=== PATIENT | female | born 1995 | race Caucasian/White ===

== ENCOUNTER 2019-11-22 09:25 | Emergency (ER) | payer MEDICAID, SELFPAY ==
[2019-11-22 09:26] VITALS: BP 135/80; PULSE 83; RESP 16; TEMP 36.8; O2SAT 98; BMI 43.9
[2019-11-22 09:55] LABS: Color, Urine Yellow (Yellow); Glucose, Dipstick Normal (Normal); Ketone-Dipstick Negative (Negative); Leukocyte Esterase-Dipstick 25 /ul (Negative); Nitrite-Dipstick Negative (Negative); Occult Blood-Urine 250 /ul (Negative); Protein-Dipstick Negative (Negative); Urine Bilirubin Dipstick Negative (Negative); Urine Clarity Clear (Clear); Urine Urobilinogen Normal (Normal)
--- NOTE | 2019-11-22 09:55 | ED.VIS.GEN ---
History of Present Illness Onset: Yesterday Context: Gradual Onset Timing: Intermittent Quality: cramping Location: pelvis Current Severity: Mild Maximum Severity: Mild Worsened by: nothing Relieved by: nothing Associated Symptoms: Vaginal bleeding, pelvic cramping Narrative: 24-year-old female G2, P1 estimated to be 5 weeks gestation based on her last menstrual period presents to the emergency department with vaginal bleeding. It started yesterday. Is gotten progressively more heavy. It is still less than her 1 of her menstrual periods, and she has not had clots or tissue. She is having mild bilateral lower pelvic cramping that she rates at a 3 out of 10. No nausea or vomiting. No diarrhea melena or hematochezia. No urinary symptoms. She has not yet had an STATUARY PAINTER visit. She is not on blood thinners. Prior similar symptoms: No Recent Illness/Hospitalization: No <Lj Romero - Last Filed: 11/22/19 10:42> <Annette Fernández - Last Filed: 11/22/19 11:20> Chief Complaint: Vag Bld, Preg Past Medical History Prior records reviewed: Yes Past Medical History: None Surgical History: no surgical history Lives: With Family Smoking Status: Never smoker <Lj Romero - Last Filed: 11/22/19 10:42> <Annette Fernández - Last Filed: 11/22/19 11:20> - Allergies and Home Meds Allergies/Adverse Reactions: Allergies Juwan flouride Adverse Reaction (Intermediate, Uncoded 11/22/19 09:26) Hives Primary Care Physician: Estrella Hannon MD [STAFF PHYSICIAN] - 2 Days Review of Systems All systems negative except as indicated General: Denies: Chills, Fever Eyes: Denies: Visual changes - bilaterally, Blurred Vision - bilaterally, Diplopia ENT: Denies: Rhinorrhea, Sore throat Cardiovascular: Denies: Chest pain, Palpitations, Heart racing Respiratory: Denies: Dyspnea, Cough, Sputum, Dyspnea on exertion Gastrointestinal: Denies: Abdominal pain, Nausea, Vomiting, Diarrhea, Constipation, Melena, Hematochezia Genitourinary: Denies: Dysuria, Hematuria, Frequency Musculoskeletal: Denies: Neck pain, Back pain, Swelling, Extremity Pain Skin: Denies: Rash, Abscess, Abrasions, Wounds Neurological: Denies: Headache, Weakness, Parasthesia, Numbness Endocrine: Denies: Polyuria, Polydipsia Hematologic: Denies: Easy bruising, Easy bleeding <Lj Romero - Last Filed: 11/22/19 10:42> Physical Exam Vital Signs/Narrative: Vital Signs Temp Pulse Resp BP Pulse Ox 11/22/19 09:26 98.3 F 83 16 135/80 H 98 Inital Vital Signs reviewed: Yes General: Well nourished, Well developed, Obese, No Acute Distress Head: Normocephalic, Atraumatic Eyes: Perrl, EOMI ENT: Moist mucous membranes Neck: Supple, Nontender, No lymphadenopathy, No JVD Cardiovascular: Regular rate, Regular rhythm, No murmurs Respiratory: No distress, CTA bilaterally, Chest nontender Abdomen: Soft, Nontender, Nondistended, Normal bowel sounds, No masses Back: Nontender, Normal Inspection Extremities: Nontender, No edema Skin: Normal color, No rash, No Trauma Neurological: Alert, Oriented x3 Psychological: Normal affect, Normal Mood <Lj Romero - Last Filed: 11/22/19 10:42> Vital Signs/Narrative: Vital Signs Temp Pulse Resp BP Pulse Ox 11/22/19 11:00 79 15 128/75 H 11/22/19 09:26 98.3 F 83 16 135/80 H 98 <Annette Fernández - Last Filed: 11/22/19 11:20> Diagnostic/Tx/Re-eval - Medical Decision Making Patient without active bleeding on arrival. Patient's laboratory work-up unremarkable her quantitative hCG is just over 200. Repeat evaluation patient is not having abdominal pain or bleeding. I spoke with her STATUARY PAINTER Dr. Hannon, recommended that the patient follow-up with her in 48 hours for repeat quantitative hCG. Discussed with patient at this time due to her low quantitative hCG level, resolution of her bleeding and the fact that she is not having pain we do not need to do a emergent ultrasound and she is agreeable with this plan. She was given return precautions. She was discharged home and will follow-up as directed <Lj Romero - Last Filed: 11/22/19 10:42> - Medical Decision Making Patient was seen with Lj agree with history physical as above her abdomen soft nontender bleeding has been spotting by her history she has no strip ectopic this is her second , at this time ED evaluation will consist of labs she has nontender abdomen bleeding is very minor we will determine advisability of ultrasound today is that technology is not readily available today and discuss management with her STATUARY PAINTER team <Annette Fernández - Last Filed: 11/22/19 11:20> ED Disposition <Lj Romero - Last Filed: 11/22/19 10:42> <Annette Fernández - Last Filed: 11/22/19 11:20> - Plan for ED Patient: Disposition: Home or Assisted Living Diagnosis: Vaginal bleeding during Instructions: POSSIBLE MISCARRIAGE (Threatened ) Referrals: Estrella Hannon MD [STAFF PHYSICIAN] - 2 Days
[2019-11-22 10:14] LABS: Absolute Lymphocyte Count 1.51 X10^3/uL (0.83-4.51); Absolute Neutrophil Count 6.2 X10^3/uL (2.0-7.7); Basophil# 0.04 X10^3/uL; Basophil% 0.5 % (0-1); Eosinophil# 0.13 X10^3/uL; Eosinophils% 1.5 % (0-5); Hematocrit 40.1 % (37-47); Lymphocyte # 1.51 X10^3/ul (4.0); Mean Corp Hgb Conc 32.4 g/dL (32-36); Mean Corpuscular Hgb 26.7 pg (27.0-32.0); Mean Corpuscular Volume 82.5 fL (81-99); Monocyte# 0.44 X10^3/uL; Monocyte% 5.2 % (0-10); NRBC Flagged by Analyzer 0 % (0-5); Neutrophil # 6.23 X10^3/uL (2.7-7.7); Neutrophil % 74.2 % (47-70); POSITIVE COUNT YES; Platelet Count 54 K/mm3 (150-450); RBC Distribution Width CV 14.2 % (11.6-14.6); RBC Distribution Width SD 42.1 fl (35.1-43.9); Red Blood Count 4.86 M/mm3 (4.2-5.4); White Blood Count 8.4 K/mm3 (4.4-11.0)
[2019-11-22 10:20] LABS: Differential Indicated SCAN CRITERIA MET
[2019-11-22 10:32] LABS: hCG Titer Quant., Serum 233 mIU/mL (1-3)
[2019-11-22 10:48] LABS: Platelet Estimate MOD DEC (ADEQ); Platelet Morphology LARGE; Red Cell Morphology NORM C+C NORMAL (NORM C&C)
[2019-11-22 11:00] VITALS: BP 128/75; PULSE 79; RESP 15
== END 2019-11-22 11:01 | disposition home or self-care (01) ==
PROVIDERS: Emergency Provider Physician Assistant Medical
DX: O20.9 Hemorrhage in early pregnancy, unspecified (principal); O99.211 Obesity complicating pregnancy, first trimester; Z3A.01 Less than 8 weeks gestation of pregnancy
CPT/HCPCS: 81002; 84702; 85025; 86900; 86901; 99284

== ENCOUNTER → 2019-11-24 | Outpatient (CLI) | payer MEDICAID, SELFPAY ==
[2019-11-22 09:26] VITALS: BMI 43.9
[2019-11-24 11:36] LABS: hCG Titer Quant., Serum 77 mIU/mL (1-3)
== END | disposition home or self-care (01) ==
LOC: LAB 10:29
PROVIDERS: Referring Provider Obstetrics & Gynecology; Visit Provider Obstetrics & Gynecology
DX: N92.6 Irregular menstruation, unspecified (principal)
CPT/HCPCS: 36415; 84702

== ENCOUNTER → 2019-12-02 | Outpatient (CLI) | payer MEDICAID, SELFPAY ==
[2019-11-22 09:26] VITALS: BMI 43.9
[2019-12-02 15:03] LABS: hCG Titer Quant., Serum 38 mIU/mL (1-3)
[2019-12-02 18:21] LABS: Chlamydia Trachomatis by PCR Negative (Negative); Neisserai gonorrhoeae by PCR Negative (Negative); Probe Check PASS; Sample Adequacy Control PASS; Specimen Processing Control PASS
[2019-12-04 14:47] LABS: HPV Reflexed? NOT INDICATED
== END | disposition home or self-care (01) ==
LOC: LAB 13:27 → LABSPEC 16:22
PROVIDERS: Referring Provider Nurse Practitioner Women's Health; Visit Provider Nurse Practitioner Women's Health
DX: O03.9 Complete or unspecified spontaneous abortion without complication (principal); Z12.4 Encounter for screening for malignant neoplasm of cervix
CPT/HCPCS: 36415; 84702; 87491; 87591; 88175; G0145

== ENCOUNTER → 2019-12-09 11:39 | Outpatient (CLI) | payer MEDICAID, SELFPAY ==
[2019-12-02 14:57] VITALS: BMI 43.9
[2019-12-09 13:17] LABS: hCG Titer Quant., Serum 34 mIU/mL (1-3)
== END ==
PROVIDERS: Referring Provider Nurse Practitioner Women's Health; Visit Provider Nurse Practitioner Women's Health
DX: O03.9 Complete or unspecified spontaneous abortion without complication (principal)
CPT/HCPCS: 36415; 84702

== ENCOUNTER → 2019-12-11 | Outpatient (CLI) | payer MEDICAID, SELFPAY ==
[2019-12-02 14:57] VITALS: BMI 43.9
[2019-12-11 12:06] LABS: hCG Titer Quant., Serum 26 mIU/mL (1-3)
== END | disposition home or self-care (01) ==
LOC: LAB 11:15
PROVIDERS: Referring Provider Obstetrics & Gynecology; Visit Provider Obstetrics & Gynecology
DX: O03.9 Complete or unspecified spontaneous abortion without complication (principal)
CPT/HCPCS: 36415; 84702

== ENCOUNTER → 2019-12-18 | Outpatient (CLI) | payer MEDICAID, SELFPAY ==
[2019-12-02 14:57] VITALS: BMI 43.9
[2019-12-18 11:35] LABS: hCG Titer Quant., Serum 29 mIU/mL (1-3)
== END | disposition home or self-care (01) ==
LOC: LAB 10:34
PROVIDERS: Referring Provider Obstetrics & Gynecology; Visit Provider Obstetrics & Gynecology
DX: O03.9 Complete or unspecified spontaneous abortion without complication (principal)
CPT/HCPCS: 36415; 84702

== ENCOUNTER → 2019-12-21 | Outpatient (CLI) | payer MEDICAID, SELFPAY ==
[2019-12-02 14:57] VITALS: BMI 43.9
[2019-12-21 13:32] LABS: hCG Titer Quant., Serum 20 mIU/mL (1-3)
== END | disposition home or self-care (01) ==
LOC: LAB 12:23
PROVIDERS: Referring Provider Obstetrics & Gynecology; Visit Provider Obstetrics & Gynecology
DX: O03.9 Complete or unspecified spontaneous abortion without complication (principal)
CPT/HCPCS: 36415; 84702

== ENCOUNTER → 2019-12-28 | Outpatient (CLI) | payer MEDICAID, SELFPAY ==
[2019-12-02 14:57] VITALS: BMI 43.9
[2019-12-28 17:03] LABS: hCG Titer Quant., Serum 17 mIU/mL (1-3)
== END | disposition home or self-care (01) ==
LOC: LAB 16:20
PROVIDERS: Referring Provider Obstetrics & Gynecology; Visit Provider Obstetrics & Gynecology
DX: O03.9 Complete or unspecified spontaneous abortion without complication (principal)
CPT/HCPCS: 36415; 84702

== ENCOUNTER → 2020-01-04 | Outpatient (CLI) | payer MEDICAID, SELFPAY ==
[2019-12-02 14:57] VITALS: BMI 43.9
[2020-01-04 16:42] LABS: hCG Titer Quant., Serum 9 mIU/mL (1-3)
== END | disposition home or self-care (01) ==
LOC: LAB 15:29
PROVIDERS: Referring Provider Nurse Practitioner Women's Health; Visit Provider Nurse Practitioner Women's Health
DX: N91.2 Amenorrhea, unspecified (principal)
CPT/HCPCS: 36415; 84702

== ENCOUNTER 2021-10-26 10:09 | Day surgery (SDC) | payer MEDICAID, SELFPAY ==
[2021-10-25 11:33] LABS: Hematocrit 35.7 % (37-47); Hemoglobin 10.6 g/dL (12.0-15.0); Mean Corp Hgb Conc 29.7 g/dL (32-36); Mean Corpuscular Hgb 20.9 pg (27.0-32.0); Mean Corpuscular Volume 70.6 fL (81-99); Platelet Count 113 K/mm3 (150-450); RBC Distribution Width CV 16.8 % (11.6-14.6); RBC Distribution Width SD 41.8 fl (35.1-43.9); Red Blood Count 5.06 M/mm3 (4.2-5.4)
[2021-10-25 12:01] LABS: AST(SGOT) 8 U/L (15-37); Alanine Aminotransfer ALT/SGPT 23 U/L (13-56); Albumin, Serum 3.5 g/dL (3.2-5.0); Alkaline Phosphatase 79 U/L (45-117); Bilirubin, Direct 0.08 mg/dL (0.00-0.30); Globulin 3.8 g/dL (2.2-4.2); International Normalized Ratio 1.2; Partial Thromboplast Time 27.3 Seconds (24.1-36.2); Protein, Total 7.3 g/dL (6.4-8.2); Prothrombin Time (Protime)PT. 14.1 SECONDS (11.7-14.9)
[2021-10-26 10:49] VITALS: BP 122/78; PULSE 104; RESP 18; TEMP 36.6; O2SAT 99; BMI 47.5
[2021-10-26 10:53] LABS: Internal QC Validated? YES +Cl - CLEAR BKGD; Pregnancy, Urine Negative Negative
[2021-10-26] MEDS: Lactated Ringers 1,000 ML 15 ML IV (11:02)
[2021-10-26] MEDS: Celecoxib 200 MG Capsule PO (11:06)
[2021-10-26] MEDS: Acetaminophen 500 MG Tablet 1000 MG PO (11:06)
[2021-10-26] MEDS: Bupivacaine Mpf 0.5% 30 ML VIAL (12:39)
[2021-10-26] MEDS: Levonorgestrel IUD (Liletta) 1 EACH INTRA-UTER (13:03)
--- NOTE | 2021-10-26 13:14 | OP.PCM_ITS ---
Problems Associated Problem List Diagnoses (1) Request for sterilization: (2) Encounter for IUD insertion: Report of Operation Date of Procedure: 10/26/21 Pre-Operative Diagnosis: IUD insertion, Sterilization request Post-Operative Diagnosis: same Surgery/Procedure Performed:: Laparoscopic bilateral salpingectomy and Liletta IUD insertion Description of Surgical Findings:: normal vagina and cervix, normal uterus, tubes and ovaries Surgeon: Romina Park well logging mud analysis captain: None Type of Anesthesia: General Anesthesiologist: Rex Holliday Special Medications: none Specimen's removed: bilateral fallopian tubes Drains: none Estimated Blood Loss (mL): 10 Fluids Replaced: 600 Description of Procedure: The patient was taken to the operating room where she was prepped and draped in the dorsolithotomy position. A weighted speculum was placed in the vagina and the anterior lip of the cervix was grasped with a tenaculum. The Elvira uterine manipulator was placed and the remainder of the instruments were removed from the vagina. Attention was turned to the abdomen. All port sites were infiltrated with 0.5% Marcaine before skin incisions were made. A 5 mm intraumbilical incision was made. The anterior abdominal wall was tented up with 2 towel clamps while a 5 mm blade less trocar and sleeve were directly inserted. Intraperitoneal placement was confirmed with the laparoscope. The pneumoperitoneum was created and the underlying abdominal contents were intact. The patient was placed in Trendelenburg. Right and left lower quadrant ports were placed under direct visualization lateral to the inferior epigastric vessels. The bowel was swept away and the above findings were noted. The Enseal device was used to clamp seal and transect the antimesenteric portions of the right tube to the cornual insertion of the uterus. The tube was amputated from the uterus and the pedicles were all confirmed to be hemostatic. The same procedure was performed on the contralateral side. The specimens were brought out through a 5 mm port. The pedicles were again examined and found to be hemostatic. The lateral ports were removed under direct visualization and no active bleeding was noted. The pneumoperitoneum was released. The skin incisions were closed with Monocryl suture in a subcuticular fashion and skin glue. The Liletta IUD was then inserted in the usual sterile fashion. The strings were trimmed to 2 cm. The vaginal instruments were removed and the vaginal sweep was completed by me. I performed the entire procedure. All sponge and needle counts were correct and the patient was taken to the recovery room in stable condition. Grafts/Implants Used: Liletta IUD Procedure Start Time: 12:40 Procedure Stop Time: 13:07 Complications none Admit VTE Documentation VTE Present on Admission: No VTE Mechan Device Prophylaxis: SCD's VTE Pharm Prophylaxis ordered?: No Reason prophylaxis not ordered:: Procedure Not Indicated
[2021-10-26 13:16] VITALS: BP 119/70; BP 122/78; PULSE 70; RESP 16; TEMP 36.7; O2SAT 97
--- NOTE | 2021-10-26 13:20 | FALS_PTH ---
PATIENT: CHERYL MCKEE LOC: [facility] – [place] U#:[id number] AGE/SX: 26/F ROOM: RE10/26/[address]: Dr. Romina Park MD : 1995 BED: DIS: 10/26/2021 SPEC #: [id number] RECD: 10/26/21 14:46 STATUS: VIC [place] #: [id number] SANTIAGO: 10/26/21 13:[address]: Romina Park DEPT: SURGICAL PATHOLOGY RECD BY: Loreta Hahn ENTERED: 10/27/21 09:41 SP TYPE: FALL TUBES OTHR DR: Dr. Stef Farrell MD No Primary Care Phys Tissues: Fallopian tube Procedures: Surgery Specimen Level II HEADER OPERATION: Laparoscopic salpingectomy, bilateral, IUD insertion PRE-OP DIAGNOSIS: Anemia, blood dyscrasia, sterilization TISSUE SUBMITTED: Bilateral fallopian tubes MICROSCOPIC DIAGNOSIS Bilateral fallopian tubes, salpingectomy: Bilateral fallopian tubes, no pathologic diagnosis. MARGUERITE:aminah 10/30/2021 MICROSCOPIC DESCRIPTION Slides are reviewed. GROSS DESCRIPTION Received in fixative is one container labeled with the patient's name and designated bilateral fallopian tubes. The specimen consists of bilateral fallopian tubes including fimbrial ends measuring 5 cm in length and 0.5 cm in diameter and 6 cm in length and 0.5 cm in diameter. The fallopian tubes are not identified as right or left. Sections reveal unremarkable cut surfaces. [employer] Consultant sections are submitted in two cassettes with each cassette containing one fallopian tube. / Justin 10/27/2021 TC:4 CPT: 25129 x2
--- NOTE | 2021-10-26 13:22 | PCM.DC ---
Discharge Instructions Diet Discharge Diet: No restrictions Activity May resume sexual activity in: 1 week Dressing / Incision Call your doctor if your incision/area has: Sudden Increased Bleeding and Foul Smelling Discharge Call your doctor if you observe: Fever of 101 or Higher Cleanse incision/area with: Soap & Water (Your incisions have skin glue and it can get wet. Leave on until it falls off) Follow Up Care Please Follow Up With: Romina Park MD When: In my office or virtual visit in 1-2 weeks or as needed Test Results: Test results from this visit will be discussed in further detail at your follow-up appointment, if applicable. Discharge Plan Admission Primary Reason for Your Visit: tubal removal Attending Provider: Romina Park Primary Care Provider: Care Physician,No Primary Consulting Providers: Stef Farrell Discharge Orders/Prescriptions Prescriptions: New ibuprofen [ibuprofen] 600 MG tablet 600 mg PO Q6H PRN (Reason: Pain) 20 Days Qty: 30 RF: 1 oxycodone 5 MG tablet 2.5 - 5 mg PO Q6H PRN PRN (Reason: severe pain) 3 Days Qty: 8 RF: 0 Referrals / Follow Up: Care Physician,No Primary [Primary Care Provider] - Disposition Disposition (needs filled in before D/C Order can be placed): Home, Self Care
[2021-10-26 13:30] VITALS: BP 122/78; BP 124/72; PULSE 67; RESP 16
[2021-10-26 13:45] VITALS: BP 103/89; BP 122/78; PULSE 60; RESP 16; O2SAT 99
[2021-10-26 14:00] VITALS: BP 100/72; BP 122/78; PULSE 78; RESP 16; TEMP 36.7; O2SAT 99
[2021-10-26] MEDS: oxyCODONE 5 MG Tablet PO (14:23)
[2021-10-26 15:08] VITALS: BP 119/67; BP 122/78; PULSE 77; RESP 18; TEMP 36.5; O2SAT 100
== END 2021-10-26 23:59 | disposition home or self-care (01) ==
LOC: SDC 10:10 → AC 10:10
PROVIDERS: Anesthesiology; Referring Provider Obstetrics & Gynecology; Visit Provider Obstetrics & Gynecology
PROC: (CPT 58661; principal; 2021-10-26 13:05)
DX: Z30.2 Encounter for sterilization (principal); Z30.430 Encounter for insertion of intrauterine contraceptive device; D64.9 Anemia, unspecified; Z79.899 Other long term (current) drug therapy
CPT/HCPCS: 58300; 58661; 00840; 36415; 80076; 81025; 85027; 85610; 85730; 87426; 88302; C9803; J7120; C1760; J2405

== ENCOUNTER → 2023-07-29 | Outpatient (CLI) | payer MEDICAID, SELFPAY ==
[2023-07-29 12:39] LABS: Hematocrit 41.1 % (37-47); Hemoglobin 13.1 g/dL (12.0-15.0); Mean Corp Hgb Conc 31.9 g/dL (32-36); Mean Corpuscular Hgb 26.6 pg (27.0-32.0); Mean Corpuscular Volume 83.4 fL (81-99); POSITIVE COUNT YES; Platelet Count 83 K/mm3 (150-450); RBC Distribution Width CV 13.7 % (11.6-14.6); RBC Distribution Width SD 41.9 fl (35.1-43.9); Red Blood Count 4.93 M/mm3 (4.2-5.4); White Blood Count 8.3 K/mm3 (4.4-11.0)
[2023-07-29 13:03] LABS: Vitamin D,25 Hydroxy 26.2 ng/mL
[2023-07-29 13:20] LABS: Hemoglobin A1c 4.9 % (3.8-5.6)
[2023-07-29 13:22] LABS: ALB/GLOB Ratio 1.1 RATIO (0.9-2.4); AST(SGOT) 27 U/L (15-37); Alanine Aminotransfer ALT/SGPT 19 U/L (13-56); Albumin, Serum 3.6 g/dL (3.2-5.0); Alkaline Phosphatase 61 U/L (45-117); Anion Gap 5 (5-15); BUN 10 mg/dL (7-18); BUN/Creat Ratio 15.3 RATIO (10-20); Calcium,Total 8.4 mg/dL (8.5-10.1); Chloride 110 mmol/L (98-107); Creatinine, Serum 0.66 mg/dL (0.55-1.02); EST Glomerular Filtration Rate 115 mL/min (>60); Est Glom Filt Rate - Afr Amer 139 mL/min (>60); Globulin 3.3 g/dL (2.2-4.2); Glucose 93 mg/dL (74-106); Iron 85 ug/dL (50-170); Iron Binding Capacity,Total 374 ug/dL (250-450); Potassium 4.9 mmol/L (3.5-5.1); Protein, Total 6.9 g/dL (6.4-8.2); Sodium Level 136 mmol/L (136-145); Thyroid Stim Hormone (TSH) 1.28 uIU/mL (0.358-3.74)
== END | disposition home or self-care (01) ==
LOC: LAB 11:15
DX: E55.9 Vitamin D deficiency, unspecified (principal); E61.1 Iron deficiency
CPT/HCPCS: 36415; 80053; 82306; 83036; 83540; 83550; 84443; 85027

== ENCOUNTER 2023-11-06 11:30 | Outpatient (RCR) | payer MEDICAID, SELFPAY | END 2023-11-14 23:59 | LOC: NS 11:30 | PROVIDERS: PCP Internal Medicine; Referring Provider Internal Medicine; Visit Provider Internal Medicine | DX: Z71.3 Dietary counseling and surveillance (principal); E66.01 Morbid (severe) obesity due to excess calories; Z68.43 Body mass index [BMI] 50.0-59.9, adult | CPT/HCPCS: 97802; 97803 ==

== ENCOUNTER 2023-11-19 11:45 | Outpatient (RCR) | payer MEDICAID, SELFPAY | END 2023-12-15 23:59 | LOC: NS 11:45 | PROVIDERS: PCP Internal Medicine; Referring Provider Internal Medicine; Visit Provider Internal Medicine | DX: Z71.3 Dietary counseling and surveillance (principal); E66.01 Morbid (severe) obesity due to excess calories; Z68.43 Body mass index [BMI] 50.0-59.9, adult | CPT/HCPCS: 97803 ==

== ENCOUNTER 2023-12-18 10:52 | Outpatient (RCR) | payer MEDICAID, SELFPAY | END 2024-01-14 23:59 | LOC: NS 10:52 | PROVIDERS: PCP Internal Medicine; Referring Provider Internal Medicine; Visit Provider Internal Medicine | DX: Z71.3 Dietary counseling and surveillance (principal); E66.01 Morbid (severe) obesity due to excess calories; Z68.43 Body mass index [BMI] 50.0-59.9, adult | CPT/HCPCS: 97803 ==

== ENCOUNTER 2024-01-22 10:56 | Outpatient (RCR) | payer MEDICAID, SELFPAY | END 2024-02-14 23:59 | LOC: NS 10:56 | PROVIDERS: PCP Internal Medicine; Referring Provider Internal Medicine; Visit Provider Internal Medicine | DX: Z71.3 Dietary counseling and surveillance (principal); E66.01 Morbid (severe) obesity due to excess calories; Z68.43 Body mass index [BMI] 50.0-59.9, adult | CPT/HCPCS: 97803 ==

== ENCOUNTER 2024-02-26 10:48 | Outpatient (RCR) | payer MEDICAID, SELFPAY | END 2024-03-15 23:59 | LOC: NS 10:48 | PROVIDERS: PCP Internal Medicine; Referring Provider Internal Medicine; Visit Provider Internal Medicine | DX: Z71.3 Dietary counseling and surveillance (principal); E66.01 Morbid (severe) obesity due to excess calories; Z68.43 Body mass index [BMI] 50.0-59.9, adult | CPT/HCPCS: 97803 ==

== ENCOUNTER 2024-03-31 11:01 | Outpatient (RCR) | payer MEDICAID, SELFPAY | END 2024-04-15 23:59 | LOC: NS 11:01 | PROVIDERS: PCP Internal Medicine; Referring Provider Internal Medicine; Visit Provider Internal Medicine | DX: Z71.3 Dietary counseling and surveillance (principal); E66.01 Morbid (severe) obesity due to excess calories; Z68.43 Body mass index [BMI] 50.0-59.9, adult | CPT/HCPCS: 97803 ==

== ENCOUNTER 2024-04-30 10:47 | Outpatient (RCR) | payer MEDICAID, SELFPAY | END 2024-05-16 23:59 | LOC: NS 10:47 | PROVIDERS: PCP Internal Medicine; Referring Provider Internal Medicine; Visit Provider Internal Medicine | DX: Z71.3 Dietary counseling and surveillance (principal) ==

== ENCOUNTER 2024-04-30 15:30 | Outpatient (RCR) | payer MEDICAID, SELFPAY | END 2024-05-16 23:59 | LOC: NS 15:30 | PROVIDERS: PCP Internal Medicine; Referring Provider Internal Medicine; Visit Provider Internal Medicine | DX: Z71.3 Dietary counseling and surveillance (principal); E66.01 Morbid (severe) obesity due to excess calories; Z68.43 Body mass index [BMI] 50.0-59.9, adult | CPT/HCPCS: 97803 ==

== ENCOUNTER → 2024-05-09 | Outpatient (CLI) | payer MEDICAID, SELFPAY ==
[2024-05-09 09:10] LABS: Hematocrit 40.8 % (37-47); Hemoglobin 13.6 g/dL (12.0-15.0); Mean Corp Hgb Conc 33.3 g/dL (32-36); Mean Corpuscular Hgb 28.2 pg (27.0-32.0); Mean Corpuscular Volume 84.6 fL (81-99); Platelet Count 117 K/mm3 (150-450); RBC Distribution Width CV 13.7 % (11.6-14.6); RBC Distribution Width SD 42.3 fl (35.1-43.9); Red Blood Count 4.82 M/mm3 (4.2-5.4); White Blood Count 8.9 K/mm3 (4.4-11.0)
[2024-05-09 10:07] LABS: Hemoglobin A1c 4.7 % (3.8-5.6)
[2024-05-09 10:13] LABS: ALB/GLOB Ratio 1.1 RATIO (0.9-2.4); AST(SGOT) 8 U/L (15-37); Alanine Aminotransfer ALT/SGPT 14 U/L (13-56); Albumin, Serum 3.5 g/dL (3.2-5.0); Alkaline Phosphatase 64 U/L (45-117); Anion Gap 7 (5-15); BUN 12 mg/dL (7-18); BUN/Creat Ratio 14.1 RATIO (10-20); Calcium,Total 8.5 mg/dL (8.5-10.1); Chloride 114 mmol/L (98-107); Creatinine, Serum 0.85 mg/dL (0.55-1.02); EST Glomerular Filtration Rate 85 mL/min (>60); Est Glom Filt Rate - Afr Amer 102 mL/min (>60); Globulin 3.1 g/dL (2.2-4.2); Glucose 103 mg/dL (74-106); Iron 39 ug/dL (50-170); Iron Binding Capacity,Total 282 ug/dL (250-450); PERCENT IRON SATURATION 13.8 % (15.0-55.0); Potassium 3.7 mmol/L (3.5-5.1); Protein, Total 6.6 g/dL (6.4-8.2); Sodium Level 141 mmol/L (136-145)
[2024-05-11 10:10] LABS: Vitamin D,25 Hydroxy 34.2 ng/mL
== END | disposition home or self-care (01) ==
LOC: LAB 08:08
PROVIDERS: PCP Internal Medicine; Referring Provider Counselor Mental Health; Visit Provider Counselor Mental Health
DX: E55.9 Vitamin D deficiency, unspecified (principal); E61.1 Iron deficiency
CPT/HCPCS: 36415; 80053; 82306; 83036; 83540; 83550; 84443; 85027

== ENCOUNTER 2024-05-28 09:00 | Outpatient (RCR) | payer MEDICAID, SELFPAY | END 2024-06-15 23:59 | LOC: NS 09:00 | PROVIDERS: PCP Internal Medicine; Referring Provider Internal Medicine; Visit Provider Internal Medicine | DX: Z71.3 Dietary counseling and surveillance (principal); E66.01 Morbid (severe) obesity due to excess calories; Z68.43 Body mass index [BMI] 50.0-59.9, adult | CPT/HCPCS: 97803 ==

== ENCOUNTER 2024-05-28 09:50 | Outpatient (RCR) | payer MEDICAID, SELFPAY | END 2024-06-15 23:59 | LOC: NS 09:50 | PROVIDERS: PCP Internal Medicine; Referring Provider Internal Medicine; Visit Provider Internal Medicine | DX: Z71.3 Dietary counseling and surveillance (principal) ==

== ENCOUNTER 2024-07-02 10:11 | Outpatient (RCR) | payer MEDICAID, SELFPAY | END 2024-07-16 23:59 | LOC: NS 10:11 | PROVIDERS: PCP Internal Medicine; Referring Provider Internal Medicine; Visit Provider Internal Medicine | DX: Z71.3 Dietary counseling and surveillance (principal); E66.01 Morbid (severe) obesity due to excess calories; Z68.43 Body mass index [BMI] 50.0-59.9, adult | CPT/HCPCS: 97803 ==

== ENCOUNTER 2024-08-04 10:14 | Outpatient (RCR) | payer MEDICAID, SELFPAY | END 2024-08-15 23:59 | LOC: NS 10:14 | PROVIDERS: PCP Internal Medicine; Referring Provider Internal Medicine; Visit Provider Internal Medicine | DX: Z71.3 Dietary counseling and surveillance (principal); E66.01 Morbid (severe) obesity due to excess calories; Z68.43 Body mass index [BMI] 50.0-59.9, adult | CPT/HCPCS: 97803 ==

== ENCOUNTER 2024-09-03 09:49 | Outpatient (RCR) | payer MEDICAID, SELFPAY | END 2024-09-15 23:59 | LOC: NS 09:49 | PROVIDERS: PCP Internal Medicine; Referring Provider Internal Medicine; Visit Provider Internal Medicine | DX: Z71.3 Dietary counseling and surveillance (principal); E66.01 Morbid (severe) obesity due to excess calories; Z68.43 Body mass index [BMI] 50.0-59.9, adult | CPT/HCPCS: 97803 ==

== ENCOUNTER 2024-10-08 09:46 | Outpatient (RCR) | payer MEDICAID, SELFPAY | END 2024-10-16 23:59 | LOC: NS 09:46 | PROVIDERS: PCP Internal Medicine; Referring Provider Internal Medicine; Visit Provider Internal Medicine | DX: Z71.3 Dietary counseling and surveillance (principal); E66.01 Morbid (severe) obesity due to excess calories; Z68.42 Body mass index [BMI] 45.0-49.9, adult | CPT/HCPCS: 97803 ==

== ENCOUNTER 2024-11-12 09:57 | Outpatient (RCR) | payer MEDICAID, SELFPAY | END 2024-11-13 23:59 | LOC: NS 09:57 | PROVIDERS: PCP Internal Medicine; Referring Provider Internal Medicine; Visit Provider Internal Medicine | DX: Z71.3 Dietary counseling and surveillance (principal); E66.01 Morbid (severe) obesity due to excess calories; Z68.43 Body mass index [BMI] 50.0-59.9, adult | CPT/HCPCS: 97803 ==

== ENCOUNTER 2024-12-10 11:33 | Outpatient (RCR) | payer MEDICAID, SELFPAY | END 2024-12-14 23:59 | LOC: NS 11:33 | PROVIDERS: PCP Internal Medicine; Referring Provider Internal Medicine; Visit Provider Internal Medicine | DX: Z71.3 Dietary counseling and surveillance (principal); E66.01 Morbid (severe) obesity due to excess calories; Z68.42 Body mass index [BMI] 45.0-49.9, adult | CPT/HCPCS: 97803 ==

== ENCOUNTER → 2025-05-08 | Outpatient (CLI) | payer MEDICAID, SELFPAY ==
--- OUTSIDE RECORDS SUMMARY | 2025-05-08 08:14 | XMS RPT_ITS | CCD ---
Author Organization [facility] Care Team Providers Care Leaf Tinner Name Role Phone Care Physician, No Primary Primary Care Provider Unavailable Care Physician, No Primary Referring Provider Un available Dr. Yaquelin Stephens Attending Provider Angelo WHITT, Dr. Jamison Primary Care Provider [phone] Angelo WHITT, Dr. Jamison Attending Provider Angelo WHITT, Dr. Jamison Referring Provider Andrez Valenzuela Attending Provider [place], Yaquelin Primary Care Unavailable [place], Yaquelin Attending Unavailable Angelo, Yaquelin Referring Unavailable Angelo, Yaquelin Attending Unavailable [place], Yaquelin Referring Unavailable Angelo, Yaquelin Primary Care Unavailable [place], Yaquelin Primary Care Unavailable Care Physician, No Primary Referring Unava ilable Angelo, Yaquelin Attending Unavailable [place], Yaquelin Attending Unavailable Angelo, Yaquelin Referring Unavailable [place], Yaquelin Primary Care Unavailable [place], Yaquelin Attending Unavailable [place], Yaquelin Referring Unavailable [place], Yaquelin Primary Care Unavailable Angelo, Yaquelin Primary Care Unavailable JIHAN PRA, SCAR Attending Unavailable JIHAN PRA, SCAR Referring Unavailable Angelo, Yaquelin Primary Care Unavailable [place], Yaquelin Attending Unavailable [place], Yaquelin Referring Unavailable [place], Yaquelin Attending Unavailable Angelo, Yaquelin Referring Unavailable [place], Yaquelin Primary Care Unavailable Angelo, Yaquelin Primary Care Unavailable Andrez Valenzuela Attending Unavailable Angelo, Yaquelin Primary Care Unavailable [place], Yaquelin Attending Unavailable Angelo, Yaquelin Referring Unavailable Angelo, Yaquelin Primary Care Unavailable [place], Yaquelin Attending Unavailable Angelo, Yaquelin Referring Unavailable Angelo, Yaquelin Primary Care Unavailable Angelo, Yaquelin Primary Care Unavailable Angelo, Yaquelin Attending Unavailable [place], Yaquelin Referring Unavailable [place], Yaquelin Primary Care Unavailable [place], Yaquelin Attending Unavailable Angelo, Yaquelin Referring Unavailable [place], Yaquelin Primary Care Unavailable [place], Yaquelin Primary Care Unavailable [place], Yaquelin Attending Unavailable Angelo, Yaquelin Referring Unavailable [place], Yaquelin Primary Care Unavailable [place], Yaquelin Attending Unavailable [place], Yaquelin Referring Unavailable [place], Yaquelin Primary Care Unavailable [place], Yaquelin Referring Unavailable Angelo, Yaquelin Attending Unavailable [place], Yaquelin Primary Care Unavailable [place], Yaquelin Referring Unavailable Angelo, Yaquelin Attending Unavailable [place], Yaquelin Attending Unavailable Angelo, Yaquelin Referring Unavailable Agnelo, Yaquelin Primary Care Unavailable Angelo, Yaquelin Attending Unavailable Angelo, Yaquelin Referring Unavailable [place], Yaquelin Primary Care Unavailable Angelo, Yaquelin Primary Care Unavailable Angelo, Yaquelin Attending Unavailable [place], Yaquelin Referring Unavailable Allergies Allergy Classification Reported Allergen(s) Allergy Type Date of Onset Reaction(s) Facility (6 sources) Environmental Allergies: Uncoded; Translations: [Environmental Allergies: Uncoded] Propensity to adverse reactions 3 [facility] Comment on above: poly flourides Medications Current Medications Medication Drug Class(es) Dates Sig (Normalized) Sig (Original) cholecalciferol 0.025 mg oral capsule (4 sources) Vitamin D Start: 10-01-2023 take 1 capsule by mouth once daily Cholecalciferol (Vitamin D3) 25 mcg (1,000 unit) capsule Active 25 ug PO DAILY October 01, 2023 1:00am hydrOXYzine pamoate 25 mg oral capsule (4 sources) Antihistamine Start: 10-01-2023 take 1 capsule by mouth at bedtime Hydroxyzine Pamoate (Vistaril) 25 mg capsule Active 25 mg PO AT BEDTIME October 01, 2023 1:00am IUD (4 sources) Start: 10-01-2023 IUD Active VAGINAL October 01, 2023 1:00am Start: 10-01-2023 IUD Active VAG INAL October 01, 2023 12:00am lamoTRIgine 25 mg oral tablet (4 sources) Mood Stabilizer, Anti-epileptic Agent Start: 10-01-2023 Lamotrigine 25 mg tablet Active mg PO October 01, 2023 1:00am Start: 10-01-2023 Lamotrigine Ac tive MG PO October 01, 2023 1:00am ondansetron 4 mg oral tablet (1 source) Serotonin-3 Receptor Antagonist Start: 09-30-2024 take 1 tablet by mouth every six hours as needed for nausea and vomiting Ondansetron Hcl 4 mg tablet Active 4 mg PO EVERY 6 HOURS as needed for nausea and vomiting September 30, 2024 1:00am topiramate 50 mg oral tablet (5 sources) Start: 03-17-2024 Topiramate 50 mg tablet Active 100 mg PO March 17, 2024 1:27pm Start: 10-01-2023 End: 03-17-2024 Topiramate 50 mg tablet Disc ontinued mg PO October 01, 2023 1:00am March 17, 2024 1:27pm Start: 10-01-2023 Topiramate Act abigail MG PO October 01, 2023 1:00am traZODone hydrochloride 50 mg oral tablet (4 sources) Serotonin Reuptake Inhibitor Start: 10-01-2023 Trazodone 50 mg tablet Active mg PO October 01, 2023 1:00am Start: 10-01-2023 Trazodone Acti ve MG PO October 01, 2023 1:00am Completed/Discontinued Medications Medication Drug Class(es) Dates Sig (Normalized) Sig (Original) ibuprofen 600 mg oral tablet (5 sources) Nonsteroidal Anti-inflammatory Drug Start: 10-26-2021 End: 10-01-2023 take 1 tablet by mouth every six hours as needed for pain Ibuprofen 600 MG tablet Discontinued 600 mg PO EVERY 6 HOURS as needed for Pain 30 October 26, 2021 1:00am October 01, 2023 2:44pm oxyCODONE hydrochloride 5 mg oral tablet (5 sources) Opioid Agonist Start: 10-26-2021 End: 10-01-2023 take 2.5-5 mg by mouth every six hours as needed for pain Oxycodone 5 MG tablet Discontinued 2.5 - 5 mg PO EVERY 6 HOURS NEEDED as needed for severe pain 8 3 October 26, 2021 October 01, 2023 2:44pm Vit,Beki39-Qywy-Urfy c (4 sources) Start: 11-22-2019 End: 12-02-2019 take 1 tablet by mouth once daily Vit,Atwd22-Onwb-Oe lic Discontinued 1 TABLET PO DAILY November 22, 2019 1:00am December 02, 2019 2:55pm Start: 11-22-2019 End: 12-02-2019 take 1 tablet by mouth once daily Vit,Bsyt65-Lbzk-Vosib Discontinued 1 TABLET PO DAILY November 22, 2019 12:00am December 02, 2019 1:55pm Vit,Looz82-Ssid-Csfqb 1 TABLET tablet (1 source) Start: 11-22-2019 End: 12-02-2019 take 1 tablet by mouth once daily Vit,Wymv36-Vmod-Vsjvh 1 TABLET tablet Discontinued 1 {tbl} PO DAILY November 22, 2019 1:00am December 02, 2019 2:55pm Problems Problem Classification Problem Date Documented Date Episodic/Chronic Administrative/socia l admission (3 sources) Persons encountering health services in other specified circumstances; Translations: [Other reasons for seeking consultation] 10-01-2023 Episodic Anxiety disorders (8 sources) Post-traumatic stress disorder, unspecified; Translations: [Posttraumatic stress disorder] 10-01-2023 Chronic Coagulation and hemorrhagic disorders (4 sources) Immune thrombocytopenic purpura; Translations: [Immune thrombocytopenic purpura] 10-01-2023 Chronic Contraceptive and procreative management (10 sources) Sterilization requested; Translations: [Encounter for sterilization] 11-03-2021 Episodic Hemorrhage during ; abruptio placenta; placenta previa (5 sources) Bleeding from female genital tract during ; Translations: [Antepartum hemorrhage, unspecified, unspecified trimester] 11-23-2019 Episodic Intestinal infection (3 sources) Viral gastroenteritis; Translations: [Viral intestinal infection, unspecified] Onset: 09-30-2024 09-30-2024 Episodic Nausea and vomiting (2 sources) Nausea and vomiting; Translations: [Nausea with vomiting, unspecified] Onset: 09-30-2024 09-30-2024 Episodic Nutritional deficiencies (5 sources) Vitamin D deficiency, unspecified; Translations: [Unspecified vitamin D deficiency] Onset: 05-19-2024 10-01-2023 Chronic Other nervous system disorders (5 sources) Postoperative pain ; Translations: [Other acute postprocedural pain] 10-26-2021 Episodic Other nutritional; endocrine; and metabolic disorders (5 sources) Morbid (severe) obesity due to excess calories; Translations: [Morbid obesity] Onset: 12-15-2024 10-01-2023 Chronic Other nutritional; endocrine; and metabolic disorders (1 source) Body mass index 40+ - severely obese; Translations: [Morbid (severe) obesity due to excess calories] 10-08-2024 Chronic Residual codes; unclassified (3 sources) Immunization not carried out because of patient refusal; Translations: [Vaccination not carried out because of patient refusal] 10-01-2023 Episodic Residual codes; unclassified (1 source) Influenza vaccination declined; Translations: [Immunization not carried out because of patient refusal] 10-08-2024 Episodic Residual codes; unclassified (1 source) Memory impairment; Translations: [Other amnesia] 10-08-2024 Episodic Results Test Name Value Interpretation Reference Range Facility Internal Medicine Office Vis iton 10-07-2024 Internal Medicine Office Visit [facility] [address] [place] [address] OFFICE VISIT Date of Service: 10/08/24 MR#: [id number] Acct: [id number] Name: CHERYL SQIURES Rep #: [id number] : 1995 Provider: Dr. Yaquelin rosa MD Age/Sex: 29/F [place] [facility] Status: Signed Intake Vital Signs 09/03/24 10:00 10/08/24 10:01 10/08/24 11:25 Height 5 ft 2 in 5 ft 2 in 5 ft 2 in Weight: 257 lb BMI 47.0 BP 118/78 Blood Pressure Location Lt brachial Position Sitting Respiration 16 Pulse 106 H Pulse Source Monitor Temp 97.6 F L Temp Source Temporal Pulse Oximetry (%) 99 Oxygen Delivery Method room air Intake Visit Reasons: 6 M FU Chief Complaint: 6M FU Investment Specialist Required: No Accompanied by: Self Is patient in pain?: No Allergies Environmental Allergies: Uncoded Adverse Reaction (Intermediate, Verified 10/08/24 11:23) Hives Medications ???Medication ???Instructions ???Recorded ???Confirmed ???Type IUD vaginal 10/01/23 10/08/24 History cholecalciferol (vitamin D3) 25 25 mcg PO DAILY 10/01/23 10/08/24 History mcg (1,000 unit) capsule hydroxyzine pamoate 25 mg capsule 25 mg PO QHS 10/01/23 10/08/24 History (Vistaril) lamotrigine 25 mg tablet mg PO 10/01/23 10/08/24 History trazodone 50 mg tablet mg PO 10/01/23 10/08/24 History topiramate 50 mg tablet 100 mg PO 03/17/24 10/08/24 History ondansetron HCl 4 mg tablet 4 mg PO Q6H PRN nausea and 09/30/24 10/08/24 Rx vomiting #20 tabs PFSH Medical History (Updated 10/08/24 @ 11:[address] Yaquelin Stephens MD) Chronic post-traumatic stress disorder (PTSD) Cyclothymia Eczema Emotional problems Anemia Allergies Wears glasses Depression Anxiety Rapid heart beat Post-néstor depression Chronic ITP (idiopathic thrombocytopenic purpura) Surgical History History of salpingectomy Family History (Updated 10/08/24 @ 11:[address] Yaquelin Stephens MD) Father Diabetes Hypertension High cholesterol Mother Anxiety Acute depression Hypertension High cholesterol Mental disorder bi polar Depressed Grandfather Cancer bladder. Social History (Updated 10/08/24 @ 11:[address] 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 She is not due for any routine blood work. She is up to date on her pap smear. She doesn't want a flu shot. She doesn't smoke and doesn't need any refills. She reports she is trying to eat healthy and staying active. The patient continues to follow with the counseling center and sees both a psychiatrist and counselor. She sees her psychiatrist every 1-3 months and her counselor is twice monthly. She reports she has been having some memory changes, in particular, recalling words/her medications, etc. She states it has been going on for around a month and a half. Her psychiatrist thinks it may be related to her medications and will be adjusting them at her next office visit. She denies any thoughts of suicide. She has a good support system at home. At her last office visit, she had concerns about her weight. She reports she has lost another 9 pounds since she was last seen and has been able to maintain it. She continues to follow with the [facility] and finds that beneficial. She reports she hasn't been going to the gym as often as she used to. She has a history of ITP. She was seeing a manager style in [place] during her , but hasn't seen them recently. She has never needed any type of medication treatment. She reports occasional bruising, but otherwise denies any problems. The patient was seen at the urgent care last week for nausea and vomiting. She reports those symptoms have since resolved. She has no questions or concerns today. ROS Const Constitutional: Positive for weight change; No body ache, chills, excessive sweating, fatigue, fever(s), frequent falls, headache(s), snoring, weakness or change in appetite Eyes Eyes: No blurry vision, change in vision, eye pain or Light sensitivity ENT ENT: No abnormal hearing, ear or mastoid pain, tinnitus, nasal congestion, headache(s), neck pain or sore throat Resp Respiratory: No cough, shortness of breath, sn (more content not included)... Normal [facility] Office Visit Reporton 2024 Office Visit Report [facility] [address] [place] [address] OFFICE VISIT Date of Service: 09/30/24 MR#: [id number] Acct: [id number] Patient: CHERYL SQUIRES Rep #: [id number] : 1995 Provider: FRANKIE Forte Age/Sex: 29/F Location[place] [facility] Status: Signed Intake Vital Signs 09/03/24 10:00 Height 1.57 m Weight: 116.21 kg Intake Visit Reasons: Nausea/vomiting Chief Complaint: est care Allergies Environmental Allergies: Uncoded Adverse Reaction (Intermediate, Verified 03/17/24 13:24) Hives [facility] Medical History (Updated 09/30/24 @ 12:55 by FRANKIE Liu) Chronic post-traumatic stress disorder (PTSD) Cyclothymia Eczema Emotional problems Anemia Allergies Wears glasses Depression Anxiety Rapid heart beat Post-néstor depression Chronic ITP (idiopathic thrombocytopenic purpura) Surgical History History of salpingectomy Family History Father Diabetes Hypertension High cholesterol Mother Anxiety Acute depression Hypertension High cholesterol Mental disorder bi polar Grandfather Cancer bladder. 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 This began this AM at around 0400. She woke up with nausea and threw up. She has continued to periodically have nausea and vomiting. She has also had some diarrhea. She is able to keep down some water if she sips it slowly. She notes she has been around people who have the stomach bug that is going around and worked with people who have had it as well. She has mild abd pain before vomiting, otherwise no abd pain. No blood in vomit or stool. No fever or chills. Pt would like something for nausea. ROS Const Constitutional: No chills, fatigue or fever(s) Gastro GI: Positive for diarrhea, nausea/dyspepsia and vomiting; No Vomiting blood/hematemesis or Blood in stool Endo Endocrine: No fatigue Exam Const General: cooperative, healthy appearing, comfortable, no acute distress, well developed and well groomed Nutritional Appearance: average body habitus and well nourished Orientation: alert, awake and oriented x3 HENMT Head: normocephalic and atraumatic Resp Effort Inspection: normal respiratory effort, able to speak in complete sentences, symmetric chest movement and no cough GI Palpation: nontender Coding Level of Care Code Off vis,new,level 3 Diagnoses Nausea and vomiting R11.2 Viral gastroenteritis A08.4 Assessment and Plan Assessment and Plan (1) Nausea and vomiting: (2) Viral gastroenteritis: Status: Acute Plan: N/V/D onset this AM. Able to keep down small amounts of liquids at this time. Start zofran prn nausea. Recommended hydrate cautiously as much as possible, BRAT diet. If worsening go to the ER Disclaimer: This visit was performed virtually via live audio and video at the request of the patient. As such the physical exam and testing is limited by what is able to be seen through the patient's camera and lighting which may vary in quality, and limited by what the patient is able to perform via clinician instruction. If there is no significant improvement or new complications, the patient should follow up [id number] with a clinician of the appropriate level of care. Medications: New ondansetron HCl 4 mg PO Q6H PRN 20 tabs 0RF nausea and vomiting 09/30/24 1256 Date Andrez Mayerignramón Signature: Date (if applicable) CC: Normal [facility] Vitamin D,25 Hydroxyon 08-26 -2024 Vitamin D 25-OH 34.2 ng/mL Normal [facility] Comment on above: Result Comment: Ana min D 25(OH) Status Range Deficiency <20 ng/mL (50nmol/L) Insufficiency 20 - 30 ng/mL (50 - 75 nmol/L) Sufficiency 30 - 100 ng/mL (75 - 250 nmol/L) Toxicity >100 ng/mL (>250 nmol/L) Performed By: #### L 500.4050, L100.0500, L501.9520, L503.6030, L506.1000, L501.9985 #### [facility] [address] [place], [address] CBC-Complete Blood Cnt No ffon 05-09-2024 Erythrocyte distribution width (RBC) [Ratio] 13.7 % Normal 11.6-14.6 [facility] Comment on above: Performed By: #### L 500.4050, L100.0500, L501.9520, L503.6030, L506.1000, L501.9985 #### [facility] [address] [place], [address] Hematocrit (Bld) [Volume fraction] 40.8 % Normal 37-47 [facility] Comment on above: Performed By: #### L 500.4050, L100.0500, L501.9520, L503.6030, L506.1000, L501.9985 #### [facility] [address] [place], [address] Hemoglobin (Bld) [Mass/Vol] 13.6 g/dL Normal 12.0-15.0 [facility] Comment on above: Performed By: #### L 500.4050, L100.0500, L501.9520, L503.6030, L506.1000, L501.9985 #### [facility] [address] [place], [address] MCH (RBC) [Entitic mass] 28.2 pg Normal 27.0-32.0 [facility] Comment on above: Performed By: #### L 500.4050, L100.0500, L501.9520, L503.6030, L506.1000, L501.9985 #### [facility] [address] [place], [address] MCHC (RBC) [Mass/Vol] 33.3 g/dL Normal 32-36 [facility] Comment on above: Performed By: #### L 500.4050, L100.0500, L501.9520, L503.6030, L506.1000, L501.9985 #### [facility] [address] [place], [address] MCV (RBC) [Entitic vol] 84.6 fL Normal 81-99 [facility] Comment on above: Performed By: #### L 500.4050, L100.0500, L501.9520, L503.6030, L506.1000, L501.9985 #### [facility] [address] [place], [address] Platelets (Bld) [#/Vol] 117 10*3/uL Low 150-450 [facility] Comment on above: Performed By: #### L 500.4050, L100.0500, L501.9520, L503.6030, L506.1000, L501.9985 #### [facility] [address] [place], [address] RBC (Bld) [#/Vol] 4.82 10*6/uL Normal 4.2-5.4 [facility] Comment on above: Performed By: #### L 500.4050, L100.0500, L501.9520, L503.6030, L506.1000, L501.9985 #### [facility] [address] [place], [address] RDW SD 42.3 fl Normal 35.1-43.9 [facility] Comment on above: Performed By: #### L 500.4050, L100.0500, L501.9520, L503.6030, L506.1000, L501.9985 #### [facility] [address] [place], [address] WBC (Bld) [#/Vol] 8.9 10*3/uL Normal 4.4-11.0 [facility] Comment on above: Performed By: #### L 500.4050, L100.0500, L501.9520, L503.6030, L506.1000, L501.9985 #### [facility] [address] [place], [address] Comprehensive Metabolic Prof [facility] 05-09-2024 Albumin [Mass/Vol] 3.5 g/dL Normal 3.2-5.0 [facility] Comment on above: Performed By: #### L 500.4050, L100.0500, L501.9520, L503.6030, L506.1000, L501.9985 #### [facility] [address] [place], [address] Albumin/Globulin [Mass ratio] 1.1 {ratio} Normal 0.9-2.4 [facility] Comment on above: Performed By: #### L 500.4050, L100.0500, L501.9520, L503.6030, L506.1000, L501.9985 #### [facility] [address] [place], [address] ALK P 64 U/L Normal 45-117 [facility] Comment on above: Performed By: #### L 500.4050, L100.0500, L501.9520, L503.6030, L506.1000, L501.9985 #### [facility] [address] [place], [address] ALT [Catalytic activity/Vol] 14 U/L Normal 13-56 [facility] Comment on above: Performed By: #### L 500.4050, L100.0500, L501.9520, L503.6030, L506.1000, L501.9985 #### [facility] [address] [place], [address] AST [Catalytic activity/Vol] 8 U/L Low 15-37 [facility] Comment on above: Performed By: #### L 500.4050, L100.0500, L501.9520, L503.6030, L506.1000, L501.9985 #### [facility] [address] [place], [address] Bilirubin [Mass/Vol] 0.30 mg/dL Normal 0.20-1.00 [facility] Comment on above: Result Comment: For patients on eltrombopag therapy, use of Dimension Kiron TBIL is not recommended. Performed By: #### L 500.4050, L100.0500, L501.9520, L503.6030, L506.1000, L501.9985 #### [facility] [address] [place], [address] BUN/CRE 14.1 RATIO Normal 10-20 [facility] Comment on above: Performed By: #### L 500.4050, L100.0500, L501.9520, L503.6030, L506.1000, L501.9985 #### [facility] [address] [place], [address] CA,Total 8.5 mg/dL Normal 8.5-10.1 [facility] Comment on above: Performed By: #### L 500.4050, L100.0500, L501.9520, L503.6030, L506.1000, L501.9985 #### [facility] [address] [place], [address] Chloride [Moles/Vol] 114 mmol/L High 98-107 [facility] Comment on above: Performed By: #### L 500.4050, L100.0500, L501.9520, L503.6030, L506.1000, L501.9985 #### [facility] [address] [place], [address] CO2 [Moles/Vol] 20.0 mmol/L Low 21.0-32.0 [facility] Comment on above: Performed By: #### L 500.4050, L100.0500, L501.9520, L503.6030, L506.1000, L501.9985 #### [facility] [address] [place], [address] Creatinine [Mass/Vol] 0.85 mg/dL Normal 0.55-1.02 [facility] Comment on above: Result Comment: The validity of the calculated GFR GFRAA in patients over 70 years has not been determined. Clinical correlation is essential. Performed By: #### L 500.4050, L100.0500, L501.9520, L503.6030, L506.1000, L501.9985 #### [facility] [address] [place], [address] EST GFR - AA 102 mL/min Normal >60 [facility] Comment on above: Result Comment: Afri can Bah[place]ian GFR Calc Performed By: #### L 500.4050, L100.0500, L501.9520, L503.6030, L506.1000, L501.9985 #### [facility] [address] [place], [address] GAP 7 Normal 5-15 [facility] Comment on above: Performed By: #### L 500.4050, L100.0500, L501.9520, L503.6030, L506.1000, L501.9985 #### [facility] [address] [place], [address] GFR/1.73 sq M.predicted among non-blacks MDRD (S/P/Bld) [Vol rate/Area] 85 mL/min/{1.73_m2} Normal >60 [facility] Comment on above: Result Comment: Non- GFR Calc Performed By: #### L 500.4050, L100.0500, L501.9520, L503.6030, L506.1000, L501.9985 #### [facility] [address] [place], [address] Globulin (S) [Mass/Vol] 3.1 g/dL Normal 2.2-4.2 [facility] Comment on above: Performed By: #### L 500.4050, L100.0500, L501.9520, L503.6030, L506.1000, L501.9985 #### [facility] [address] [place], [address] Glucose [Mass/Vol] 103 mg/dL Normal 74-106 [facility] Comment on above: Result Comment: Fast ing Glucose result from 100 to 125 mg/dL suggests IMPAIRED HOMEOSTASIS per A.D.A. criteria. Performed By: #### L 500.4050, L100.0500, L501.9520, L503.6030, L506.1000, L501.9985 #### [facility] [address] [place], [address] Potassium [Moles/Vol] 3.7 mmol/L Normal 3.5-5.1 [facility] Comment on above: Performed By: #### L 500.4050, L100.0500, L501.9520, L503.6030, L506.1000, L501.9985 #### [facility] [address] [place], [address] Sodium [Moles/Vol] 141 mmol/L Normal 136-145 [facility] Comment on above: Performed By: #### L 500.4050, L100.0500, L501.9520, L503.6030, L506.1000, L501.9985 #### [facility] [address] [place], [address] T PROT 6.6 g/dL Normal 6.4-8.2 [facility] Comment on above: Performed By: #### L 500.4050, L100.0500, L501.9520, L503.6030, L506.1000, L501.9985 #### [facility] [address] [place], [address] Urea nitrogen [Mass/Vol] 12 mg/dL Normal 7-18 [facility] Comment on above: Performed By: #### L 500.4050, L100.0500, L501.9520, L503.6030, L506.1000, L501.9985 #### [facility] [address] [place], [address] Hemoglobin A1con 05-09-2024 HbA1c (Bld) [Mass fraction] 4.7 % Normal 3.8-5.6 [facility] Comment on above: Result Comment: Norm al < 5.7 % Prediabetic 5.7 - 6.4 % Diabetic >or= 6.5 % Please note range changes. Performed By: #### L 500.4050, L100.0500, L501.9520, L503.6030, L506.1000, L501.9985 #### [facility] [address] [place], [address] Iron+Iron Binding Capacityon 05-09-2024 Iron [Mass/Vol] 39 ug/dL Low 50-170 [facility] Comment on above: Performed By: #### L 500.4050, L100.0500, L501.9520, L503.6030, L506.1000, L501.9985 #### [facility] [address] [place], [address] IRON SATURATION 13.8 Low 15.0-55.0 [facility] Comment on above: Performed By: #### L 500.4050, L100.0500, L501.9520, L503.6030, L506.1000, L501.9985 #### [facility] [address] [place], [address] TIBC 282 ug/dL Normal 250-450 [facility] Comment on above: Performed By: #### L 500.4050, L100.0500, L501.9520, L503.6030, L506.1000, L501.9985 #### [facility] [address] [place], [address] Thyroid Stim Hormone (TSH)on 05-09-2024 TSH 1.130 uIU/mL Normal 0.358-3.740 [facility] Comment on above: Performed By: #### L 500.4050, L100.0500, L501.9520, L503.6030, L506.1000, L501.9985 #### [facility] [address] [place], [address] Internal Medicine Office Vis ito 03-16-2024 Internal Medicine Office Visit [facility] [address] [place] [address] [place] [address] OFFICE VISIT Date of Service: 03/17/24 MR#: [id number] Acct: [id number] Name: CHERYL SQUIRES CHELI Rep #: [id number] : 1995 Provider: Dr. Yaquelin rosa MD Age/Sex: 28/F [place] [facility] Status: Signed Intake Vital Signs 10/01/23 13:50 02/26/24 15:42 03/17/24 13:28 Height 5 ft 2 in 5 ft 2 in 5 ft 2 in Weight: 266 lb BMI 48.6 BP 122/78 H Blood Pressure Location Lt brachial Position Sitting Respiration 16 Pulse 80 Pulse Source Monitor Temp 98.4 F Temp Source Temporal Pulse Oximetry (%) 99 Oxygen Delivery Method room air Intake Visit Reasons: 6 M FU Chief Complaint: est care Investment Specialist Required: No Is patient in pain?: No Allergies Environmental Allergies: Uncoded Adverse Reaction (Intermediate, Verified 03/17/24 13:24) Hives Medications ???Medication ???Instructions ???Recorded ???Confirmed ???Type IUD vaginal 10/01/23 03/17/24 History cholecalciferol (vitamin D3) 25 25 mcg PO DAILY 10/01/23 03/17/24 History mcg (1,000 unit) capsule hydroxyzine pamoate 25 mg capsule 25 mg PO QHS 10/01/23 03/17/24 History (Vistaril) lamotrigine 25 mg tablet mg PO 10/01/23 03/17/24 History trazodone 50 mg tablet mg PO 10/01/23 03/17/24 History topiramate 50 mg tablet 100 mg PO 03/17/24 03/17/24 History PFSH Medical History (Updated 10/01/23 @ 13:[address] Yaquelin Stephens MD) Chronic post-traumatic stress disorder (PTSD) Cyclothymia Eczema Emotional problems Anemia Allergies Wears glasses Depression Anxiety Rapid heart beat Post- depression Chronic ITP (idiopathic thrombocytopenic purpura) Surgical History History of salpingectomy Family History Father Diabetes Hypertension High cholesterol Mother Anxiety Acute depression Hypertension High cholesterol Mental disorder bi polar Grandfather Cancer bladder. 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 She is not due for any routine blood work. She is up to date on her pap smear. She isn't due for any immunizations. She doesn't smoke and doesn't need any refills. She reports she is trying to eat healthy and staying active. The patient continues to follow with the counseling center and sees both a psychiatrist and counselor. She sees her psychiatrist every 1-3 months and her counselor is twice monthly. She repo rts her medication doses have been adjusted further and feels that it has helped quite a bit. She denies any problems with her medication. She states her symptoms do wax and wane, but with the higher topamax dose, it has been doing much better. She denies any thoughts of suicide. She has a good support system at home. At her last office visit, she had concerns about her weight. She reports she has lost about 19 pounds since she was last seen and has been able to maintain it. She reports some days are better than others in terms of monitoring her diet. She hasn't been going to the gym as much, but has been doing outdoor activities. She has been following with the conditioning coach and feels that has been helping with her accountability. She has a history of ITP. She was seeing a manager style in [place] during her , but hasn't seen them recently. She has never needed any type of medication treatment. She reports occasional bruising, but otherwise denies any problems. She has no questions or concerns today. ROS Const Constitutional: Positive for weight change (18 pound weight loss); No body ache, chills, excessive sweating, fatigue, fever(s), frequent falls, headache(s), snoring, weakness, sleep problems or change in appetite Eyes Eyes: No blurry vision, change in vision, eye pain or Light sensitivity ENT ENT: No abnormal hearing, ear or mastoid pain, tinnitus, nasal congestion, headache(s), neck pain or sore throat Resp Respiratory: Positive for cough (allergies); No shortness of breath, snoring or wheezing Cardio Cardiology: No chest pain at rest, chest pain with exertion, excessive sweatin (more content not included)... Normal [facility] Basophil percentageon 2022 Bilirubin [Mass/Vol] 0.50 mg/dL 0.20-1.00 [facility] Comment on above: For patients on eltr ombopag therapy, use of Dimension Kiron TBIL is not recommended. Chloride [Moles/Vol] 110 mmol/L 98-107 [facility] Glucose [Mass/Vol] 93 mg/dL 74-106 [facility] Potassium [Moles/Vol] 4.9 mmol/L 3.5-5.1 [facility] Comment on above: Slight Hemolysis, Re sult may be falsely increased. Protein [Mass/Vol] 6.9 g/dL 6.4-8.2 [facility] Sodium [Moles/Vol] 136 mmol/L 136-145 [facility] WBC (Bld) [#/Vol] 8.3 10*3/uL 4.4-11.0 [facility] Blood erythrocytes count (nu mber/volume)on 07-29-2023 RBC (Bld) [#/Vol] 4.93 10*6/uL 4.2-5.4 [facility] Blood hemoglobin measurement (mass/volume)on 07-29-2023 Hemoglobin (Bld) [Mass/Vol] 13.1 g/dL 12.0-15.0 [facility] Determination of erythrocyte mean corpuscular volume (MCV)on 07-29-2023 MCV (RBC) [Entitic vol] 83.4 fL 81-99 [facility] Hematocrit Auto (Bld) [Volum e fraction]on 07-29-2023 Hematocrit (Bld) [Volume fraction] 41.1 % 37-47 [facility] Iron measurement (mass/mass) on 07-29-2023 Iron (Unsp spec) [Mass/Mass] 85 ug/dL 50-170 [facility] Comment on above: Moderate Hemolysis, Result may be falsely increased. Laboratory - Chemistry and C hemistry - challengeon 07-29-2023 ALP [Catalytic activity/Vol] 61 U/L 45-117 [facility] ALT [Catalytic activity/Vol] 19 U/L 13-56 [facility] CO2 [Moles/Vol] 21.0 mmol/L 21.0-32.0 [facility] Globulin (S) [Mass/Vol] 3.3 g/dL 2.2-4.2 [facility] Urea nitrogen/Creatinine [Mass ratio] 15.3 mg/mg 10-20 [facility] Laboratory - Hematology and Cell countson 07-29-2023 Erythrocyte distribution width (RBC) [Entitic vol] 41.9 fL 35.1-43.9 [facility] Erythrocyte distribution width (RBC) [Ratio] 13.7 % 11.6-14.6 [facility] MCH (RBC) [Entitic mass] 26.6 pg 27.0-32.0 [facility] MCHC Auto (RBC) [Mass/Vol]on 07-29-2023 MCHC (RBC) [Mass/Vol] 31.9 g/dL 32-36 [facility] No Panel Informationon 07-29 Estimated GFR (MDRD) Amer 139 mL/min >60 [facility] Comment on above: GFR Calc Estimated GFR (MDRD) Non-Af Amer 115 mL/min >60 [facility] Comment on above: Non- GFR Calc Thyroid Stimulating Hormone (TSH) 1.28 uIU/mL 0.358-3.74 [facility] Total Iron Binding Capacity 374 ug/dL 250-450 [facility] Comment on above: Moderate Hemolysis, Result may be falsely increased. Vitamin D 25-Hydroxy 26.2 ng/mL [facility] Comment on above: Vitamin D 25(OH) Sta tus Range Deficiency <20 ng/mL (50nmol/L) Insufficiency 20 - 30 ng/mL (50 - 75 nmol/L) Sufficiency 30 - 100 ng/mL (75 - 250 nmol/L) Toxicity >100 ng/mL (>250 nmol/L) Platelets bldon 07-29-2023 Platelets (Bld) [#/Vol] 83 10*3/uL 150-450 [facility] Serum or plasma albumin reyes urement (mass/volume)on 07-29-2023 Albumin [Mass/Vol] 3.6 g/dL 3.2-5.0 [facility] Serum or plasma albumin/glob ulin mass ratioon 07-29-2023 Albumin/Globulin [Mass ratio] 1.1 {ratio} 0.9-2.4 [facility] Serum or plasma calcium reyes urement (mass/volume)on 07-29-2023 Calcium [Mass/Vol] 8.4 mg/dL 8.5-10.1 [facility] Serum or plasma creatinine m easurement (mass/volume)on 07-29-2023 Creatinine [Mass/Vol] 0.66 mg/dL 0.55-1.02 [facility] Comment on above: The validity of the calculated GFR & GFRAA in patients over 70 years has not been determined. Clinical correlation is essential. Serum or plasma urea nitroge n measurement (mass/volume)on 07-29-2023 Urea nitrogen [Mass/Vol] 10 mg/dL 7-18 [facility] Thin prep Papanicolaou smear with manual screeningon 07-29-2023 Thin prep Papanicolaou smear with manual screening 27 U/L 15- [facility] Comment on above: Slight Hemolysis, Re sult may be falsely increased. Thin prep Papanicolaou smear with manual screening 5 5-15 [facility] Whole blood hemoglobin A1c/t otal hemoglobin ratio (mass fraction)on 07-29-2023 HbA1c (Bld) [Mass fraction] 4.9 % 3.8-5.6 [facility] Comment on above: Normal < 5.7 % Predi abetic 5.7 - 6.4 % Diabetic >or= 6.5 % Please note range changes. CNOVon 11-02-2021 CNOV Office Visit (OBGYWM ) -------- RAFICHERYL Brittney ([id number]) 1995 F Date Time Provider Department 11/02/21 11:30 AM LULÚ NICOLE OBGYWM During your visit today, we recorded the following information about you: Blood pressure Weight 124/78 116.6 kg Lulú Nicole MD 11/02/2021 11:42 AM Signed DATE OF SERVICE: 11/02/2021 PROBLEM: Cheryl Squires presents for postop visit. SURGERY AND DATE: 10/26/21 bilateral salpingectomy and Lilletta IUD insertion PATHOLOGY: benign tubes SUBJECTIVE/INTERVAL HISTORY: Cheryl Squires reports that she feels well. No fever or chills. No shortness of breath, cough, or chest pain. No incisional redness, swelling, or drainage. Patient reports that her appetite is good. BM and urination are normal. Some spotting. OBJECTIVE: ABDOMEN: Abdomen soft, non-tender, no hepatosplenomegaly. Incisions healing well. ASSESSMENT: postop tubal, doing well w/ Lilleta PLAN: 1. Discussed results of pathology and implications with patient. 2. Postop restrictions reviewed. Lulú Nicole MD Referring Provider: LULÚ NICOLE [[id number]] Allergies As of Date: 11/02/2021 Noted Allergy Reaction POLYVITE-FLUORIDE 01/02/2013 4 - Hives SEASONAL ALLERGIES 01/02/2013 5 - Intolerance Comments: Sinus/Irritation with seasonal allergies Date Reviewed: 11/02/2021 Reviewed by: Lulú Nicole MD - Fully Assessed Reason for Visit: Post Op [174] Primary Visit Diagnosis:Postop check [Z09] Prescriptions as of 11/02/2021 - ibuprofen (MOTRIN) 600 mg tablet - FLUoxetine 10 mg tablet Take 1 Tablet By Oral Route 1 time per day - levonorgestrel (LILETTA) 20.1 mcg/24 hrs (6 yrs) 52 mg IUD 1 Each by INTRAUTERINE route as directed. - loratadine (CLARITIN ORAL) Take by mouth as needed. - Cgvoldcj-Xv-Fda-Fe-FA ( VITAMIN) tab Take 1 tablet by mouth. Problem List As Of Date 11/02/2021 Noted Resolved Irregular menstrual cycle [N92.6] 01/02/2013 11/04/2020 Dysmenorrhea [N94.6] 01/02/2013 11/04/2020 Iron deficiency [E61.1] 08/31/2013 History of depression [Z87.59, Z86.5*10/25/2020 10/17/2021 History of miscarriage [Z87.59] 10/25/2020 06/04/2021 History of ITP [Z86.2] 10/25/2020 10/17/2021 Supervision of high risk in third tri*11/29/2020 10/17/2021 Obesity in [O99.210] 11/29/2020 10/17/2021 Rh negative status during in third tr*12/01/2020 06/08/2021 Partial placenta previa [O44.20] 12/15/2020 12/19/2020 Chronic ITP (idiopathic thrombocytopenia) ([facility])*12/18/2016 Elevated glucose tolerance test [R73.09] 03/23/2021 06/08/2021 Encounter for elective induction of labor [Z34.*06/06/2021 06/08/2021 Indication for care in labor or delivery [O75.9]06/06/2021 10/17/2021 BMI 50.0-59.9, adult ([facility]) [Z68.43] 06/06/2021 10/17/2021 Obesity, Class III, BMI >= 40 [E66.01] 10/17/2021 Encounter Status:Closed by LULÚ NICOLE on 11/02/21 [facility] CNOPon 10-26-2021 CNOP Operative Note (Enc) (OBGYWM) -------- Encounter Status:Closed by LULÚ NICOLE on 10/30/21 [facility] CNOVon 10-17-2021 CNOV Office Visit (OBGYWM ) -------- CHERYL SQUIRES ([id number]) 1995 F Date Time Provider Department 10/17/21 11:30 AM LULÚ NICOLE OBGEOFFREY During your visit today, we recorded the following information about you: Pulse Respiration Blood pressure Weight 140/minute 18/minute 112/70 117.9 kg Height 1.575 m Lulú Nicole MD 10/17/2021 1:09 PM Signed Pre-Op History and Physical HPI: The patient is a 26 year old female presenting for pre-operative visit. She is scheduled for laparoscopic bilateral salpingectomy, for sterilization on 10/26/2021. Procedure discussed along with risks, benefits and complications. Other alternatives discussed for management. Consent form signed? Yes. PAST MEDICAL HISTORY Diagnosis Date - Anemia - Blood dyscrasia - Chlamydia 2016 - History of immune thrombocytopenia - Miscarriage - depression PAST SURGICAL HISTORY Procedure Laterality Date - NONE Current Outpatient Medications Medication Sig Dispense Refill - medroxyPROGESTERone (DEPO-PROVERA) 150 mg/mL Inject 1 mL intramuscularly every 12 weeks. INJECT IM EVERY 12 WEEKS. 1 mL 3 - loratadine (CLARITIN ORAL) Take by mouth as needed. - pyridoxine, vitamin B6, (VITAMIN B-6) 50 mg tablet Take 1 tablet by mouth twice daily. - Msgnpnws-Fx-Cya-Fe-FA ( VITAMIN) tab Take 1 tablet by mouth. - ferrous sulfate 324 mg (65 mg iron) TbEC Take 1 tablet by mouth once daily. 0 Current Facility-Administered Medications Medication Dose Route Frequency Provider Last Rate Last Admin - medroxyPROGESTERone 150 mg injection (DEPO-PROVERA) 150 mg INTRAMUSCULAR every 12 weeks Lulú Nicole MD 150 mg at 07/27/21 1017 ALLERGIES: Polyvite-Fluoride and Seasonal Allergies PERSONAL HISTORY: Social History Tobacco Use - Smoking status: Never Smoker - Smokeless tobacco: Never Used Substance Use Topics - Alcohol use: No - Drug use: No FAMILY HISTORY: FAMILY HISTORY Problem Relation Age of Onset - Hypertension Mother - Hypertension Father - Lipids Father - Diabetes Father - other (Other) Father sleep apnea - Heart Maternal Grandmother heart attack/stroke - Lipids Maternal Grandmother - Hypertension Maternal Grandfather - Lipids Maternal Grandfather - Diabetes Paternal Grandmother - Heart Paternal Grandfather - No Known Problems Son REVIEW OF SYMPTOMS: GENERAL: denies fevers or chills ENDOCRINOLOGY: has not been on steroids Cardiology : denies palpitations or chest pain Respiratory: denies SOB or cough Hematology: denies history of prolonged bleeding or easy bruising or VTE Allergy: Denies history of personal or family history of allergy to anesthesia PHYSICAL EXAMINATION: VITALS: Last menstrual period 09/06/2020, not currently . GENERAL: The patient is well nourished, well hydrated in no acute distress. , The patient is oriented to time, place, and person. NECK: Supple. No lynphadenopathy, normal thyroid, no thyromegaly. LUNGS: Clear to auscultation bilaterally. no wheezes, rhonchi or rales HEART: Regular rate and rhythm, Normal heart sounds and No murmurs or gallops IMPRESSION: Sterilization request PLAN: The risks/benefits/alternati ves and personal involved for the planned laparoscopic bilateral salpingectomy were reviewed with the patient. Her questions were answered to her satisfaction and she desires to proceed. Consent was signed. I reviewed with her postop instructions and expectations. I have reviewed and updated past medical and surgical history, medications and allergies Lulú Nicole M.D. Shannan Mae RN 10/17/2021 1:09 PM Signed Patient identified by name and date of . Cheryl Squires is here for a Depo Provera injection. Patient brought medication. Date last injected: 07/27/21 Depo-Provera, 150 mg, administered IM right upper quadrant gluteus, Lot # [id number], expiration date 02/2023. Depo-Provera was given without incident. Date of last menses: Patient's last menstrual period was 09/06/2020 (exact date). [email or web address]. pdf Provider Dr. Nicole was present in office at time of injection. Shannan Nicole MD 10/17/2021 1:09 PM Signed Cheryl Squires is a 26 year old female who presents for problem visit for contraception discussion. Desires to have IUD for mesntrual control but wants to have sterilization. OB History T2 L2 SAB1 IAB0 Ectopic0 Multiple0 Live Births2 Rn Staff History LMP: 09/06/2020 (Exact Date), Postmenopausal Age at Menarche: Age at First : Age at Menopause: Rn Staff History Comments: Sexual Activity: Not Currently; No partner data on record Contraception: No contraception data on record PAST MEDICAL HISTORY Diagnosis Date - Anemia - Blood dyscrasia - Chlamydia 2016 - History of i (more content not included)... Normal [facility] HISTORY PHYSICALon HISTORY PHYSICAL HNO ID: [id number] Author: Lulú Nicole MD Service: ? Author Type: Physician Type: HANDP Filed: 10/17/2021 1:09 PM Note Text: Pre-Op History and Physical HPI: The patient is a 26 year old female presenting for pre-operative visit. She is scheduled for laparoscopic bilateral salpingectomy, for sterilization on 10/26/2021. Procedure discussed along with risks, benefits and complications. Other alternatives discussed for management. Consent form signed? Yes. PAST MEDICAL HISTORY Diagnosis Date - Anemia - Blood dyscrasia - Chlamydia 2016 - History of immune thrombocytopenia - Miscarriage - depression PAST SURGICAL HISTORY Procedure Laterality Date - NONE Current Outpatient Medications Medication Sig Dispense Refill - medroxyPROGESTERone (DEPO-PROVERA) 150 mg/mL Inject 1 mL intramuscularly every 12 weeks. INJECT IM EVERY 12 WEEKS. 1 mL 3 - loratadine (CLARITIN ORAL) Take by mouth as needed. - pyridoxine, vitamin B6, (VITAMIN B-6) 50 mg tablet Take 1 tablet by mouth twice daily. - Gwvtxfxw-Gw-Naz-Fe-FA ( VITAMIN) tab Take 1 tablet by mouth. - ferrous sulfate 324 mg (65 mg iron) TbEC Take 1 tablet by mouth once daily. 0 Current Facility-Administered Medications Medication Dose Route Frequency Provider Last Rate Last Admin - medroxyPROGESTERone 150 mg injection (DEPO-PROVERA) 150 mg INTRAMUSCULAR every 12 weeks Lulú Nicole MD 150 mg at 07/27/21 1017 ALLERGIES: Polyvite-Fluoride and Seasonal Allergies PERSONAL HISTORY: Social History Tobacco Use - Smoking status: Never Smoker - Smokeless tobacco: Never Used Substance Use Topics - Alcohol use: No - Drug use: No FAMILY HISTORY: FAMILY HISTORY Problem Relation Age of Onset - Hypertension Mother - Hypertension Father - Lipids Father - Diabetes Father - other (Other) Father sleep apnea - Heart Maternal Grandmother heart attack/stroke - Lipids Maternal Grandmother - Hypertension Maternal Grandfather - Lipids Maternal Grandfather - Diabetes Paternal Grandmother - Heart Paternal Grandfather - No Known Problems Son REVIEW OF SYMPTOMS: GENERAL: denies fevers or chills ENDOCRINOLOGY: has not been on steroids Cardiology : denies palpitations or chest pain Respiratory: denies SOB or cough Hematology: denies history of prolonged bleeding or easy bruising or VTE Allergy: Denies history of personal or family history of allergy to anesthesia PHYSICAL EXAMINATION: VITALS: Last menstrual period 09/06/2020, not currently . GENERAL: The patient is well nourished, well hydrated in no acute distress. , The patient is oriented to time, place, and person. NECK: Supple. No lynphadenopathy, normal thyroid, no thyromegaly. LUNGS: Clear to auscultation bilaterally. no wheezes, rhonchi or rales HEART: Regular rate and rhythm, Normal heart sounds and No murmurs or gallops IMPRESSION: Sterilization request PLAN: The risks/benefits/alternati ves and personal involved for the planned laparoscopic bilateral salpingectomy were reviewed with the patient. Her questions were answered to her satisfaction and she desires to proceed. Consent was signed. I reviewed with her postop instructions and expectations. I have reviewed and updated past medical and surgical history, medications and allergies Lulú Nicole M.D. [facility] Nurse Visit (OBGYWM) -------- CHERYL SQUIRES ([id number]) 1995 F Date Time Provider Department 07/27/21 10:00 AM NURSE TECHNOLOGY RECRUITER [facility] OBGYWM During your visit today, we recorded the following information about you: Blood pressure Weight 98/72 116.6 kg Jodee Raya RN 07/27/2021 10:19 AM Signed Patient identified by name and date of . Cheryl Squires is here for a Depo Provera injection. Patient brought medication. Date last injected: first injection - negative test. Depo-Provera, 150 mg, administered IM left upper quadrant gluteus, Lot # [id number], expiration date 11/13/2022. Depo-Provera was given without incident. Date of last menses: Patient's last menstrual period was 09/06/2020 (exact date). Irregular bleeding - No Menses ceased - Yes STD prevention discussed: Yes Patient instructed to return to clinic in 12 weeks +/- 5 days. [email or web address]. pdf Provider Carito James MD was present in office at time of injection. Jodee Raya RN 07/27/2021 10:12 AM Signed DEPO-PROVERA control is a way for men and women to prevent . There are many different methods of control; some types also protect against sexually transmitted diseases. Depo-Provera is a control method for women. It is made up of a hormone similar to progesterone and is given as a shot into the woman's arm or buttocks. Each shot provides protection against for up to 14 weeks, but the shot must be received once every 3 months. Depo-Provera does not protect against sexually transmitted diseases. Where can I get Depo-Provera? You must receive the shot from a doctor. The shot is usually given within five days of the beginning of your menstrual period. How is Depo-Provera used? Once the shot has been given, no additional steps are needed to prevent . With Depo-Provera, you must receive another shot once every three months to remain fully protected. How soon does it work? Protection begins immediately after the first shot if given during a menstrual period. How effective is Depo-Provera? Depo-Provera is 99% effective in preventing . Can any woman use Depo-Provera? Most women can use Depo-Provera. However, it is not recommended for women who have: Unexplained vaginal bleeding Liver disease Breast cancer Blood clots Are there side effects associated with Depo-Provera? Depo-Provera can cause a number of side effects, including: Irregular menstrual periods, or no periods at all Headaches Nervousness Depression Dizziness Acne Changes in appetite Weight gain Excessive growth of facial and body hair Hair loss You should discuss the potential side effects of Depo-Provera with your doctor. Most of the side effects are not common. Change in the menstrual cycle is the most common side effect. You may experience irregular bleeding or spotting. After a year of use, about 50% of women will stop getting their periods. Their periods usually return when they discontinue the shots. Can I become after I stop using Depo-Provera? With Depo-Provera, you could become as soon as 12 to 14 weeks after your last shot. It may take some women up to a year or two to conceive after they stop using this type of control. Does Depo-Provera protect against sexually transmitted diseases? No. To help protect yourself from STDs, use a male condom each time you and your partner have sex. What are the advantages of using Depo-Provera? You don't have to remember to take it every day or use it before sex. It provides long-term protection as long as you get the shot every three months. It doesn't interfere with sexual activity. It's over 99% effective. It's less expensive than the Pill. What are the disadvantages of using Depo-Provera? It can cause unwanted side effects. It does not provide protection against sexually transmitted diseases. It can cause irregular menstrual periods. You need to stop taking Depo-Provera several months ahead of time if you plan to become . Regular doctor visits can be inconvenient. ? Copyright 9438-5468 The [facility]. All rights reserved This information is provided by the [facility] and is not intended to replace the medical advice of your doctor or health care provider. Please consult your health care provider for advice about a specific medical condition. For additional written health information, please contact the Health Information Center at the [facility] or toll-free extension [phone]. This document was last reviewed on: 2004 Referring Provider: SELF [200] Allergies As of Date: 07/27/2021 Noted Allergy Reaction POLYVITE-FLUORIDE 01/02/2013 4 - Hi (more content not included)... Normal [facility] CBCon 07-26-2021 Absolute nRBC <0.01 Normal <0.01 [facility] Erythrocyte distribution width (RBC) [Ratio] 14.6 % Normal 11.5-15.0 [facility] Hematocrit (Bld) [Volume fraction] 32.0 % Low 36.0-46.0 [facility] Hemoglobin (Bld) [Mass/Vol] 9.9 g/dL Low 11.5-15.5 [facility] MCH 23.2 pG Low 26.0-34.0 [facility] MCHC (RBC) [Mass/Vol] 30.9 g/dL Normal 30.5-36.0 [facility] MCV (RBC) [Entitic vol] 74.9 fL Low 80.0-100.0 [facility] MPV <> Normal 9.0-12.7 [facility] Platelets (Bld) [#/Vol] 95 10*3/uL Low 150-400 [facility] Comment on above: Result Comment: No c lot detected. RBC (Bld) [#/Vol] 4.27 10*6/uL Normal 3.90-5.20 [facility] WBC (Bld) [#/Vol] 8.58 10*3/uL Normal 3.70-11.00 [facility] CNPNon 07-26-2021 CNPN Telephone (OBGYWM) -------- CHERYL SQUIRES ([id number]) 1995 F Date Time Provider Department 07/26/21 LULÚ NICOLE OBGYWNorman During your visit today, we recorded the following information about you: Rae Magaña RN 07/26/2021 4:19 PM Signed Patient called in and wanted appointment tomorrow for Depoprovera. Picked up RX at pharmacy. Please fileCAM order Lulú Nicole MD 07/26/2021 4:24 PM Signed thank you. Lulú Nicole MD Allergies As of Date: 07/26/2021 Noted Allergy Reaction POLYVITE-FLUORIDE 01/02/2013 4 - Hives SEASONAL ALLERGIES 01/02/2013 5 - Intolerance Comments: Sinus/Irritation with seasonal allergies Date Reviewed: 06/09/2021 Reviewed by: Leela Meyer RN - Fully Assessed Reason for Visit: Orders [681] Primary Visit Diagnosis: care and examination [Z39.2] Order(s):medroxyPROGESTE Jcarlos 150 mg injection (DEPO-PROVERA)Disp: Rfl: Prescriptions as of 07/26/2021 - medroxyPROGESTERone (DEPO-PROVERA) 150 mg/mL Inject 1 mL intramuscularly every 12 weeks. INJECT IM EVERY 12 WEEKS. - loratadine (CLARITIN ORAL) Take by mouth as needed. - pyridoxine, vitamin B6, (VITAMIN B-6) 50 mg tablet Take 1 tablet by mouth twice daily. - Aljulexo-Ov-Gux-Fe-FA ( VITAMIN) tab Take 1 tablet by mouth. - ferrous sulfate 324 mg (65 mg iron) TbEC Take 1 tablet by mouth once daily. Facility-Administered Medications as of 07/26/2021 - medroxyPROGESTERone 150 mg injection (DEPO-PROVERA) Problem List As Of Date 07/26/2021 Noted Resolved Irregular menstrual cycle [N92.6] 01/02/2013 11/04/2020 Dysmenorrhea [N94.6] 01/02/2013 11/04/2020 Iron deficiency [E61.1] 08/31/2013 History of depression [Z87.59, Z86.5*10/25/2020 History of miscarriage [Z87.59] 10/25/2020 06/04/2021 History of ITP [Z86.2] 10/25/2020 Supervision of high risk in third tri*11/29/2020 Obesity in [O99.210] 11/29/2020 Rh negative status during in third tr*12/01/2020 06/08/2021 Partial placenta previa [O44.20] 12/15/2020 12/19/2020 Chronic ITP (idiopathic thrombocytopenia) (HCC)*12/18/2016 Elevated glucose tolerance test [R73.09] 03/23/2021 06/08/2021 Encounter for elective induction of labor [Z34.*06/06/2021 06/08/2021 Indication for care in labor or delivery [O75.9]06/06/2021 BMI 50.0-59.9, adult (HCC) [Z68.43] 06/06/2021 Prescriptions ordered this encounter Disp Refills Start End MEDROXYPROGESTERONE 150 MG/ML INTRAM* 07/26/2021 06/27/2022 Route: INTRAMUSCULA Encounter Status:Closed by JAYNE MINER RN on 07/26/21 Normal [facility] CBC panel Auto (Bld)on 06-08 Erythrocyte distribution width (RBC) [Ratio] 15.4 % High 11.5-15.0 [facility] Comment on above: Order Comment: Speci men Type: BLOOD SPECIMEN Performed By: #### 5 8410-2 #### [facility] CLIA [id number] [address] Hematocrit (Bld) [Volume fraction] 24.8 % Low 36.0-46.0 [facility] Comment on above: Order Comment: Speci men Type: BLOOD SPECIMEN Performed By: #### 5 8410-2 #### [facility] CLIA [id number] [address] OF [facility] Hemoglobin (Bld) [Mass/Vol] 8.0 g/dL Low 11.5-15.5 [facility] Comment on above: Order Comment: Speci men Type: BLOOD SPECIMEN Performed By: #### 5 8410-2 #### [facility] CLIA [id number] [address] MCH (RBC) [Entitic mass] 27.4 pg Normal 26.0-34.0 [facility] Comment on above: Order Comment: Speci men Type: BLOOD SPECIMEN Performed By: #### 5 8410-2 #### [facility] CLIA [id number] [address] MCHC (RBC) [Mass/Vol] 32.3 g/dL Normal 30.5-36.0 [facility] Comment on above: Order Comment: Speci men Type: BLOOD SPECIMEN Performed By: #### 5 8410-2 #### [facility] CLIA [id number] [address] MCV (RBC) [Entitic vol] 84.9 fL Normal 80.0-100.0 [facility] Comment on above: Order Comment: Speci men Type: BLOOD SPECIMEN Performed By: #### 5 8410-2 #### [facility] CLIA [id number] [address] Nucleated RBC (Bld) [#/Vol] 10*3/uL Normal <0.01 [facility] Comment on above: Order Comment: Speci men Type: BLOOD SPECIMEN Performed By: #### 5 8410-2 #### [facility] CLIA [id number] [address] Platelet mean volume (Bld) [Entitic vol] Normal [facility] Comment on above: Order Comment: Speci men Type: BLOOD SPECIMEN Result Comment: Unab le to Report. Performed By: #### 5 8410-2 #### [facility] CLIA [id number] [address] Platelets (Bld) [#/Vol] 75 10*3/uL Low 150-400 [facility] Comment on above: Order Comment: Speci men Type: BLOOD SPECIMEN Performed By: #### 5 8410-2 #### [facility] CLIA [id number] [address] RBC (Bld) [#/Vol] 2.92 10*6/uL Low 3.90-5.20 [facility] Comment on above: Order Comment: Speci men Type: BLOOD SPECIMEN Performed By: #### 5 8410-2 #### [facility] CLIA [id number] [address] WBC (Bld) [#/Vol] 11.27 10*3/uL High 3.70-11.00 [facility] Comment on above: Order Comment: Speci men Type: BLOOD SPECIMEN Performed By: #### 5 8410-2 #### [facility] CLIA [id number] [address] [facility] CNDSon 06-08-2021 CNDS HNO ID: [id number] Author: Constantino Taylor DO Service: Maternal Medicine Author Type: Physician Type: Discharge Summary Filed: 06/09/2021 10:07 PM Note Text: DISCHARGE SUMMARY OBSTETRICS PATIENT NAME: Cheryl Squires ADMISSION DATE: 06/06/2021 DISCHARGE DATE: 06/09/2021 Attending Physician: Constantino Taylor DO Code Status: Not on file Treatment Team: Attending Provider: Constantino Taylor DO Maternal Obstetric Provider: Carito James Reason for Hospitalization: Intrauterine . Active Problems: Iron deficiency POA: Yes History of depression POA: Yes Chronic ITP (idiopathic thrombocytopenia) (HCC) POA: Yes BMI 50.0-59.9, adult (HCC) POA: Unknown Resolved Problems: Rh negative status during in third trimester POA: Yes Elevated glucose tolerance test POA: Yes Encounter for elective induction of labor POA: Unknown PROCEDURES/SURGERY DURING HOSPITALIZATION: Delivery Summary: Britney Squires [[id number]] Delivery Information: Delivery Date: 06/07/21 Delivery type: Vaginal, Spontaneous Delivering Clinician: Hever Peña DO Vacuum Used: No Forceps Used: No Shoulder Dystocia Present: No Lacerations: None Episiotomy: None [place]: Gender: Female Weight (grams): 3682 g One Minute : 6 Five Minute : 9 Procedures (if applicable) Hospital Course: 26 year old female who is Day #2 from delivery as noted above. Pt's peripartum course was complicated by PPH. She received TXA and multiple uterotonics. HCT and platelets stable on day of discharge. D/C home in stable condition on PPD#2. Consulting Teams During Hospitalization: Anesthesiology: Patient Condition @ Discharge: Good Discharge Disposition: Home/Self Care Specific Concerns for Follow-up Post Discharge: Routine Care, Anemia and bleeding precautions Information Provided to Patient: Activity When You Leave the Hospital Drive as tolerated after a vaginal delivery. Make sure you are able to respond to adverse traffic conditions: Make sure you are not too sore to stop or turn quickly Gradually increase your activity level until back to normal at approximately 6 weeks post- (Walking and stairs as tolerated) May use stairs No baths for 6 weeks to allow the cervix to close (this includes swimming pools and hot tubs) No lifting greater than 15 pounds for six weeks No walking restrictions Shower Daily Six Weeks Pelvic Rest - This means no sex, tampons, douching or any items in your vagina Diet Instructions Resume your pre-hospital diet Wound/Surgical Site Care Use aminta/squirt bottle to rinse your perineal area with warm water after urination or bowel movements Use aminta/squirt bottle to rinse your perineal area with warm water until vaginal bleeding/drainage ceases You may spot bleed for up to six week post- Discharge Medications: Discharge Medication List as of 06/09/2021 1:14 PM CONTINUE these medications which have NOT CHANGED loratadine (CLARITIN ORAL) Take by mouth as needed. Historical Med pyridoxine, vitamin B6, (VITAMIN B-6) 50 mg tablet Take 1 tablet by mouth twice daily. Med Update, Long-term Vjuxnwto-Eh-Kzb-Fe-FA ( VITAMIN) tab Take 1 tablet by mouth. Historical Med, Long-term ferrous sulfate 324 mg (65 mg iron) TbEC Take 1 tablet by mouth once daily. Med Update, R-0 ALLERGIES Allergen Reactions - Polyvite-Fluoride Hives - Seasonal Allergies Intolerance Sinus/Irritation with seasonal allergies Future Appointments: Follow Up Appointments Follow-Up Appointment With: Primary OB Provider When: In 6 weeks Patient/Parents to call for appointment?: Yes TIME OF CARE: Discharge Management: I personally spent greater than 30 minutes involved in the discharge management of this patient. Plan of care discussed with: Patient and RN. SIGNATURE: Constantino Taylor DO DATE: June 09, 2021 TIME: 1:33 PM Normal [facility] ANES POSTPROC EVALon 021 ANES POSTPROC EVAL HNO ID: [id number] Author: Zayda Dwyer APRN.CIGAR HEAD HOLER Service: Anesthesiology Author Type: Nurse Research Test Engine Operator Type: Anesthesia Postprocedure Evaluation Filed: 06/07/2021 8:57 AM Note Text: -------- Attestation signed by Dre Maurice MD at 06/12/2021 8:33 AM . -------- POST ANESTHESIA EVALUATION NOTE : 1995 Procedure Summary Date: 06/06/21 Room / Location: Anesthesia Start: Anesthesia Stop: Procedure: LABOR ANALGESIA Diagnosis: Scheduled Providers: Responsible Provider: Anesthesia Type: Not recorded ASA Status: Not recorded Anesthesia Type: No value filed. Last vitals Vitals Value Taken Time BP 116/75 06/07/21 0755 Temp 37.2 ?C (99 ?F) 06/07/21 075 Pulse 101 06/07/21754 Resp 17 06/07/21 0755 SpO2 98 % 06/07/21754 Rafi, Girl Cheryl Lugo [[id number]] Baby Delivery: 06/07/2021 0118 Post Anesthesia Patient Status Patient Evaluation: floor. Neurological Status: aware and responsive. Pain Management: clinically adequate Post Operative Nausea/Vomiting Status: no significant post operative nausea or vomiting Anesthetic Observations: Recommendation: continue current plan of care. No complications documented. SIGNATURE: Zayda Dwyer APRN.CRNA PATIENT NAME: Cheryl Squires DATE: June 07, 2021 TIME: 8:56 AM CSN: [id number] Normal [facility] BLOOD GASES CORD ARTERIALon 06-07-2021 BASE DEFICIT CORD ARTERIAL -3.5 mmol/L Normal -7-0 [facility] Comment on above: Performed By: #### G ASCA #### [facility] CLIA [id number] [address] STATES OF [facility] BICARBONATE CORD ARTERIAL 24.9 mmol/L Normal 21-29 [facility] Comment on above: Performed By: #### G ASCA #### [facility] CLIA [id number] [address] OF [place] PCO2 CORD ARTERIAL 59 mmHg Normal 34-78 [facility] Comment on above: Performed By: #### G ASCA #### [facility] CLIA [id number] [address] [place] PH CORD ARTERIAL 7.25 Normal 7.14-7.42 [facility] Comment on above: Performed By: #### G ASCA #### [facility] CLIA [id number] [address] [place] PO2 CORD ARTERIAL <31 Normal 3-40 [facility] Comment on above: Performed By: #### G ASCA #### [facility] CLIA [id number] [address] [place] BLOOD GASES CORD VENOUSon BASE DEFICIT CORD VENOUS -5.2 mmol/L Normal -6-0 [facility] Comment on above: Performed By: #### G ASCV #### [facility] CLIA [id number] [address] OF [facility] BICARBONATE, CORD VENOUS 19.4 mmol/L Low 20-28 [facility] Comment on above: Performed By: #### G ASCV #### [facility] CLIA [id number] [address] [place] PCO2 CORD VENOUS 37 mmHg Normal 30-63 [facility] Comment on above: Performed By: #### G ASCV #### [facility] CLIA [id number] [address] [place] PH CORD VENOUS 7.34 Normal 7.22-7.44 [facility] Comment on above: Performed By: #### G ASCV #### [facility] CLIA [id number] [address] [place] PO2 CORD VENOUS 34.4 mmHg Normal 12-43 [facility] Comment on above: Performed By: #### G ASCV #### [facility] CLIA [id number] [address] CBC panel Auto (Bld)on 06-07 Erythrocyte distribution width (RBC) [Ratio] 15.4 % High 11.5-15.0 [facility] Comment on above: Order Comment: Speci men Type: BLOOD SPECIMEN Performed By: #### 5 8410-2 #### [facility] CLIA [id number] [address] Hematocrit (Bld) [Volume fraction] 31.9 % Low 36.0-46.0 [facility] Comment on above: Order Comment: Speci men Type: BLOOD SPECIMEN Performed By: #### 5 8410-2 #### [facility] CLIA [id number] [address] Hemoglobin (Bld) [Mass/Vol] 10.3 g/dL Low 11.5-15.5 [facility] Comment on above: Order Comment: Speci men Type: BLOOD SPECIMEN Performed By: #### 5 8410-2 #### [facility] CLIA [id number] [address] MCH (RBC) [Entitic mass] 27.0 pg Normal 26.0-34.0 [facility] Comment on above: Order Comment: Speci men Type: BLOOD SPECIMEN Performed By: #### 5 8410-2 #### [facility] CLIA [id number] [address] MCHC (RBC) [Mass/Vol] 32.3 g/dL Normal 30.5-36.0 [facility] Comment on above: Order Comment: Speci men Type: BLOOD SPECIMEN Performed By: #### 5 8410-2 #### [facility] CLIA [id number] [address] MCV (RBC) [Entitic vol] 83.7 fL Normal 80.0-100.0 [facility] Comment on above: Order Comment: Speci men Type: BLOOD SPECIMEN Performed By: #### 5 8410-2 #### [facility] CLIA [id number] [address] Nucleated RBC (Bld) [#/Vol] 10*3/uL Normal <0.01 [facility] Comment on above: Order Comment: Speci men Type: BLOOD SPECIMEN Performed By: #### 5 8410-2 #### [facility] CLIA [id number] [address] Platelet mean volume (Bld) [Entitic vol] Normal [facility] Comment on above: Order Comment: Speci men Type: BLOOD SPECIMEN Result Comment: Unab le to Report. Performed By: #### 5 8410-2 #### [facility] CLIA [id number] [address] Platelets (Bld) [#/Vol] 80 10*3/uL Low 150-400 [facility] Comment on above: Order Comment: Speci men Type: BLOOD SPECIMEN Performed By: #### 5 8410-2 #### [facility] CLIA [id number] [address] RBC (Bld) [#/Vol] 3.81 10*6/uL Low 3.90-5.20 [facility] Comment on above: Order Comment: Speci men Type: BLOOD SPECIMEN Performed By: #### 5 8410-2 #### [facility] CLIA [id number] [address] WBC (Bld) [#/Vol] 22.37 10*3/uL High 3.70-11.00 [facility] Comment on above: Order Comment: Speci men Type: BLOOD SPECIMEN Performed By: #### 5 8410-2 #### [facility] CLIA [id number] [address] Fibrinogen PPP-mCncon 2020 Fibrinogen Coag (PPP) [Mass/Vol] 412 mg/dL High 200-400 [facility] Comment on above: Order Comment: Speci men Type: BLOOD SPECIMEN Performed By: #### 3 255-7 #### [facility] CLIA [id number] [address] [place] [address] [place] LD NOTEon 06-07-2021 LD NOTE HNO ID: [id number] Author: Elana Addison DO Service: Obstetrics Author Type: Resident Type: LANDD Delivery Note Filed: 06/07/2021 2:27 AM Note Text: -------- Attestation signed by Hever Peña DO at 06/07/2021 6:40 AM Attestation: I was present for the critical and jarquin portions of the surgery and I was immediately available to provide assistance. Signature: Hever Peña DO -------- OBSTETRICS DELIVERY SUMMARY - VAGINAL DELIVERY Gestational Age at Delivery: 39w1d Service Date: 06/07/2021 Service Time: 2:05 AM Labor Events Rupture Date: 06/06/2021 Rupture Time: 9:45 PM Total Time from ROM to Delivery: rupture date, rupture time, delivery date, or delivery time have not been documented Rupture Type: AROM Total Hours from ROM to Onset of Labor hours Fluid Color: Clear Fluid Odor: No Odor Induction: Yes Induction Method: Cervical Ripening Balloon (CRB);Misoprostol;Oxytoc in;AROM Britney Squires [[id number]] Episiotomy/Laceration: Episiotomy: None Lacerations: None Date and Time of : Date of : 06/06/21 Time of : 0118 Delivery Information: Primary Reason for Delivery : Elective Induction Additional Clinicial Indicator(s) for delivery: N/A (Comment: ITP) Delivery type: Vaginal, Spontaneous Intrapartum Complications: Other Excessive Bleeding Additional Complications: hemorrhage Delivery between 24 - 34 weeks?: No Presentation: Vertex Shoulder Dystocia Present: No Vacuum Used: No Forceps Used: No Presentation AND Position Presentation: Vertex Position: OA Cord: Complications: Nuchal with Compression Nuchal Cord Findings: x 1, Loose Delayed Cord Clamping: Less than 30 sec Placenta: Delivered: 06/07/2021 1:29 AM Removal: Spontaneous Appearance: Intact Anesthesia: Method: None Measurements, Apgars: Weight: 8 lb 1.9 oz Weight (gms): 3682 g One Minute : 6 Five Minute : 9 Code [place] Called: No I/O Blood Loss per time range on right. 06/05/21 1318 - 06/06/21 0318 None Clinical Course: ? Cheryl Squires is a 26 year old year old female who presented to [facility] with Estimated Date of Delivery: 06/13/21 at 39w1d for induction of labor that was risk reducing in the setting of ITP. Her course was complicated by ITP in which her platelets were 63 on admission. She had previously received a one week course of steroids in April that did not alter her platelets levels. She was offered a hematology consult with intentions of IVIG or platelet transfusion prior to induction in order to have the option of an epidural, but the patient declined and decided to go naturally. Her was otherwise complicated by morbid obesity (BMI 50), history of PPH in her last , RH negative blood type, and an abnormal 1hr GCT but normal 3hr GTT. The patient was GBS negative. ? Labor Course: ? At the time of presentation the patient was found to be 2cm dilated, 60% effaced, and at -2 station. She had a cytotec and ren balloon placed for induction. She was transitioned to pitocin. Amniotomy was performed for clear fluid. She was extremely uncomfortable following amniotomy. She made change from 7cm to 8cm within 1 hour. She then progressed quickly to 9.5cm within 30 minutes. The patient was the laying back for an exam. progressed to complete cervical dilation and +3 station. She precipitously delivered with 1-2 pushes. ? As the vertex was , the patient was placed in the dorsal lithotomy position in the bed. The vertex delivered over an intact perineum from the occiput anterior position which restituted to the maternal left. After delivery of the head, a loose nuchal cord with compression was reduced. Then, the anterior and posterior shoulders were then delivered without difficulty followed by the remainder of the 's body. The infant was crying spontaneously. The infant initially was crying spontaneously and delayed cord clamping was attempted, but then the became less active and the cord was doubly clamped and cut. The infant was passed to the bed warmer for stimulation. The placenta delivered spontaneously. pitocin was then started and bolused. Fundal massage was constantly performed. Uterine tone improved, but active bleeding remained present. Abrasion were present but not actively bleeding. The cervix was examined and no cervical lacerations were present. Cytotec was immediately available and 600mcg was administered bucally while Methergine, Hemabate and TXA were obtained. The Methergine was administered at 0135 and TXA was started immediately following. Bedside ultrasound was performed and demonstrated blood at the fundus but no signs of retained products. The patient voided (more content not included)... Normal [facility] POST-DELIVERY RH IGGon 06-07 ABO AB Normal [facility] Comment on above: Order Comment: Speci men Type: BLOOD SPECIMEN Performed By: #### P OSDEL ####[facility] [id number] [address] SCREEN Negative Normal [facility] Comment on above: Order Comment: Speci men Type: BLOOD SPECIMEN Result Comment: Kit Lot Number and Expiration Date: [id number] 06/23/2021 Performed By: #### P OSDEL ####[facility] [id number] [address] KB REFLEX No Normal [facility] Comment on above: Order Comment: Speci men Type: BLOOD SPECIMEN Performed By: #### P OSDEL ####[facility]IA [id number] [address] Rh Nom (Bld) Negative Normal [facility] Comment on above: Order Comment: Speci men Type: BLOOD SPECIMEN Performed By: #### P OSDEL ####[facility] [id number] [address] CBC panel Auto (Bld)on 06-06 Erythrocyte distribution width (RBC) [Ratio] 15.4 % High 11.5-15.0 [facility] Comment on above: Order Comment: Speci men Type: BLOOD SPECIMEN Performed By: #### 5 8410-2 #### [facility] CLIA [id number] [address] Hematocrit (Bld) [Volume fraction] 31.1 % Low 36.0-46.0 [facility] Comment on above: Order Comment: Speci men Type: BLOOD SPECIMEN Performed By: #### 5 8410-2 #### [facility] CLIA [id number] [address] [place] [address] Hemoglobin (Bld) [Mass/Vol] 10.2 g/dL Low 11.5-15.5 [facility] Comment on above: Order Comment: Speci men Type: BLOOD SPECIMEN Performed By: #### 5 8410-2 #### [facility] CLIA [id number] [address] MCH (RBC) [Entitic mass] 26.8 pg Normal 26.0-34.0 [facility] Comment on above: Order Comment: Speci men Type: BLOOD SPECIMEN Performed By: #### 5 8410-2 #### [facility] CLIA [id number] [address] MCHC (RBC) [Mass/Vol] 32.8 g/dL Normal 30.5-36.0 [facility] Comment on above: Order Comment: Speci men Type: BLOOD SPECIMEN Performed By: #### 5 8410-2 #### [facility] CLIA [id number] [address] MCV (RBC) [Entitic vol] 81.8 fL Normal 80.0-100.0 [facility] Comment on above: Order Comment: Speci men Type: BLOOD SPECIMEN Performed By: #### 5 8410-2 #### [facility] CLIA [id number] [address] Nucleated RBC (Bld) [#/Vol] 10*3/uL Normal <0.01 [facility] Comment on above: Order Comment: Speci men Type: BLOOD SPECIMEN Performed By: #### 5 8410-2 #### [facility] CLIA [id number] [address] Platelet mean volume (Bld) [Entitic vol] Normal [facility] Comment on above: Order Comment: Speci men Type: BLOOD SPECIMEN Result Comment: Unab le to Report. Performed By: #### 5 8410-2 #### [facility] CLIA [id number] [address] Platelets (Bld) [#/Vol] 65 10*3/uL Low 150-400 [facility] Comment on above: Order Comment: Speci men Type: BLOOD SPECIMEN Performed By: #### 5 8410-2 #### [facility] CLIA [id number] [address] RBC (Bld) [#/Vol] 3.80 10*6/uL Low 3.90-5.20 [facility] Comment on above: Order Comment: Speci men Type: BLOOD SPECIMEN Performed By: #### 5 8410-2 #### [facility] CLIA [id number] [address] WBC (Bld) [#/Vol] 10.62 10*3/uL Normal 3.70-11.00 [facility] Comment on above: Order Comment: Speci men Type: BLOOD SPECIMEN Performed By: #### 5 8410-2 #### [facility] CLIA [id number] [address] Comprehensive metabolic 2000 panelon 06-06-2021 Albumin [Mass/Vol] 3.5 g/dL Low 3.9-4.9 [facility] Comment on above: Order Comment: Speci men Type: BLOOD SPECIMEN Performed By: #### 2 4323-8 #### [facility] CLIA [id number] [address] ALP [Catalytic activity/Vol] 164 U/L High 34-123 [facility] Comment on above: Order Comment: Speci men Type: BLOOD SPECIMEN Performed By: #### 2 4323-8 #### [facility] CLIA [id number] [address] ALT With P-5'-P [Catalytic activity/Vol] 9 U/L Normal 7-38 [facility] Comment on above: Order Comment: Speci men Type: BLOOD SPECIMEN Performed By: #### 2 4323-8 #### [facility] CLIA [id number] [address] Anion gap [Moles/Vol] 13 mmol/L Normal 9-18 [facility] Comment on above: Order Comment: Speci men Type: BLOOD SPECIMEN Performed By: #### 2 4323-8 #### [facility] CLIA [id number] [address] AST With P-5'-P [Catalytic activity/Vol] 15 U/L Normal 13-35 [facility] Comment on above: Order Comment: Speci men Type: BLOOD SPECIMEN Performed By: #### 2 4323-8 #### [facility] CLIA [id number] [address] Bilirubin [Mass/Vol] 0.3 mg/dL Normal 0.2-1.3 [facility] Comment on above: Order Comment: Speci men Type: BLOOD SPECIMEN Performed By: #### 2 4323-8 #### [facility] CLIA [id number] [address] Calcium [Mass/Vol] 8.5 mg/dL Normal 8.5-10.2 [facility] Comment on above: Order Comment: Speci men Type: BLOOD SPECIMEN Performed By: #### 2 4323-8 #### [facility] CLIA [id number] [address] Chloride [Moles/Vol] 103 mmol/L Normal 97-105 [facility] Comment on above: Order Comment: Speci men Type: BLOOD SPECIMEN Performed By: #### 2 4323-8 #### [facility] CLIA [id number] [address] [place] CO2 [Moles/Vol] 18 mmol/L Low 22-30 [facility] Comment on above: Order Comment: Speci men Type: BLOOD SPECIMEN Performed By: #### 2 4323-8 #### [facility] CLIA [id number] [address] OF [facility] Creatinine [Mass/Vol] 0.57 mg/dL Low 0.58-0.96 [facility] Comment on above: Order Comment: Speci men Type: BLOOD SPECIMEN Performed By: #### 2 4323-8 #### [facility] CLIA [id number] [address] GFR/1.73 sq M.predicted MDRD (S/P/Bld) [Vol rate/Area] mL/min/{1.73_m2} Normal [facility] Comment on above: Order Comment: Speci men Type: BLOOD SPECIMEN Result Comment: >60 eGFR (Estimated GFR) Units of measure: mL/min/1.73 meters squared eGFR is derived from the reexpressed MDRD Study equation using the following parameters: serum creatinine, age, gender and race. The creatinine assay has been calibrated to be traceable to IDMS. An eGFR <60 mL/min/1.73m2 for >3 months is consistent with chronic kidney disease. Refer to KDOQI guidelines for clinical interpretation. In patients with unstable renal function, e.g. those with acute kidney injury, the eGFR may not accurately reflect actual GFR. Performed By: #### 2 4323-8 #### [facility] CLIA [id number] [address] [place] [facility] Glucose [Mass/Vol] 89 mg/dL Normal 74-99 [facility] Comment on above: Order Comment: Speci men Type: BLOOD SPECIMEN Result Comment: The [place] Diabetes [employer] (ADA) provides guidance for cutoff values for fasting glucose and random glucose. The ADA defines fasting as no caloric intake for at least 8 hours. Fasting plasma glucose results between 100 to 125 mg/dL indicate increased risk for diabetes (prediabetes). Fasting plasma glucose results greater than or equal to 126 mg/dL meet the criteria for diagnosis of diabetes. In the absence of unequivocal hyperglycemia, results should be confirmed by repeat testing. In a patient with classic symptoms of hyperglycemia or hyperglycemic crisis, random plasma glucose results greater than or equal to 200 mg/dL meet the criteria for diagnosis of diabetes. Reference: Standards of Medical Care in Diabetes 2016, [place] [employer]. Diabetes Care. 2016.39(Suppl 1). Performed By: #### 2 4323-8 #### [facility] CLIA [id number] [address] [place] [facility] Potassium [Moles/Vol] 3.6 mmol/L Low 3.7-5.1 [facility] Comment on above: Order Comment: Speci men Type: BLOOD SPECIMEN Performed By: #### 2 4323-8 #### [facility] CLIA [id number] [address] [place] [facility] Protein [Mass/Vol] 6.5 g/dL Normal 6.3-8.0 [facility] Comment on above: Order Comment: Speci men Type: BLOOD SPECIMEN Performed By: #### 2 4323-8 #### [facility] CLIA [id number] [address] [place] Sodium [Moles/Vol] 134 mmol/L Low 136-144 [facility] Comment on above: Order Comment: Speci men Type: BLOOD SPECIMEN Performed By: #### 2 4323-8 #### [facility] CLIA [id number] [address] [place] [facility] Urea nitrogen [Mass/Vol] 5 mg/dL Low 7-21 [facility] Comment on above: Order Comment: Speci men Type: BLOOD SPECIMEN Performed By: #### 2 4323-8 #### [facility] CLIA [id number] [address] OF [facility] HISTORY PHYSICALon HISTORY PHYSICAL HNO ID: [id number] Author: Valentin Soria DO Service: Obstetrics Author Type: Resident Type: HANDP Filed: 06/06/2021 9:34 AM Note Text: -------- Attestation signed by Constantino Taylor DO at 06/06/2021 9:23 PM MFM Attending Note I saw and evaluated the patient. I agree with the resident's findings and plan of care as documented below. 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 Followed by Dr. Neri at [facility]. Last platelet count 72 which was a minimal increase after steroid therapy. Declines IVIG and understands regional anesthesia will not be an option. Repeat CBC today. Anesthesia consult. [facility] to cover delivery. All of her questions were answered. Constantino Taylor DO, [facility] -------- OBSTETRICS HISTORY AND PHYSICAL SERVICE DATE: June 06, 2021 SERVICE TIME: 8:38 AM Subjective Patient's stated reason for arrival: induction of labor CHIEF COMPLAINT: Induction of Labor HISTORY OF THE PRESENT ILLNESS: The patient is a 26 year old female, , who is at 39w0d with an DAMIAN of 06/13/2021, by Last Menstrual Period dating method. Patient is here for elective induction. Good movement. Denies vaginal bleeding, Denies contractions, Denies leaking of fluid. Denies Tobacco, Alcohol and Substance abuse Denies HIV, Hep B/C, HSV and MRSA POST DELIVERY CONTRACEPTION: Discussed post-delivery contraception options. Patient received written information about post-delivery contraception options. Patient desires post-delivery contraception: 6 weeks post chosen, consent needed. HISTORY REVIEW PAST MEDICAL HISTORY Diagnosis Date - Anemia - Blood dyscrasia - Chlamydia 2016 - History of immune thrombocytopenia - Miscarriage - depression PAST SURGICAL HISTORY Procedure Laterality Date - NONE FAMILY HISTORY Problem Relation Age of Onset - Hypertension Mother - Hypertension Father - Lipids Father - Diabetes Father - other (Other) Father sleep apnea - Heart Maternal Grandmother heart attack/stroke - Lipids Maternal Grandmother - Hypertension Maternal Grandfather - Lipids Maternal Grandfather - Diabetes Paternal Grandmother - Heart Paternal Grandfather - No Known Problems Son Social History Tobacco Use - Smoking status: Never Smoker - Smokeless tobacco: Never Used Substance Use Topics - Alcohol use: No - Drug use: No Obstetric History T1 L1 SAB1 TAB0 Ectopic0 Multiple0 Live Births1 Name of Baby 1: Juan Date: 11/03/16 GA: 39w0d Delivery: Vaginal, Spontaneous Apgar1: Not recorded Apgar5: Not recorded Living: Living Name of Baby 2: Not recorded Date: 01/2020 GA: 6w0d Delivery: Not recorded Apgar1: Not recorded Apgar5: Not recorded Living: Not recorded Name of Baby 3: Not recorded Date: Not recorded GA: Not recorded Delivery: Not recorded Apgar1: Not recorded Apgar5: Not recorded Living: Not recorded Active Non-Hospital Problems Diagnosis Date Noted - Indication for care in labor or delivery 06/06/2021 - Supervision of high risk in third trimester 11/29/2020 - Obesity in 11/29/2020 Overview Note: - History of ITP 10/25/2020 ALLERGIES Allergen Reactions - Polyvite-Fluoride Hives - Seasonal Allergies Intolerance Sinus/Irritation with seasonal allergies Prior to Admission Medications Prescriptions Last Dose Informant Patient Reported? Taking? Tslpmlxh-An-Juh-Fe-FA ( VITAMIN) tab 06/05/2021 at Unknown time Yes Yes Sig: Take 1 tablet by mouth. ferrous sulfate 324 mg (65 mg iron) [facility] 06/05/2021 at Unknown time No Yes Sig: Take 1 tablet by mouth once daily. loratadine (CLARITIN ORAL) Unknown at Unknown time Yes Yes Sig: Take by mouth as needed. pyridoxine, vitamin B6, (VITAMIN B-6) 50 mg tablet Unknown at Unknown time No No Sig: Take 1 tablet by mouth twice daily. Patient not taking: Reported on 05/30/2021 Facility-Administered Medications: None REVIEW OF SYSTEMS: The remainder of the review of systems is negative. Objective LAST VITALS: Pulse BP Resp O2 Sat Temp Pain 107 121/75 96 % 0 HT/WT/BMI: Height Weight BMI PHYSICAL EXAM: General: WD, WN, obese, comfortable HEENT: NC/AT, sclera white, pupils equal Lungs: normal respiratory effort Heart: RR Abdomen: soft, nontender Uterus: soft, NT Extremities: tr edema FHT: 155 bpm (06/06/21899 : Reny Vences RN) bpm CERVICAL EXAM: Dilation: 2 (06/06/21928 : Valentin Soria DO) cm Station: -2 (06/06/21928 : Valentin Soria DO) Effacement: 60 (06/06/21928 : Valentin Soria DO) % Position: Cephalic Presentation: Vertex (06/06/21928 : Valentin Soria DO) Pelvimetry: Pelvimetry clinically assessed as adequate MONITORING/ASSESSMENT: 140/Moderate variability/Acceleration s present/No de (more content not included)... Normal [facility] TYPE + SCREEN PRENATALon ABO AB Normal [facility] Comment on above: Order Comment: Speci men Type: BLOOD SPECIMEN Performed By: #### T SPN ####[facility] [id number] [address] HISTORICAL AB SCR STATUS Negative Normal [facility] Comment on above: Order Comment: Speci men Type: BLOOD SPECIMEN Performed By: #### T SPN ####[facility] [id number] [address] [place] Rh Nom (Bld) Negative Normal [facility] Comment on above: Order Comment: Speci men Type: BLOOD SPECIMEN Performed By: #### T SPN ####[facility] [id number] [place] [address] [facility] TYPE AND SCREEN EXPIRATION 06/09/2021 23:59 Normal [facility] Comment on above: Order Comment: Speci men Type: BLOOD SPECIMEN Performed By: #### T SPN ####[facility] [id number] [place] [address] [facility] PreOp/PreProc COVIDon 2020 SARS-CoV-2 (COVID-19) RNA CRUZ+probe Ql (Unsp spec) UPPER RESPIRATORY TRACT SWAB Normal [facility] Comment on above: Performed By: #### P OCOVD ####[facility] [place], [place] [phone] SARS-CoV-2 (COVID-19) RNA CRUZ+probe Ql (Unsp spec) Negative for COVID19 (SARS CoV2) by RT-PCR or equivalent method. Normal Negative for COVID19 (SARS CoV2) by RT-PCR or equivalent method. [facility] Comment on above: Result Comment: This test was developed and its performance characteristics determined by [facility] [place]. This test has been authorized by FDA under an Emergency Use Authorization (EUA). This test has been validated in accordance with the FDA's Guidance Document Policy for Diagnostics Testing in Laboratories Certified to Perform High Complexity Testing under CLIA prior to Emergency use Authorization for Coronavirus Disease 2019 during the Public Health Emergency issued on November 14, 2019. Test performed by [facility], [facility] [place], [address], [place] [address]. Performed By: #### P OCOVD ####[facility] [id number] [place], [place] [phone] [facility] ([facility] -------- RAFICHERYL ([id number]) 1995 F Date Time Provider Department 06/02/21 CONSTANTINO TAYLOR During your visit today, we recorded the following information about you: Carie Turner RN 06/02/2021 9:26 AM Signed Covid order pended for pt's induction. Carie Turner RN Allergies As of Date: 06/02/2021 Noted Allergy Reaction POLYVITE-FLUORIDE 01/02/2013 4 - Hives SEASONAL ALLERGIES 01/02/2013 5 - Intolerance Comments: Sinus/Irritation with seasonal allergies Date Reviewed: 05/31/2021 Reviewed by: Lulú Nicole MD - Fully Assessed Reason for Visit: Lab Orders [1688] Primary Visit Diagnosis: care, subsequent , third trimester [Z34.83] Order(s):PRE-PROCEDURE AND PRE-OPERATIVE COVID [SQPOCOVD] Order #: [id number] FUTURE Prescriptions as of 06/02/2021 - loratadine (CLARITIN ORAL) Take by mouth as needed. - pyridoxine, vitamin B6, (VITAMIN B-6) 50 mg tablet Take 1 tablet by mouth twice daily. - Xjnchrgy-Ks-Esp-Fe-FA ( VITAMIN) tab Take 1 tablet by mouth. - ferrous sulfate 324 mg (65 mg iron) TbEC Take 1 tablet by mouth once daily. Problem List As Of Date 06/02/2021 Noted Resolved Irregular menstrual cycle [N92.6] 01/02/2013 11/04/2020 Dysmenorrhea [N94.6] 01/02/2013 11/04/2020 Iron deficiency [E61.1] 08/31/2013 History of depression [Z87.59, Z86.5*10/25/2020 History of miscarriage [Z87.59] 10/25/2020 History of ITP [Z86.2] 10/25/2020 Supervision of high risk in first tri*11/29/2020 Obesity in [O99.210] 11/29/2020 Rh negative status during in first tr*12/01/2020 Partial placenta previa [O44.20] 12/15/2020 12/19/2020 Chronic ITP (idiopathic thrombocytopenia) (HCC)*12/18/2016 Elevated glucose tolerance test [R73.09] 03/23/2021 Encounter Status:Closed by CONSTANTINO TAYLOR on 06/02/21 Normal [facility] CBCon 05-23-2021 Absolute nRBC <0.01 Normal <0.01 [facility] Erythrocyte distribution width (RBC) [Ratio] 14.6 % Normal 11.5-15.0 [facility] Hematocrit (Bld) [Volume fraction] 33.1 % Low 36.0-46.0 [facility] Hemoglobin (Bld) [Mass/Vol] 11.1 g/dL Low 11.5-15.5 [facility] MCH 27.2 pG Normal 26.0-34.0 [facility] MCHC (RBC) [Mass/Vol] 33.5 g/dL Normal 30.5-36.0 [facility] MCV (RBC) [Entitic vol] 81.1 fL Normal 80.0-100.0 [facility] MPV <> Normal 9.0-12.7 [facility] Platelets (Bld) [#/Vol] 72 10*3/uL Low 150-400 [facility] Comment on above: Result Comment: No c lot detected. RBC (Bld) [#/Vol] 4.08 10*6/uL Normal 3.90-5.20 [facility] WBC (Bld) [#/Vol] 13.79 10*3/uL High 3.70-11.00 [facility] GROUP B STREP PCRon 05-23-20 GROUP B STREP PCR Negative Normal [facility] Comment on above: Performed By: #### G BPCR ####[facility] [id number] [place], [place] [phone] CBC and Differentialon 05-09 Abs Baso 0.03 k/uL Normal <0.11 [facility] Abs Haralson 0.84 k/uL Normal <0.87 [facility] Abs Neut 11.50 k/uL High 1.45-7.50 [facility] Absolute nRBC <0.01 Normal <0.01 [facility] Basophils/100 WBC (Bld) 0.2 % Normal [facility] DTYPE Auto Diff Normal [facility] Eosinophils (Bld) [#/Vol] 0.13 10*3/uL Normal <0.46 [facility] Eosinophils/100 WBC (Bld) 0.9 % Normal [facility] Erythrocyte distribution width (RBC) [Ratio] 14.3 % Normal 11.5-15.0 [facility] Hematocrit (Bld) [Volume fraction] 32.3 % Low 36.0-46.0 [facility] Hemoglobin (Bld) [Mass/Vol] 11.0 g/dL Low 11.5-15.5 [facility] Lymphocytes (Bld) [#/Vol] 1.42 10*3/uL Normal 1.00-4.00 [facility] Lymphocytes/100 WBC (Bld) 10.2 % Normal [facility] MCH 27.9 pG Normal 26.0-34.0 [facility] MCHC (RBC) [Mass/Vol] 34.1 g/dL Normal 30.5-36.0 [facility] MCV (RBC) [Entitic vol] 82.0 fL Normal 80.0-100.0 [facility] Monocytes/100 WBC (Bld) 6.0 % Normal [facility] MPV <> Normal 9.0-12.7 [facility] Neutrophils/100 WBC (Bld) 82.7 % Normal [facility] NRBCs 0.0 /100 WBC Normal 0 [facility] Platelets (Bld) [#/Vol] 65 10*3/uL Low 150-400 [facility] Comment on above: Result Comment: No c lot detected. RBC (Bld) [#/Vol] 3.94 10*6/uL Normal 3.90-5.20 [facility] WBC (Bld) [#/Vol] 13.92 10*3/uL High 3.70-11.00 [facility] 100g, 3hr gest. OGTTon 04-05 Glucose [Mass/Vol] 91 mg/dL Normal 74-94 [facility] Comment on above: Result Comment: [facility] Congress of Obstetricians and Gynecologists (Franco/Rachaelstan) guidelines state gestational diabetes mellitus is present when 2 or more of the plasma glucose concentrations meet or exceed the following levels: fastin mg/dl, 1 hr: 180 mg/dl, 2 hr: 155 mg/dl, and 3 hr: 140 mg/dl. Performed By: #### S YPHTX, GLTGST #### [email or web address] [address] [address] Glucose [Mass/Vol] 161 mg/dL Normal 74-179 [facility] Comment on above: Result Comment: [facility] Congress of Obstetricians and Gynecologists (Franco/Coustan) guidelines state gestational diabetes mellitus is present when 2 or more of the plasma glucose concentrations meet or exceed the following levels: fastin mg/dl, 1 hr: 180 mg/dl, 2 hr: 155 mg/dl, and 3 hr: 140 mg/dl. Performed By: #### S YPHTX, GLTGST #### [email or web address] [address] [address] Glucose [Mass/Vol] 121 mg/dL Normal 74-154 [facility] Comment on above: Result Comment: [facility] Congress of Obstetricians and Gynecologists (Franco/Coustan) guidelines state gestational diabetes mellitus is present when 2 or more of the plasma glucose concentrations meet or exceed the following levels: fastin mg/dl, 1 hr: 180 mg/dl, 2 hr: 155 mg/dl, and 3 hr: 140 mg/dl. Performed By: #### S YPHTX, GLTGST #### [facility] [address] [address] Glucose [Mass/Vol] 85 mg/dL Normal 74-139 [facility] Comment on above: Result Comment: [facility] Congress of Obstetricians and Gynecologists (Franco/Coustan) guidelines state gestational diabetes mellitus is present when 2 or more of the plasma glucose concentrations meet or exceed the following levels: fastin mg/dl, 1 hr: 180 mg/dl, 2 hr: 155 mg/dl, and 3 hr: 140 mg/dl. Performed By: #### S YPHTX, GLTGST #### [facility] [address] [place], [place] [address] [facility] Tele[facility] (OB[facility]WM[facility] -------- CHERYL SQUIRES ([id number]) 1995 F Date Time Provider Department 03/29/21 RHODA RAJPUT During your visit today, we recorded the following information about you: Lyubov De Jesus LPN 03/29/2021 8:36 AM Signed ----- Message from Rhoda Noonan MD sent at 03/29/2021 8:11 AM EDT ----- Need repeat growth in 4 weeks. Results reviewed. Please Place copy and OB chart Lyubov De Jesus LPN 03/29/2021 8:37 AM Signed Left message to call office Jayne Miner RN 03/29/2021 9:19 AM Signed Patient notified. Ultrasound appointment given. Jayne Miner RN Allergies As of Date: 03/29/2021 Noted Allergy Reaction POLYVITE-FLUORIDE 01/02/2013 4 - Hives SEASONAL ALLERGIES 01/02/2013 5 - Intolerance Comments: Sinus/Irritation with seasonal allergies Date Reviewed: 02/20/2021 Reviewed by: Lulú Nicole MD - Fully Assessed Reason for Visit: Results [95] Prescriptions as of 03/29/2021 - dexAMETHasone (DECADRON) 4 mg tablet Take 3 tablets by mouth daily with breakfast. - pyridoxine, vitamin B6, (VITAMIN B-6) 50 mg tablet Take 1 tablet by mouth twice daily. - Yowcgrup-Me-Yjw-Fe-FA ( VITAMIN) tab Take 1 tablet by mouth. - ferrous sulfate 324 mg (65 mg iron) TbEC Take 1 tablet by mouth once daily. - DIPHENHYDRAMINE HCL (ALLERGY MEDICATION ORAL) Take by mouth. Problem List As Of Date 03/29/2021 Noted Resolved Irregular menstrual cycle [N92.6] 01/02/2013 11/04/2020 Dysmenorrhea [N94.6] 01/02/2013 11/04/2020 Iron deficiency [E61.1] 08/31/2013 History of depression [Z87.59, Z86.5*10/25/2020 History of miscarriage [Z87.59] 10/25/2020 History of ITP [Z86.2] 10/25/2020 Supervision of high risk in first tri*11/29/2020 Obesity in [O99.210] 11/29/2020 Rh negative status during in first tr*12/01/2020 Partial placenta previa [O44.20] 12/15/2020 12/19/2020 Chronic ITP (idiopathic thrombocytopenia) (HCC)*12/18/2016 Elevated glucose tolerance test [R73.09] 03/23/2021 Encounter Status:Closed by JAYNE MINER RN on 03/29/[address] [facility] Telephone (OBGYWM) -------- CHERYL SQUIRES ([id number]) 1995 F Date Time Provider Department 03/28/21 RHODA RAJPUT During your visit today, we recorded the following information about you: Rae Magaña RN 03/28/2021 9:40 AM Signed Patient seeing Dr Kramer today. Please file order for ultrasound Rhoda Bowens MD 03/28/2021 9:48 AM Signed ordered Doris Rincon LPN 03/28/2021 9:49 AM Signed Noted. Doris Rincon LPN Allergies As of Date: 03/28/2021 Noted Allergy Reaction POLYVITE-FLUORIDE 01/02/2013 4 - Hives SEASONAL ALLERGIES 01/02/2013 5 - Intolerance Comments: Sinus/Irritation with seasonal allergies Date Reviewed: 02/20/2021 Reviewed by: Lulú Nicole MD - Fully Assessed Reason for Visit: Orders [681] Primary Visit Diagnosis:Idiopathic thrombocytopenia (HCC) [D69.3] Other Visit Diagnosis:Supervision of high risk in third trimester [O09.93] Order(s):OBSTETRIC ULTRASOUND [facility] [[id number]] Order #: [id number]: 1 Prescriptions as of 03/28/2021 - dexAMETHasone (DECADRON) 4 mg tablet Take 3 tablets by mouth daily with breakfast. - pyridoxine, vitamin B6, (VITAMIN B-6) 50 mg tablet Take 1 tablet by mouth twice daily. - Aocgjouw-Ni-Slq-Fe-FA ( VITAMIN) tab Take 1 tablet by mouth. - ferrous sulfate 324 mg (65 mg iron) TbEC Take 1 tablet by mouth once daily. - DIPHENHYDRAMINE HCL (ALLERGY MEDICATION ORAL) Take by mouth. Problem List As Of Date 03/28/2021 Noted Resolved Irregular menstrual cycle [N92.6] 01/02/2013 11/04/2020 Dysmenorrhea [N94.6] 01/02/2013 11/04/2020 Iron deficiency [E61.1] 08/31/2013 History of depression [Z87.59, Z86.5*10/25/2020 History of miscarriage [Z87.59] 10/25/2020 History of ITP [Z86.2] 10/25/2020 Supervision of high risk in first tri*11/29/2020 Obesity in [O99.210] 11/29/2020 Rh negative status during in first tr*12/01/2020 Partial placenta previa [O44.20] 12/15/2020 12/19/2020 Chronic ITP (idiopathic thrombocytopenia) (HCC)*12/18/2016 Elevated glucose tolerance test [R73.09] 03/23/2021 Encounter Status:Closed by DORIS RINCON LPN on 03/28/21 Normal [facility] Differential ([facility] LAB USE ON LY)on 03-28-2021 Abs Baso 0.00 k/uL Normal <0.11 [facility] Comment on above: Performed By: #### D IFF #### [facility] [address] [phone] Abs Haralson 0.66 k/uL Normal <0.87 [facility] Comment on above: Performed By: #### D IFF #### [facility] [place] [phone] Abs Neut 17.39 k/uL High 1.45-7.50 [facility] Comment on above: Performed By: #### D IFF #### [facility] [address] [phone] Basophils/100 WBC (Bld) 0.0 % Normal [facility] Comment on above: Performed By: #### D IFF #### [facility] [address] [phone] DTYPE Manual Diff Normal [facility] Comment on above: Performed By: #### D IFF #### [facility] [phone] Eosinophils (Bld) [#/Vol] 0.15 10*3/uL Normal <0.46 [facility] Comment on above: Performed By: #### D IFF #### [facility] [address] [phone] Eosinophils/100 WBC (Bld) 0.8 % Normal [facility] Comment on above: Performed By: #### D IFF #### [facility] [address] [phone] Left Shift Present Normal [facility] Comment on above: Performed By: #### D IFF #### [facility] [address] [place], [place] [address] Lymphocytes (Bld) [#/Vol] 0.97 10*3/uL Low 1.00-4.00 [facility] Comment on above: Performed By: #### D IFF #### [facility] [address] [place], [place] [address] Lymphocytes/100 WBC (Bld) 5.0 % Normal [facility] Comment on above: Performed By: #### D IFF #### [facility] [address] [place], [place] [address] Metamyelocytes/100 WBC (Bld) 0.8 % Normal [facility] Comment on above: Performed By: #### D IFF #### [facility] [address] [place], [place] [address] Monocytes/100 WBC (Bld) 3.4 % Normal [facility] Comment on above: Performed By: #### D IFF #### [facility] [address] [place], [place] [address] Neutrophils/100 WBC (Bld) 90.0 % Normal [facility] Comment on above: Performed By: #### D IFF #### [facility] [address] [place], [place] [address] Ovalocytes Few Normal [facility] Comment on above: Performed By: #### D IFF #### [facility] [address] [place], [place] [address] Platelet Estimate Platelet estimate decreased Normal [facility] Comment on above: Performed By: #### D IFF #### [facility] [address] [place], [place] [address] Polychromasia Slight Normal [facility] Comment on above: Performed By: #### D IFF #### [facility] [address] [place], [place] [address] Jay 03-23-2021 CNPN Telephone (OBGYWM) -------- CHERYL SQUIRES ([id number]) 1995 F Date Time Provider Department 03/23/21 CARITO JAMES OBANGELOWNorman During your visit today, we recorded the following information about you: Jodee Raya RN 03/23/2021 11:41 AM Signed ----- Message from Carito James MD sent at 03/23/2021 11:20 AM EDT ----- Needs 3hr GTT Patient has known chronic ITP MD Jodee Devlin RN 03/23/2021 11:43 AM Signed Please file pended 3 hour GTT. Jodee James MD 03/23/2021 12:24 PM Signed Done MD Shannan Devlin RN 03/23/2021 1:13 PM Signed Released to [employer]. Shannan Mae RN 03/23/2021 1:19 PM Signed Patient viewed on [employer]. Shannan Mae RN Allergies As of Date: 03/23/2021 Noted Allergy Reaction POLYVITE-FLUORIDE 01/02/2013 4 - Hives SEASONAL ALLERGIES 01/02/2013 5 - Intolerance Comments: Sinus/Irritation with seasonal allergies Date Reviewed: 02/20/2021 Reviewed by: Lulú Nicole MD - Fully Assessed Reason for Visit: abnormal glucose [Other] Primary Visit Diagnosis:Abnormal glucose complicating [O99.810] Order(s):GEST GLUC HOMERO, 3-HR, 100 GM, FASTING [[id number]] Order #: [id number] FUTURE Prescriptions as of 03/23/2021 - dexAMETHasone (DECADRON) 4 mg tablet Take 3 tablets by mouth daily with breakfast. - pyridoxine, vitamin B6, (VITAMIN B-6) 50 mg tablet Take 1 tablet by mouth twice daily. - Tpvcudwo-Hx-Lgw-Fe-FA ( VITAMIN) tab Take 1 tablet by mouth. - ferrous sulfate 324 mg (65 mg iron) TbEC Take 1 tablet by mouth once daily. - DIPHENHYDRAMINE HCL (ALLERGY MEDICATION ORAL) Take by mouth. Problem List As Of Date 03/23/2021 Noted Resolved Irregular menstrual cycle [N92.6] 01/02/2013 11/04/2020 Dysmenorrhea [N94.6] 01/02/2013 11/04/2020 Iron deficiency [E61.1] 08/31/2013 History of depression [Z87.59, Z86.5*10/25/2020 History of miscarriage [Z87.59] 10/25/2020 History of ITP [Z86.2] 10/25/2020 Supervision of high risk in first tri*11/29/2020 Obesity in [O99.210] 11/29/2020 Rh negative status during in first tr*12/01/2020 Partial placenta previa [O44.20] 12/15/2020 12/19/2020 Chronic ITP (idiopathic thrombocytopenia) (HCC)*12/18/2016 Elevated glucose tolerance test [R73.09] 03/23/2021 Encounter Status:Closed by SHANNAN MAE RN on 03/23/21 Normal [facility] 50g, 1hr gest. [facility] Glucose [Mass/Vol] 144 mg/dL High 74-134 [facility] Comment on above: Result Comment: [facility] Congress of Obstetricians and Gynecologists (Salvador/Vilma) guidelines state a gestational diabetes mellitus positive screen is made, in women not previously diagnosed with overt diabetes, when the 1 hr plasma glucose level is equal to or above 140 mg/dL. The [facility] recommends a 135 mg/dL cutoff. Performed By: #### S YPHTX, GLTGST #### [facility] [address] [place], [place] [address] CBC and Differentialon 03-21 Abs Baso 0.04 k/uL Normal <0.11 [facility] Comment on above: Performed By: #### S YPHTX, GLTGST #### [facility] [address] [phone] Abs Haralson 0.56 k/uL Normal <0.87 [facility] Comment on above: Performed By: #### S YPHTX, GLTGST #### [place] [place] [address] [place] [phone] Abs Neut 12.16 k/uL High 1.45-7.50 [facility] Comment on above: Performed By: #### S YPHTX, GLTGST #### [address] [place] [phone] Absolute nRBC <0.01 Normal <0.01 [facility] Comment on above: Performed By: #### S YPHTX, GLTGST #### [address] [address] [place] [phone] Basophils/100 WBC (Bld) 0.3 % Normal [facility] Comment on above: Performed By: #### S YPHTX, GLTGST #### [place] [phone] DTYPE Auto Diff Normal [facility] Comment on above: Performed By: #### S YPHTX, GLTGST #### [address] [place] [phone] Eosinophils (Bld) [#/Vol] 0.13 10*3/uL Normal <0.46 [facility] Comment on above: Performed By: #### S YPHTX, GLTGST #### [place] [phone] Eosinophils/100 WBC (Bld) 0.9 % Normal [facility] Comment on above: Performed By: #### S YPHTX, GLTGST #### [address] [place] [address] [place] [phone] Erythrocyte distribution width (RBC) [Ratio] 13.7 % Normal 11.5-15.0 [facility] Comment on above: Performed By: #### S YPHTX GLTGST #### [facility] [address] [place], [place] [address] Hematocrit (Bld) [Volume fraction] 33.7 % Low 36.0-46.0 [facility] Comment on above: Performed By: #### S YPHTX GLTGST #### [facility] [address] [address] Hemoglobin (Bld) [Mass/Vol] 11.5 g/dL Normal 11.5-15.5 [facility] Comment on above: Performed By: #### S YPHTX GLTGST #### [address] [place] [address] [place] [address] Lymphocytes (Bld) [#/Vol] 1.41 10*3/uL Normal 1.00-4.00 [facility] Comment on above: Performed By: #### S YPHTX GLTGST #### [address] [address] [place] [address] Lymphocytes/100 WBC (Bld) 9.9 % Normal [facility] Comment on above: Performed By: #### S YPHTX GLTGST #### [facility] [address] [address] MCH 29.2 pG Normal 26.0-34.0 [facility] Comment on above: Performed By: #### S YPHTX, GLTGST #### [facility] [address] [address] MCHC (RBC) [Mass/Vol] 34.1 g/dL Normal 30.5-36.0 [facility] Comment on above: Performed By: #### S YPHTX GLTGST #### [facility] [address] [place], [place] [address] MCV (RBC) [Entitic vol] 85.5 fL Normal 80.0-100.0 [facility] Comment on above: Performed By: #### S YPHTX, GLTGST #### [facility] [address] [place], [place] [address] Monocytes/100 WBC (Bld) 3.9 % Normal [facility] Comment on above: Performed By: #### S YPHTX, GLTGST #### [address] [place], [place] [address] MPV <> Normal 9.0-12.7 [facility] Comment on above: Performed By: #### S YPHTX, GLTGST #### [address] [place], [place] [address] Neutrophils/100 WBC (Bld) 85.0 % Normal [facility] Comment on above: Performed By: #### S YPHTX, GLTGST #### [address] [place], [place] [address] NRBCs 0.0 /100 WBC Normal 0 [facility] Comment on above: Performed By: #### S YPHTX, GLTGST #### [address] [place], [place] [address] Platelets (Bld) [#/Vol] 60 10*3/uL Low 150-400 [facility] Comment on above: Result Comment: No c lot detected. Performed By: #### S YPHTX, GLTGST #### [facility] [address] [place], [place] [address] RBC (Bld) [#/Vol] 3.94 10*6/uL Normal 3.90-5.20 [facility] Comment on above: Performed By: #### S YPHTX, GLTGST #### [address] [place], [place] [address] WBC (Bld) [#/Vol] 14.30 10*3/uL High 3.70-11.00 [facility] Comment on above: Performed By: #### S YPHTX, GLTGST #### [address] [address] [place] [address] Syphilis Ttl w/Reflxon 03-21 Syphilis Interp Cannot exclude recen t Treponemal infection if specimen collected within 7 to 10 days after appearance of suspect lesions or 2 to 3 weeks after an exposure. Clinical correlation is required. Normal [facility] Comment on above: Performed By: #### S YPHTX GLTGST #### [place] [address] [place] [address] Syphilis Screen Rslt Non-Reactive Normal Non Reactive [facility] Comment on above: Performed By: #### S YPHTX GLTGST #### [place] [address] [place] [address] Type and Scr,Prenatlon 03-21 ABO/RH(D) Negative Normal [facility] Comment on above: Performed By: #### S YPHTX, GLTGST #### [place] [address] [place] [id number] CBC and Differentialon 03-01 Abs Baso 0.03 k/uL Normal <0.11 [facility] Abs Haralson 0.67 k/uL Normal <0.87 [facility] Abs Neut 12.70 k/uL High 1.45-7.50 [facility] Absolute nRBC <0.01 Normal <0.01 [facility] Basophils/100 WBC (Bld) 0.2 % Normal [facility] DTYPE Auto Diff Normal [facility] Eosinophils (Bld) [#/Vol] 0.15 10*3/uL Normal <0.46 [facility] Eosinophils/100 WBC (Bld) 1.0 % Normal [facility] Erythrocyte distribution width (RBC) [Ratio] 14.3 % Normal 11.5-15.0 [facility] Hematocrit (Bld) [Volume fraction] 34.7 % Low 36.0-46.0 [facility] Hemoglobin (Bld) [Mass/Vol] 12.0 g/dL Normal 11.5-15.5 [facility] Lymphocytes (Bld) [#/Vol] 1.75 10*3/uL Normal 1.00-4.00 [facility] Lymphocytes/100 WBC (Bld) 11.4 % Normal [facility] MCH 29.9 pG Normal 26.0-34.0 [facility] MCHC (RBC) [Mass/Vol] 34.6 g/dL Normal 30.5-36.0 [facility] MCV (RBC) [Entitic vol] 86.5 fL Normal 80.0-100.0 [facility] Monocytes/100 WBC (Bld) 4.4 % Normal [facility] MPV <> Normal 9.0-12.7 [facility] Neutrophils/100 WBC (Bld) 83.0 % Normal [facility] NRBCs 0.0 /100 WBC Normal 0 [facility] Platelets (Bld) [#/Vol] 60 10*3/uL Low 150-400 [facility] Comment on above: Result Comment: Resu lt checked and verified No clot detected. RBC (Bld) [#/Vol] 4.01 10*6/uL Normal 3.90-5.20 [facility] WBC (Bld) [#/Vol] 15.30 10*3/uL High 3.70-11.00 [facility] Jay 02-07-2021 CNPN Telephone [facility] -------- CHERYL SQUIRES ([id number]) 1995 F Date Time Provider Department 02/07/21 [facility] During your visit today, we recorded the following information about you: Yuridia Do RN 02/07/2021 11:04 AM Signed Spoke with Cheryl regarding scheduling follow-up growth ultrasound and hematology. Cheryl accepted appts. On 03/09 at 3:30 at [facility] Dr. Neri and 03/[address] Kramer in [place]. She has no other needs at this time. I encouraged her to call with questions. She is appreciative. Hina Do RN Allergies As of Date: 02/07/2021 Noted Allergy Reaction POLYVITE-FLUORIDE 01/02/2013 4 - Hives SEASONAL ALLERGIES 01/02/2013 5 - Intolerance Comments: Sinus/Irritation with seasonal allergies Date Reviewed: 01/26/2021 Reviewed by: Dian Muñiz APRN.CNM - Fully Assessed Reason for Visit: [employer] - Other [3603] Cmt: [facility] appointments Prescriptions as of 02/07/2021 Sig: PYRIDOXINE (VITAMIN B6) 50 MG* Take 1 tablet by mouth twice * VITAMIN TABLET Take 1 tablet by mouth. FERROUS SULFATE 324 MG (65 MG* Take 1 tablet by mouth once d* ALLERGY MEDICATION ORAL Take by mouth. Problem List As Of Date 02/07/2021 Noted Resolved Irregular menstrual cycle [N92.6] 01/02/2013 11/04/2020 Dysmenorrhea [N94.6] 01/02/2013 11/04/2020 Iron deficiency [E61.1] 08/31/2013 History of depression [Z87.59, Z86.5*10/25/2020 History of miscarriage [Z87.59] 10/25/2020 History of ITP [Z86.2] 10/25/2020 Supervision of high risk in first tri*11/29/2020 Obesity in [O99.210] 11/29/2020 Rh negative status during in first tr*12/01/2020 Partial placenta previa [O44.20] 12/15/2020 12/19/2020 Chronic ITP (idiopathic thrombocytopenia) (HCC)*12/18/2016 Encounter Status:Closed by YURIDIA DO on 02/07/21 Normal [facility] CBC and Differentialon 01-26 Abs Baso 0.04 k/uL Normal <0.11 [facility] Abs Haralson 0.63 k/uL Normal <0.87 [facility] Abs Neut 13.09 k/uL High 1.45-7.50 [facility] Absolute nRBC <0.01 Normal <0.01 [facility] Basophils/100 WBC (Bld) 0.3 % Normal [facility] DTYPE Auto Diff Normal [facility] Eosinophils (Bld) [#/Vol] 0.25 10*3/uL Normal <0.46 [facility] Eosinophils/100 WBC (Bld) 1.6 % Normal [facility] Erythrocyte distribution width (RBC) [Ratio] 14.6 % Normal 11.5-15.0 [facility] Hematocrit (Bld) [Volume fraction] 37.0 % Normal 36.0-46.0 [facility] Hemoglobin (Bld) [Mass/Vol] 12.9 g/dL Normal 11.5-15.5 [facility] Lymphocytes (Bld) [#/Vol] 1.88 10*3/uL Normal 1.00-4.00 [facility] Lymphocytes/100 WBC (Bld) 11.8 % Normal [facility] MCH 29.4 pG Normal 26.0-34.0 [facility] MCHC (RBC) [Mass/Vol] 34.9 g/dL Normal 30.5-36.0 [facility] MCV (RBC) [Entitic vol] 84.3 fL Normal 80.0-100.0 [facility] Monocytes/100 WBC (Bld) 4.0 % Normal [facility] MPV <> Normal 9.0-12.7 [facility] Neutrophils/100 WBC (Bld) 82.3 % Normal [facility] NRBCs 0.0 /100 WBC Normal 0 [facility] Platelets (Bld) [#/Vol] 70 10*3/uL Low 150-400 [facility] Comment on above: Result Comment: No c lot detected. RBC (Bld) [#/Vol] 4.39 10*6/uL Normal 3.90-5.20 [facility] WBC (Bld) [#/Vol] 15.89 10*3/uL High 3.70-11.00 [facility] Jay 01-20-2021 CNPN Telephone (OBMN) -------- RAFICHERYL Lugo ([id number]) 1995 F Date Time Provider Department 01/20/21 [facility] During your visit today, we recorded the following information about you: Yuridia Do RN 01/20/2021 1:15 PM Signed Left MSG on identified VM. Mentioned I am calling to assist with scheduling follow up with Dr. Neri from hematology. Recommended she be seen in 2mo- around [id number]. Provided number to call and schedule. Provided my contact information and encouraged her to call if she needs assistance with scheduling. 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 FERROUS SULFATE 324 MG (65 MG* Take 1 tablet by mouth once d* ALLERGY MEDICATION ORAL Take by mouth. Problem List As Of Date 01/20/2021 Noted Resolved Irregular menstrual cycle [N92.6] 01/02/2013 11/04/2020 Dysmenorrhea [N94.6] 01/02/2013 11/04/2020 Iron deficiency [E61.1] 08/31/2013 History of depression [Z87.59, Z86.5*10/25/2020 History of miscarriage [Z87.59] 10/25/2020 History of ITP [Z86.2] 10/25/2020 Supervision of high risk in first tri*11/29/2020 Obesity in [O99.210] 11/29/2020 Rh negative status during in first tr*12/01/2020 Partial placenta previa [O44.20] 12/15/2020 12/19/2020 Chronic ITP (idiopathic thrombocytopenia) (HCC)*12/18/2016 Encounter Status:Closed by YURIDIA DO on 01/20/21 Normal [facility] CBCon 12-27-2020 Absolute nRBC 10.26 k/uL High <0.01 [facility] Erythrocyte distribution width (RBC) [Ratio] 14.5 % Normal 11.5-15.0 [facility] Hematocrit (Bld) [Volume fraction] 36.7 % Normal 36.0-46.0 [facility] Hemoglobin (Bld) [Mass/Vol] 12.6 g/dL Normal 11.5-15.5 [facility] MCH 28.5 pG Normal 26.0-34.0 [facility] MCHC (RBC) [Mass/Vol] 34.3 g/dL Normal 30.5-36.0 [facility] MCV (RBC) [Entitic vol] 83.0 fL Normal 80.0-100.0 [facility] MPV <> Normal 9.0-12.7 [facility] Platelets (Bld) [#/Vol] 54 10*3/uL Low 150-400 [facility] Comment on above: Result Comment: Resu lt checked and verified No clot detected. RBC (Bld) [#/Vol] 4.42 10*6/uL Normal 3.90-5.20 [facility] WBC (Bld) [#/Vol] 12.88 10*3/uL High 3.70-11.00 [facility] CNPAnita 12-13-2020 GABIN [facility] -------- RAFICHERYL ([id number]) 1995 F Date Time Provider Department 12/13/20 [facility]IDIA DO (RN) [facility] During your visit today, we recorded the following information about you: Yuridia Do RN, RN 12/13/2020 1:41 PM Signed Call to Cheryl who is familiar with me. Mentioned I am following up to assist with Hematology consult. Cheryl tells me she is unsure if she can come to [place] for a consult D/T transportation concerns. Discussed I reached out to Dr. Neri's office and he is willing to see her for a virtual visit. They will reach out to her to schedule. Assisted Cheryl with signing up for [employer] and verified e-mail address. She has no further needs at this time. Invited her to call with questions or concerns. 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 FERROUS SULFATE 324 MG (65 MG* Take 1 tablet by mouth once d* ALLERGY MEDICATION ORAL Take by mouth. Problem List As Of Date 12/13/2020 Noted Resolved Irregular menstrual cycle [N92.6] 01/02/2013 11/04/2020 Dysmenorrhea [N94.6] 01/02/2013 11/04/2020 Iron deficiency [E61.1] 08/31/2013 History of depression [Z87.59, Z86.5*10/25/2020 History of miscarriage [Z87.59] 10/25/2020 History of ITP [Z86.2] 10/25/2020 Supervision of high risk in first tri*11/29/2020 Obesity in [O99.210] 11/29/2020 Rh negative status during in first tr*12/01/2020 Encounter Status:Closed by YURIDIA DO on 12/13/20 [facility] Telephone ([facility]MAM[facility]) -------- CHERYL SQUIRES ([id number]) 1995 F Date Time Provider Department 12/13/20 OMER NERI During your visit today, we recorded the following information about you: Guerda Mancilla Sec 12/13/2020 11:37 AM Signed Hina from Dr. Albert office is calling Omer Neri MD today regarding Request a Consult Patient has been identified by name and birthdate. Duration of symptoms: Requesting response back: Hina called stating that she called our office previously to assist with coordinating getting Pt a consult with Dr. Neri, and was following up on that request. I advised that I did not see a request, but would send her to our cancer answer department to get assistance with getting a consult scheduled, and information on any other documents that would be needed for this referral. Guerda Mancilla Sec December 13, 2020 Allergies As of Date: 12/13/2020 Noted Allergy Reaction POLYVITE-FLUORIDE 01/02/2013 4 - Hives SEASONAL ALLERGIES 01/02/2013 5 - Intolerance Comments: Sinus/Irritation with seasonal allergies Date Reviewed: 11/29/2020 Reviewed by: Sonja Barboza) Yared - Fully Assessed Reason for Visit: Request a Consult [Other] Prescriptions as of 10/30/2021 - medroxyPROGESTERone (DEPO-PROVERA) 150 mg/mL Inject 1 mL intramuscularly every 12 weeks. INJECT IM EVERY 12 WEEKS. - loratadine (CLARITIN ORAL) Take by mouth as needed. - pyridoxine, vitamin B6, (VITAMIN B-6) 50 mg tablet Take 1 tablet by mouth twice daily. - Dvqalmbk-Im-Lzv-Fe-FA ( VITAMIN) tab Take 1 tablet by mouth. - ferrous sulfate 324 mg (65 mg iron) TbEC Take 1 tablet by mouth once daily. Facility-Administered Medications as of 10/30/2021 - medroxyPROGESTERone 150 mg injection (DEPO-PROVERA) Problem List As Of Date 12/13/2020 Noted Resolved Irregular menstrual cycle [N92.6] 01/02/2013 11/04/2020 Dysmenorrhea [N94.6] 01/02/2013 11/04/2020 Iron deficiency [E61.1] 08/31/2013 History of depression [Z87.59, Z86.5*10/25/2020 History of miscarriage [Z87.59] 10/25/2020 History of ITP [Z86.2] 10/25/2020 Supervision of high risk in first tri*11/29/2020 Obesity in [O99.210] 11/29/2020 Rh negative status during in first tr*12/01/2020 Encounter Status:Closed by LULÚ NICOLE on 10/30/21 Normal [facility] Vital Signs Date Time Vital Sign Value Performing Clinician Vel neal 12-10-2024 11:30-0400 Body height 157.[address] Yaquelin Stephens MD Work Phone: [facility] 12-10-2024 11:30-0400 Body weight 117.[address] Yaquelin Stephens MD Work Phone: [facility] 11-12-2024 10:04-0500 Body weight 118.[address] Yaquelin Stephens MD Work Phone: [facility] 10-08-2024 11:25-0500 Body mass index (BMI) [Ratio] 47 kg/m2 Dr. Yaquelin Stephens MD Work Phone: [facility] 10-08-2024 11:25-0500 Body temperature 97.6 [degF] Dr. Yaquelin Stephens MD Work Phone: [facility] 10-08-2024 11:25-0500 Body weight 116.[address] Yaquelin Stephens MD Work Phone: [facility] 10-08-2024 11:25-0500 Diastolic blood pressure 78 mm[Hg] Dr. Yaquelin Stephens MD Work Phone: [facility] 10-08-2024 11:25-0500 Heart rate 106 /min Dr. Yaquelin Stephens MD Work Phone: [facility] 10-08-2024 11:25-0500 Respiratory rate 16 /min Dr. Yaquelin Stephens MD Work Phone: [facility] 10-08-2024 11:25-0500 SaO2% (BldA) [Mass fraction] 99 % Dr. Yaquelin Stephens MD Work Phone: [facility] 10-08-2024 11:25-0500 Systolic blood pressure 118 mm[Hg] Dr. Yaqulein Stephens MD Work Phone: [facility] 10-08-2024 10:01-0500 Body weight 116.[address] Yaquelin Stephens MD Work Phone: [facility] 09-03-2024 10:00-0500 Body weight 116.[address] Yaquelin Stephens MD Work Phone: [facility] 12-18-2023 11:00-0400 Body height 157.48 cm No Primary Care Physician [facility] 12-16-2023 00:20-0400 Body weight 126.91 kg No Primary Care Physician [facility] 11-19-2023 11:21-0500 Body height 157.48 cm No Primary Care Physician [facility] 11-15-2023 00:22-0500 Body weight 126.91 kg No Primary Care Physician [facility] 11-06-2023 11:37-0500 Body height 157.48 cm No Primary Care Physician [facility] 11-06-2023 11:37-0500 Body weight 125.91 kg No Primary Care Physician [facility] 10-23-2023 11:04-0500 Body weight 126.91 kg No Primary Care Physician [facility] 10-01-2023 13:50-0500 Body mass index (BMI) [Ratio] 52 kg/m2 No Primary Care Physician [facility] 10-01-2023 13:50-0500 Body temperature 97.2 [degF] No Primary Care Physician [facility] 10-01-2023 13:50-0500 Body weight 128.99 kg No Primary Care Physician [facility] 10-01-2023 13:50-0500 Diastolic blood pressure 78 mm[Hg] No Primary Care Physician [facility] 10-01-2023 13:50-0500 Heart rate 119 /min No Primary Care Physician [facility] 10-01-2023 13:50-0500 Respiratory rate 16 /min No Primary Care Physician [facility] 10-01-2023 13:50-0500 SaO2% (BldA) [Mass fraction] 99 % No Primary Care Physician [facility] 10-01-2023 13:50-0500 Systolic blood pressure 122 mm[Hg] No Primary Care Physician [facility] Encounters Encounter Date Encounter Type Care Provider Facility [facility]: [facility] Start: 12-10-2024 End: 12-14-[address] Yaquelin Stephens MD -Nutritional Serv [employer] Work Phone: Start: 12-10-2024 End: 12-14-[address] Yaquelin Stephens MD Work Phone: [facility] Work Phone: Start: 11-12-2024 End: 11-13-[address] Yaquelin Stephens MD -N[facility]al [employer] Work Phone: Start: 11-12-2024 End: 11-13-2024 ambulatory Yaquelin Stephens Facility:[facility] Start: 10-08-2024 End: 10-08-[address] Yaquelin Stephens MD -[facility] Work Phone: Start: 10-08-2024 End: 10-08-2024 ambulatory Yaquelin Angelo Facility:[facility] Start: 10-08-2024 End: 10-16-[address] Yaquelin Stephens MD -[employer] Work Phone: Start: 10-08-2024 End: 10-16-2024 ambulatory [place]elin [place] Facility:[facility] Start: 09-30-2024 End: 09-30-2024 Patient encounter procedure Andrez Tobin PA -[facility] Work Phone: Start: 09-30-2024 End: 09-30-2024 ambulatory Yaquelin [place] Facility:[facility] Start: 09-30-2024 End: 09-30-2024 ambulatory Yaquelin [place] Facility:[facility] Start: 09-30-2024 End: 09-30-2024 ambulatory [place]elin [place] [place]: 09-03-2024 End: 09-15-[address] Yaquelin Stephens MD -[employer] Work Phone: Start: 09-03-2024 End: 09-15-2024 ambulatory Yaquelin [place] Facility:[facility] Start: 08-04-2024 End: 08-15-2024 ambulatory Yaquelin [place] Facility:[facility] Start: 07-02-2024 End: 07-16-2024 ambulatory Yaquelin [place] Facility:[facility] Start: 06-26-2024 ambulatory Yaquelin [place] Facility :[facility] Start: 05-28-2024 End: 06-15-2024 ambulatory Yaquelin [place] Facility:[facility] Start: 05-09-2024 End: 05-09-2024 ambulatory Yaquelin [place] Facility:[facility] Start: 04-30-2024 End: 05-16-2024 ambulatory Yaquelin [place] Facility:[facility] Start: 04-30-2024 End: 05-16-2024 ambulatory Yaquelin [place] Facility:[facility] Start: 03-31-2024 End: 04-15-2024 ambulatory Yaquelin [place] Facility:[facility] Start: 03-17-2024 End: 03-17-2024 ambulatory Yaquelin [place] Facility:[facility] Start: 02-26-2024 End: 03-15-2024 ambulatory Yaquelin [place] Facility:[facility] Start: 01-22-2024 End: 02-14-2024 ambulatory Yaquelin Angelo Facility:[facility] Start: 12-18-2023 End: 01-14-2024 Discharged Recurring No Primary Care Physician [facility]-Nutritional Services Work Phone: Start: 12-18-2023 End: 01-14-2024 ambulatory No Primary Care Physician [facility] Work Phone: Start: 11-19-2023 End: 12-15-2023 ambulatory No Primary Care Physician [facility] Work Phone: Start: 11-19-2023 End: 12-15-2023 Discharged Recurring No Primary Care Physician [facility]-Nutritional Services Work Phone: Start: 11-06-2023 End: 11-14-2023 ambulatory No Primary Care Physician [facility] Work Phone: Start: 11-06-2023 End: 11-14-2023 Discharged Recurring No Primary Care Physician [facility]-Nutritional Services Work Phone: Start: 10-01-2023 End: 10-01-2023 Patient encounter procedure No Primary Care Physician [facility] Work Phone: Start: 07-29-2023 End: 07-29-2023 ambulatory [facility] Work Phone: Start: 07-29-2023 End: 07-29-2023 Patient encounter procedure [facility]-Laboratory Work Phone: Procedures Date Procedure Procedure Detail Performing Clinician Start: 06-06-2021 Antibody screen Comment on above: Order Comment: Speci men Type: BLOOD SPECIMEN Performed By: #### T SPN ####[facility] BLOOD BANKIA [id number] [place] [address] [place] Start: 03-21-2021 Antibody screen Comment on above: Performed By: #### S YPHTX, GLTGST #### [facility] [address] [place], [place] [address] Plan of Treatment Date Care Activity Detail Author Start: 10-01-2023 Patient referral [facility] Work Phone: Patient referral [facility] Work Phone: Immunizations Immunization Date Immunization Notes Care Provider Fa cility 10-16-2021 Covid (Pfizer) No Primary Ca re Physician [facility] 06-08-2021 influenza, injectabl e, quadrivalent, preservative free No Primary Care Physician [facility] 03-21-2021 tetanus toxoid, redu elizabeth diphtheria toxoid, and acellular pertussis vaccine, adsorbed No Primary Care Physician [facility] 09-24-2016 hepatitis B vaccine, pediatric or pediatric/adolescent dosage [facility] 09-18-2016 influenza, injectabl e, quadrivalent, preservative free [facility] 04-20-2009 varicella virus vaccine No P [facility] Care Physician [facility] Payers Date Payer Category Payer Unknown 2023 Self-pay [id number] 2023 Unknown [id number] Private Health Insurance [facility] [id number] Unknown [facility] [id number] Unknown [facility] [id number] Unknown [id number] 62 Unknown [id number] 2.16.840.1.590174.3.579.2.4 62 Unknown [id number] 2.16.840.1.737160.3.579.2.4 62 Unknown [id number] 2.16.840.1.660860.3.579.2.4 62 Unknown [id number] 2.16.840.1.632595.3.579.2.4 62 Unknown [id number] 2.16.840.1.731301.3.579.2.4 62 Unknown [id number] 2.16.840.1.880510.3.579.2.4 62 Unknown [id number] 2.16.840.1.736395.3.579.2.4 62 Unknown [id number] 2.16.840.1.316091.3.579.2.4 62 Unknown [id number] 2.16.840.1.058396.3.579.2.4 62 Unknown [id number] 2.16.840.1.376739.3.579.2.4 62 Unknown [id number] 2.16.840.1.474805.3.579.2.4 62 Unknown [id number] 2.16.840.1.256026.3.579.2.4 62 Unknown [id number] 2.16.840.1.832037.3.579.2.4 62 Unknown [id number] 2.16.840.1.662988.3.579.2.4 62 Unknown [id number] 2.16.840.1.781841.3.579.2.4 62 Unknown [id number] 2.16.840.1.107886.3.579.2.4 62 Unknown [id number] 2.16.840.1.549983.3.579.2.4 62 Unknown [id number] 2.16.840.1.612329.3.579.2.4 62 Unknown [id number] 2.16.840.1.079330.3.579.2.4 62 Unknown [id number] 2.16.840.1.665825.3.579.2.4 62 Unknown [id number] 2.16.840.1.717958.3.579.2.4 62 Social History Date Type Detail Facility Start: 10-19-2021 End: 10-01-2023 Tobacco smoking status NHIS Unknown if ever smoked [facility] Start: 11-02-2016 None [facility] Start: 11-22-2019 With Family [facility] Start: 1995 Sex Assigned At Female [facility] Start: 10-08-2024 Tobacco smoking stat us NHIS Never smoked tobacco (finding) [facility] Start: 12-15-2024 Sex Female (finding) [facility] Clinical Notes 12-15-2020 to 09-30-2024 Note Date & Type Note Facility 09-30-2024 Evaluation note Diagnosis Onset Date Resolution Viral gastroenteritis acute Jorge uary 2024 12:47pm Nausea and vomiting noneactive Janlindsay ry 2024 12:47pm PTSD (post-traumatic stress disorder) noneactive October 08 11:23am Chronic ITP (idiopathic thrombocytopenia) noneactive October 08, 2024 11:23am Influenza vaccination declined noneactive October 08 11:23am Memory changes noneactive October 082024 11:23am Morbid obesity with BMI of 50.0-59.9, adult noneactive September 11:23am Anxiety and depression noneactive Tavo solo 2024 11:23am Vitamin D deficiency noneactive Adan tay 2024 11:23am [facility] Work Phone: 1(820) 861-879602-17-2022 NoteHNO ID: [id number] Author: Lulú Nicole MD Service: ? Author Type: Physician Type: Progress Notes Filed: 11/02/2021 11:42 AM Note Text: DATE OF SERVICE: 11/02/2021 PROBLEM: hCeryl Squires presents for postop visit. SURGERY AND DATE: 10/26/21 bilateral salpingectomy and Lilletta IUD insertion PATHOLOGY: benign tubes SUBJECTIVE/INTERVAL HISTORY: Cheryl Squires reports that she feels well. No fever or chills. No shortness of breath, cough, or chest pain. No incisional redness, swelling, or drainage. Patient reports that her appetite is good. BM and urination are normal. Some spotting. OBJECTIVE: ABDOMEN: Abdomen soft, non-tender, no hepatosplenomegaly. Incisions healing well. ASSESSMENT: postop tubal, doing well w/ Lilleta PLAN: 1. Discussed results of pathology and implications with patient. 2. Postop restrictions reviewed. Lulú Nicole, [facility]02-14-2022 NoteHNO ID: [id number] Author: Lulú Nicole MD Service: ? Author Type: Physician Type: Progress Notes Filed: 10/30/2021 9:22 AM Note Text: Patient under laparoscopic bilateral salpingectomy at the line 10/26/2021 without complication. She was discharged home same day. She also had a Liletta IUD placed. Lulú Nicole, [facility]02-01-2022 NoteHNO ID: [id number] Author: Lulú Nicole MD Service: ? Author Type: Physician Type: Progress Notes Filed: 10/17/2021 1:09 PM Note Text: Cheryl Squires is a 26 year old female who presents for problem visit for contraception discussion. Desires to have IUD for mesntrual control but wants to have sterilization. OB History T2 L2 SAB1 IAB0 Ectopic0 Multiple0 Live Births2 Rn Staff History LMP: 09/06/2020 (Exact Date), Postmenopausal Age at Menarche: Age at First : Age at Menopause: Rn Staff History Comments: Sexual Activity: Not Currently; No partner data on record Contraception: No contraception data on record PAST MEDICAL HISTORY Diagnosis Date - Anemia - Blood dyscrasia - Chlamydia 2016 - History of immune thrombocytopenia - History of depression 10/25/2020 -Mood stable on no medication -Will consider counseling - Miscarriage - depression PAST SURGICAL HISTORY Procedure Laterality Date - NONE FAMILY HISTORY Problem Relation Age of Onset - Hypertension Mother - Hypertension Father - Lipids Father - Diabetes Father - other (Other) Father sleep apnea - Heart Maternal Grandmother heart attack/stroke - Lipids Maternal Grandmother - Hypertension Maternal Grandfather - Lipids Maternal Grandfather - Diabetes Paternal Grandmother - Heart Paternal Grandfather - No Known Problems Son Social History Tobacco Use - Smoking status: Never Smoker - Smokeless tobacco: Never Used Vaping Use - Vaping Use: Never used Substance Use Topics - Alcohol use: No - Drug use: No Current Outpatient Medications Medication Sig - medroxyPROGESTERone (DEPO-PROVERA) 150 mg/mL Inject 1 mL intramuscularly every 12 weeks. INJECT IM EVERY 12 WEEKS. - loratadine (CLARITIN ORAL) Take by mouth as needed. - Cfaosarv-Cr-Rxf-Fe-FA ( VITAMIN) tab Take 1 tablet by mouth. - ferrous sulfate 324 mg (65 mg iron) TbEC Take 1 tablet by mouth once daily. - pyridoxine, vitamin B6, (VITAMIN B-6) 50 mg tablet Take 1 tablet by mouth twice daily. (Patient not taking: Reported on 10/17/2021 ) Current Facility-Administered Medications Medication Dose Route Frequency - medroxyPROGESTERone 150 mg injection (DEPO-PROVERA) 150 mg INTRAMUSCULAR every 12 weeks Allergies As of Date: 10/17/2021 Allergen Noted Reaction POLYVITE-FLUORIDE 01/02/2013 Hives SEASONAL ALLERGIES 01/02/2013 Intolerance Fully Assessed 10/17/2021 Allergies and current medication updated:Yes EXAM: BP 112/70 Pulse 140 Resp 18 Ht 5' 2 (1.58m) Wt 260 lb (117.9kg) LMP 09/06/2020 BMI 47.54 kg/(m2). GENERAL: pleasant, female in no apparent distress ASSESSMENT AND PLAN: Encounter Diagnosis ICD-10-CM 1. Encounter for sterilization Z30.2 2. Encounter for management and injection of depo-Provera Z30.42 sterilization request. Desires last depo injection today. wants IUD in for menstrual control. Risks, benefits and alternatives to sterilization have been discussed with the patient. She declines reversible options including LARC. She understands sterilization is permanent, irreversible, risks of failure, regret and ectopic. In addition she understands there are surgical risks as well. Her questions were answered to her satisfaction and consent was signed. Medical Decision Making Lulú Nicole, [facility]02-01-2022 NoteHNO ID: [id number] Author: Shannan Mae RN Service: ? Author Type: ? Type: Progress Notes Filed: 10/17/2021 1:09 PM Note Text: Patient identified by name and date of . Cheryl Squires is here for a Depo Provera injection. Patient brought medication. Date last injected: 07/27/21 Depo-Provera, 150 mg, administered IM right upper quadrant gluteus, Lot # [id number], expiration date 02/2023. Depo-Provera was given without incident. Date of last menses: Patient's last menstrual period was 09/06/2020 (exact date). [email or web address] Provider Dr. Nicole was present in office at time of injection. [facility] NoteHNO ID: [id number] Author: Jodee Raya RN Service: ? Author Type: ? Type: Progress Notes Filed: 07/27/2021 10:19 AM Note Text: Patient identified by name and date of . Cheryl Squires is here for a Depo Provera injection. Patient brought medication. Date last injected: first injection - negative test. Depo-Provera, 150 mg, administered IM left upper quadrant gluteus, Lot # [id number], expiration date 11/13/2022. Depo-Provera was given without incident. Date of last menses: Patient's last menstrual period was 09/06/2020 (exact date). Irregular bleeding - No Menses ceased - Yes STD prevention discussed: Yes Patient instructed to return to clinic in 12 weeks +/- 5 days. [email or web address] Provider Carito James MD was present in office at time of injection. Jodee Raya [facility]11-[facility]-2021 NoteHNO ID: [id number] Author: Lulú Nicole MD Service: ? Author Type: Physician Type: Progress Notes Filed: 07/26/2021 2:15 PM Note Text: VISIT Cheryl Squires is a 26 year old year old here for visit. Delivery Summary: Unique Hernandez [[id number]] Delivery Information: Delivery Date: 06/07/21 Delivery type: Vaginal, Spontaneous Delivering Clinician: Hever Peña DO Vacuum Used: No Forceps Used: No Shoulder Dystocia Present: No Lacerations: None Episiotomy: None [place]: Gender: Female Weight (grams): 3682 g One Minute : 6 Five Minute : 9 ROS/ Recovery: Feeding: Bottle feeding problems: None Menses since delivery: none Menstrual pattern prior to : Regular periods [place] since delivery: Not resumed Depression: has some symptoms of depression and has seen a counselor and is seeing psychiatrist. (Lines 3 AND 4 applicable if either Lines 1 or 2 are positive) 1. Over the past 2 weeks have you felt down, depressed, or hopeless? Negative 2. Over the past two weeks, have you felt little interest or pleasure in doing things? Negative 3. Have you had thoughts of harming yourself or others? N/A 4. [place] Depression Scale (EPDS) Total Score: N/A Emotional support: Yes Bowel symptoms: Negative for abdominal discomfort, blood in stools or black stools and change in bowel habits Abdomen: She reports no incisional redness, tenderness, erythema Bladder symptoms: No dysuria, gross hematuria, urinary frequency, urinary urgency, or incontinence Other issues: None Last Pap: 2020 normal HPV: negative PAST MEDICAL HISTORY Diagnosis Date - Anemia - Blood dyscrasia - Chlamydia 2016 - History of immune thrombocytopenia - Miscarriage - depression PAST SURGICAL HISTORY Procedure Laterality Date - NONE FAMILY HISTORY Problem Relation Age of Onset - Hypertension Mother - Hypertension Father - Lipids Father - Diabetes Father - other (Other) Father sleep apnea - Heart Maternal Grandmother heart attack/stroke - Lipids Maternal Grandmother - Hypertension Maternal Grandfather - Lipids Maternal Grandfather - Diabetes Paternal Grandmother - Heart Paternal Grandfather - No Known Problems Son Social History Tobacco Use - Smoking status: Never Smoker - Smokeless tobacco: Never Used Substance Use Topics - Alcohol use: No - Drug use: No PHYSICAL EXAMINATION: Ht 5' 2 (1.58m) Wt 258 lb (117.0kg) LMP 09/06/2020 BMI 47.18 kg/(m2). GENERAL: pleasant, female in no apparent distress HEENT: Normocephalic, atraumatic, mucus membranes moist and no lesions NECK: Supple, full range of motion, no adenopathy and thyroid normal DERMATOLOGY: Normal, without lesions, non-icteric and non-hirsute BREAST: soft, non-tender, symmetric, no dominant mass, normal nipple-areolar complex, no lymphadenopathy and no nipple discharge CHEST: Normal inspiratory effort ABDOMEN: soft, non-tender and no masses. INCISION: No incisional redness, swelling, or drainage PELVIC: external genitalia normal, normal Bartholin's glands, urethra, [place]'s glands, no vulvar lesions, no cervical lesions, good vaginal support, physiologic discharge present, normal appearing perineal body and perianal region BIMANUAL: uterus normal size, shape and consistency, no adnexal masses and non-tender NEURO: alert and oriented x3,exam grossly non-focal EXTREMITIES: normal ASSESSMENT AND PLAN: 26 year old status post with normal course. Contraception plan: depo until sterilization check platelets Follow up: RTC for annual exams and PRN Risks, benefits and alternatives to sterilization have been discussed with the patient. She declines reversible options including LARC. She understands sterilization is permanent, irreversible, risks of failure, regret and ectopic. In addition she understands there are surgical risks as well. Her questions were answered to her satisfaction and consent was signed Lulú Nicole, [facility]09-24-2021 NoteHNO ID: [id number] Author: Elana Addison DO Service: Obstetrics Author Type: Resident Type: Progress Notes Filed: 06/09/2021 5:29 AM Note Text: Attestation signed by Constantino Taylor DO at 06/09/2021 10:04 PM MFM Attending Note I saw and evaluated the patient. I agree with the resident's findings and plan of care as documented below. PPD#2 s/p with PPH in the setting of chronic ITP. Platelets stable at 75. HCT 24.8. Per patient, infants platelets are also stable. Lochia improving. Declines PPBC. OK for D/c home. Plan for follow up with primary OB in [place]. All of her questions were answered. Constantino Taylor DO, MPH, FACOG 06/09/2021 9:21 AM OBSTETRICS PROGRESS NOTE SERVICE DATE: June 09, 2021 SERVICE TIME: 5:23 AM ASSESSMENT: 26 year old female who is Day #2 status post Vaginal, Spontaneous delivery with female . PLAN: 1. Routine care - RH-, female, RI, formula 2. hemorrhage -Secondary to ITP and uterine atony, QBL 1607 -S/p TXA, Methergine IM, Methergine PO x24hrs, Hemabate, and Cytotec -Hgb 10.2 on admission->10.3 immediately PP->8.0 PPD#1 -Fibrinogen 412 at time of hemorrhage -Asymptomatic for ABLA - PO iron ordered, pt already has prescription -Vaginal bleeding now very minimal 3. ITP -Platelets 63->80->75 -S/p 1 week of Prednisone in April - no longer taking, stress dose not indicated 4. RH negative - baby is RH negative and Rhogam not indicated 5. History of depression -Mood stable and appropriate on exam -Monitor closely for signs/symptoms 6. Dispo - d/c today Plan of care discussed with: Provider, RN, Patient. SUBJECTIVE: Patient has no current complaints. Tolerating PO intake. Urinating without difficulty. Passing flatus. Pain well controlled with current regimen. Lochia decreasing. Ambulating without difficulty. Denies rodriguez, changes in vision, cp, sob or ruq pain OBJECTIVE: PHYSICAL EXAM: Heart: RR, S1, S2 Lungs: clear to auscultation Abdomen: Soft Fundus firm below umbilicus Non-distended Extremities: No calf tenderness and Edema equal bilaterally LAST VITALS: Pulse BP Resp O2 Sat Temp Pain 98 119/70 18 98 % 36.7 ?C (98.1 ?F) 0 Avg Min Max Vitals (last 12 hours) Flowsheet Row Name Average Min Max BP: Systolic 119 119 119 BP: Diastolic 70 70 70 Temp 36.7 ?C (98.1 ?F) 36.7 ?C (98.1 ?F) 36.7 ?C (98.1 ?F) Pulse 98 98 98 Resp 18 18 18 SpO2 98 % 98 % 98 % HT/WT/BMI: Height Weight BMI 157.5 cm (5' 2) 124.3 kg (274 lb) 50.11 LABS ABO/RH: 03/21/2021: AB NEGATIVE 06/07/2021: AB; Negative RUBELLA: 11/29/2020: 0.72 Index Value; Immune HANDH: Hematocrit (%) Date Value 06/08/2021 24.8 06/07/2021 31.9 06/06/2021 31.1 Hemoglobin (g/dL) Date Value 06/08/2021 8.0 06/07/2021 10.3 06/06/2021 10.2 Diagnostic tests reviewed for today's visit: Most recent labs and imaging results. SIGNATURE: Elana Addison DO PATIENT NAME: Cheryl Squires DATE: June 09, 2021 TIME: 5:23 [facility]09-23-2021 NoteHNO ID: [id number] Author: Elana Addison DO Service: Obstetrics Author Type: Resident Type: Progress Notes Filed: 06/08/2021 7:36 AM Note Text: Attestation signed by Constantino Taylor DO at 06/08/2021 1:37 PM MFM Attending Note I saw and evaluated the patient. I agree with the resident's findings and plan of care as documented below. PPD#1 s/p with PPH in the setting of chronic ITP. Bleeding/lochia stable. Mild tachycardia this AM, otherwise vitals wnl. Asymptomatic. Will repeat CBC today. If HCT and platelets stable and cleared from peds, will D/C home this afternoon. Declines PPBC at this time. Plan for follow up with primary OB in [place]. All of her questions were answered. Constantino Taylor DO, MPH, FACOG 06/08/2021 1:33 PM OBSTETRICS PROGRESS NOTE SERVICE DATE: June 08, 2021 SERVICE TIME: 7:31 AM ASSESSMENT: 26 year old female who is Day #1 status post Vaginal, Spontaneous delivery with female . PLAN: 1. Routine care - female, RH-, RI 2. hemorrhage -Secondary to ITP and uterine atony -QBL 1607 -S/p TXA, Methergine IM, Hemabate IM, Cytotec buccal at time of delivery -Now s/p Methergine PO x24 hours -Vaginal bleeding now very stable -Hgb 10.2 on admission -> 10.3 immediately -Fibrinogen 412 at time of hemorrhage -I/Os: 850cc out over the past 24 hours -Continue to monitor closely 3. ITP -Platelets 63->80 immediately -S/p 1 week course of Prednisone in April - no longer taking -Declined IVIG or platelet transfusion on admission 4. RH negative - baby RH negative, Rhogam not indicated 5. History of depression -mood stable and appropriate on exam today -Continue to monitor closely 6. Dispo - d/c per attending Plan of care discussed with: Provider, RN, Patient. SUBJECTIVE: Patient has no current complaints. Tolerating PO intake. Urinating without difficulty. Passing flatus. Pain well controlled with current regimen. Lochia decreasing. Ambulating without difficulty. Denies rodriguez, changes in vision, cp, sob or ruq pain. OBJECTIVE: PHYSICAL EXAM: Heart: RR, S1, S2 Lungs: clear to auscultation Abdomen: Soft Fundus firm below umbilicus Non-distended Extremities: No calf tenderness and Edema equal bilaterally LAST VITALS: Pulse BP Resp O2 Sat Temp Pain 94 103/75 16 97 % 36.9 ?C (98.4 ?F) 3 Avg Min Max Vitals (last 12 hours) Flowsheet Row Name Average Min Max BP: Systolic 103 103 103 BP: Diastolic 75 75 75 Temp 36.9 ?C (98.4 ?F) 36.9 ?C (98.4 ?F) 36.9 ?C (98.4 ?F) Pulse 94 94 94 Resp 16 16 16 SpO2 97 % 97 % 97 % HT/WT/BMI: Height Weight BMI 157.5 cm (5' 2) 124.3 kg (274 lb) 50.11 LABS ABO/RH: 03/21/2021: AB NEGATIVE 06/07/2021: AB; Negative RUBELLA: 11/29/2020: 0.72 Index Value; Immune HANDH: Hematocrit (%) Date Value 06/07/2021 31.9 06/06/2021 31.1 Hemoglobin (g/dL) Date Value 06/07/2021 10.3 06/06/2021 10.2 Diagnostic tests reviewed for today's visit: Most recent labs and imaging results. SIGNATURE: Elana Addison DO PATIENT NAME: Cheryl Squires DATE: June 08, 2021 TIME: 7:31 [facility]09-22-2021 NoteHNO ID: [id number] Author: CINDY Reilly Service: Care Management Author Type: Law Clerk Type: Care Mgt Initial Assessment Filed: 06/07/2021 4:09 PM Note Text: CARE MANAGEMENT: ASSESSMENT AND DISCHARGE PLAN SERVICE DATE: June 07, 2021 SERVICE TIME: 12:30 PM PRIMARY CARE PHYSICIAN: Lamin Jamison MD ADMISSION STATUS: Inpatient Needs Prior to Discharge: Ready for Discharge;Discharge Prescriptions [place] [facility] [place] Patient/[place] Stated Goals: Other Goal Health [facility]Medicaid Health Issues Impacting Discharge Plan: None Last Discharge Date: N/A Is this Within the Past 30 days? Last discharge within 30 days: No Advance Directive: Current Advance Directive: None Corporate Affairs Manager Attempted to Assist with AD Completion: Yes Action: Education Provided Health LiteracyHow often do you need to have someone help you when you read instructions, pamphlets, or other written material from your doctor or pharmacy? : 1 - Never How confident are you filling out medical forms by yourself?: 1 - Extremely If Patient scores > 3 on either question, the following interventions were put into place:: Use of plain language and active listening with Patient and family;Teach back methods employed to ensure comprehension;Patient did not score > 3 on either question.;Sit with Patient;Gave Patient the opportunity to ask questions Baseline Mental Status Functional Status: Independent Does Patient Currently Receive Any Community Services or Home Care?: None Equipment Prior to Admission: None Has the Patient Been in a Assisted Facility in the Past 30 days?: No SOCIAL: Living Arrangements: Home Lives With: Partner Financial Resources: Not Applicable Primary Contact: Extended Emergency Contact Information Primary Emergency Contact: Tai Mcgill Relation: Grandparent Supportive Patient Contact:: Yes Caregiver AssessmentCaregiver is ready, willing and able to meet the patient's needs as recommended by the inter-professional team:: Yes Does the patient have an acute stroke diagnosis, or has the patient had a stroke during this admission?: No Patient's transition needs and plan for meeting these needs: home with self care Patient's perception of need for this admission: to give Medication Adherance I am convinced of the importance of my prescription medication: 0 - Agree Completely I worry that my prescription medication will do more harm than good to me : 0 - Disagree Completely I feel financially burdened by my mcy-ed-[id number] expenses for my prescription medication:: 0 - Disagree Completely Risk Score: 0 Patient is categorized as: Low risk < 2 Are you interested in bedside delivery of your medications? Yes Is Patient Psychosocially Complex?: No ASSESSMENT AND PLAN: Medical Needs: Medical Needs: None Psychosocial Needs: Psychosocial Needs: Mental Health Diagnosis Mental Health Information: Anxiety Upon discharge, where will your child sleep? Elin Quinones FREEDOM OF CHOICE EXPLAINED: [place] of Choice Given: No Reason Not Given: No placements necessary POTENTIAL TRANSITION PLANS Home Chart reviewed. The pateint is admitted due to give ? Spoke with patient at the bedside. Explained care management role. Functional: the patient lives at home with her significant other and this is her 2nd child. The patient has 4 year old son. Transportation: the patient is independent and drives to appointments. Equipment Prior to Admission: none Support: Tai Mcgill (Grandparent) [phone] Pharmacy: [facility] [address] [place] [id number] PCP: Undecided will uses her insurance website to see who is in network with her insurance. Social work met with the patient and she is bonding well with her . She reports she has everything at home and has WIC set up. The patient reports the will sleep in Bassinet and crib. The patient has car seat and all supplies needed for the . The patient reports she has had post depression in past and was give resources in her area of [facility] in where to seek help if needed. The patient is prepared and denies any concerns at this time. Social work continue to follow for treatment plan and transitional planning. SIGNATURE: CINDY Reilly PATIENT NAME: Cheryl Squires DATE: June 07, 2021 TIME: 3:21 PM PAGER/CONTACT #: [phone] NoteHNO ID: [id number] Author: CINDY Reilly Service: Care Management Author Type: Law Clerk Type: Care Mgt Progress Note Filed: 06/07/2021 4:13 PM Note Text: SOCIAL WORK INITIAL ASSESSMENT SERVICE DATE: 06/07/2021 SERVICE TIME: 12:30 PM : 1995 Delivery Mode: Vaginal Weight: 8 lb 1.9 oz Gestational Age: 39w1d Cheese Wrapper: Johanny VICK MOTHER Name: Cheryl Squires Age: 25 Marital Status: Signifcant other MOTHER'S MEDICAL HISTORY Care: Yes Control Discussed: Encouraged patient to discuss with Provider. MENTAL HEALTH/SUBSTANCE ABUSE HISTORY Depression LIVING SITUATION Home: Lives with Significant Other in house Social Supports: Family Support Insurance/Community Resources Currently in Place: Parents notified to add baby to insurance within 30 days., Medicaid, WIC (Women, Infants AND Children) Employment/School: not working currently [place] Arrangements: No additional [place] needed PLAN/REFERRALS/INFORMATION PROVIDED: Planning to do Both, Breastfeed and Bottlefeed. Prepared for Baby at Home Social Work to remain available as needed. This worker's name and phone number given and resources given as needed. SIGNATURE: CINDY Reilly PATIENT NAME: Cheryl Squires DATE: June 07, 2021 TIME: 4:09 PM PAGER/CONTACT #: [phone] NoteHNO ID: [id number] Author: Elana Addison DO Service: Obstetrics Author Type: Resident Type: Progress Notes Filed: 06/07/2021 6:40 AM Note Text: Reviewed immediate labs with Dr. Peña. Labs stable. Vaginal bleeding stable. Will continue to monitor closely. Will consider repeating labs if patient becomes symptomatic for ABLA. CBC, Coags, BMP, Mg, Phos Recent Labs 06/07/21 0208 06/06/21 0847 WBC 22.37* 10.62 HB 10.3* 10.2* HCT 31.9* 31.1* PLT 80* 65* NA -- 134* K -- 3.6* CHLOR -- 103 CO2 -- 18* BUN -- 5* CREAT -- 0.57* GLUC -- 89 CA -- 8.[address] Discussed with Dr. Peña. Elana Addison DO Pager # [phone] 06/07/2021 6:40 [facility]09-22-2021 NoteHNO ID: [id number] Author: Ariela Ariza DO Service: Obstetrics Author Type: Resident Type: Progress Notes Filed: 06/07/2021 12:07 AM Note Text: OB Progress Note Service Date: June 07, 2021 Service Time: 12:04 AM S: Very uncomfortable. O: Vitals: Status: 06/06/21 1430 06/06/21 1939 06/06/21 19406/06/212357 BP: 135/74 132/69 Pulse: 95 98 94 Resp: Temp: 36.7 ?C (98.1 ?F) 36.2 ?C (97.2 ?F) 36.2 ?C (97.2 ?F) TempSrc: Temporal Temporal Temporal SpO2: 98% Weight: Height: CERVICAL EXAM: Last Exam Notes: Dilation: 8 (06/06/21 2356 : Elana Addison DO) Effacement (%): 90 (06/06/212355 : Elana Addison DO) Station: -1 (06/06/212355 : Elana Addison DO) Presentation: Vertex (06/06/21928 : Valentin Soria DO) MEMBRANES: Status: Membrane Status: Artificial ROM after labor (06/06/212147 : Ariela Ariza DO) Rupture Date: 06/06/21 (06/06/212147 : Ariela Ariza DO) Rupture Time: 2144 (06/06/212147 : Ariela Ariza, DO) Amniotic Fluid Color: Clear (06/06/212147 : Ariela Ariza DO) Amniotic Fluid Amount: Moderate (06/06/212147 : Ariela Arzia DO) Additional Findings: None FHT: 125/moderate/+accels/no decels though periods of broken tracing TOCO: difficulty tracing Cat I FHT A/P: 26 year old EGA:39w1d. Admitted for induction of labor Active Hospital Problems Diagnosis Date Noted - Encounter for elective induction of labor 06/06/2021 -GBS negative -s/p Ren balloon -s/p Cytotec placed -Pitocin per protocol -Desires natural and limited ability for regional anesthesia given ITP -Amniotomy at 2139, clear fluid -FSE -Growth US: 33w 1d EFW 2,534 88% SIGNATURE: Ariela Ariza DO PATIENT NAME: Cheryl Squires DATE: June 07, 2021 TIME: 12:04 AM PAGER/CONTACT #: [phone] [place], [place] [address]-22-2021 Note HNO ID: [id number] Author: Elana Addison DO Service: Obstetrics Author Type: Resident Type: Progress Notes Filed: 06/06/2021 11:39 PM Note Text: Patient is very uncomfortable. She was recently checked 25 minutes ago and was found to be 5/70/-1. She is now 7/90/-1. Her monitoring is very difficult due to her discomfort. The patient was presented with options of sitting still intermittently for FHR monitoring vs an FSE placement. She desired an FSE placement which was placed without difficulty. Cervix is now 7/90/-1. FHT is Category I. Elana Addison DO Pager # [phone] 06/06/2021 11:39 [facility]09-22-2021 NoteHNO ID: [id number] Author: Crista Cano MD Service: Obstetrics Author Type: Resident Type: Progress Notes Filed: 06/06/2021 10:48 PM Note Text: S: Tolerating labor well without epidural O: BP 132/69 Pulse 94 Temp 36.2 ?C (97.2 ?F) (Temporal) Resp 17 Ht 157.5 cm (5' 2) Wt 124.3 kg (274 lb) LMP 09/06/2020 (Exact Date) SpO2 98% BMI 50.12 kg/m? FHT: 145 / mod / +accels / -decels [place]: difficult to trace while on birthing ball CE: 06/06/21 0906/06/21 14406/06/21192106/06/212147 Dilation: 2 4 4 4 Effacement (%): 60 60 70 70 Station: -2 -2 -2 -2 Presentation: Vertex A/P: Cheryl Squires is a at 39w0d admitted for EIOL in setting of COVID -Cat I -pitocin at 16 [facility] Problems Diagnosis Date Noted - Encounter for elective induction of labor 06/06/2021 Overview Note: -GBS negative -s/p Ren balloon -s/p Cytotec placed -Pitocin per protocol -Desires natural and limited ability for regional anesthesia given ITP -Amniotomy at 2140, clear fluid -Growth US: 33w 1d EFW 2,534 88% Crista Cano MD Pager # [phone] 06/06/2021 10:45 [facility]09-21-2021 NoteHNO ID: [id number] Author: Ariela Ariza DO Service: Obstetrics Author Type: Resident Type: Progress Notes Filed: 06/06/2021 9:50 PM Note Text: Cervical exam /-2. Head well applied. Amniotomy performed for moderate amount of clear fluid at 2140. Ariela Ariza DO, A TECHNOLOGY RECRUITER PGY-1 06/06/2021 9:50 PM Pager # [phone] NoteHNO ID: [id number] Author: Ariela Ariza DO Service: Obstetrics Author Type: Resident Type: Progress Notes Filed: 06/06/2021 9:11 PM Note Text: OB Progress Note Service Date: June 06, 2021 Service Time: 9:08 PM S: No concerns. O: Vitals: Status: 06/06/21 1429 06/06/21 1430 06/06/21 1939 06/06/21 194 BP: 135/74 132/69 Pulse: 77 95 98 94 Resp: 18 17 Temp: 36.7 ?C (98.1 ?F) 36.2 ?C (97.2 ?F) TempSrc: Temporal Temporal SpO2: 96% 98% Weight: Height: CERVICAL EXAM: Last Exam Notes: Dilation: 4 (06/06/211921 : Mirella Carrillo MD) Effacement (%): 70 (06/06/211921 : Mirella Carrillo MD) Station: -2 (06/06/211921 : Mirella Carrillo MD) Presentation: Vertex (06/06/21928 : Valentin Soria DO) MEMBRANES: Status: Membrane Status: Intact (06/06/21928 : Valentin Soria DO) Additional Findings: None FHT: 140/moderate/+accels/no decels though periods of broken tracing. Presumed maternal HR while ambulating TOCO: irregular Cat I FHT A/P: 26 year old EGA:39w0d. Admitted for induction of labor Pitocin currently at [address] [place] [address] Problems Diagnosis Date Noted - Encounter for elective induction of labor 06/06/2021 -GBS negative -s/p Ren balloon -s/p Cytotec placed -Pitocin per protocol -Desires natural and limited ability for regional anesthesia given ITP -Amniotomy prn -Growth US: 33w 1d EFW 2,534 88% SIGNATURE: Ariela Ariza DO PATIENT NAME: Cheryl Squires DATE: June 06, 2021 TIME: 9:08 PM PAGER/CONTACT #: [phone] [place], [place] [address]09-21-2021 Note HNO ID: [id number] Author: Ariela Ariza DO Service: Obstetrics Author Type: Resident Type: Progress Notes Filed: 06/06/2021 6:10 PM Note Text: OB Progress Note Service Date: June 06, 2021 Service Time: 6:02 PM S: Patient walking on unit. O: Vitals: Status: 06/06/21 0755 06/06/21 1008 06/06/21 1429 06/06/21 1430 BP: 121/75 135/74 Pulse: 107 77 95 Resp: 16 18 Temp: 36.6 ?C (97.9 ?F) 36.7 ?C (98.1 ?F) TempSrc: Temporal Temporal SpO2: 96% 96% Weight: 124.3 kg (274 lb) Height: 157.5 cm (5' 2) CERVICAL EXAM: Last Exam Notes: Dilation: 4 (06/06/21 144 : Lulú Sy DO) Effacement (%): 60 (06/06/211441 : Lulú Sy DO) Station: -2 (06/06/21 144 : Lulú Sy DO) Presentation: Vertex (06/06/21928 : Valentin Soria DO) MEMBRANES: Status: Membrane Status: Intact (06/06/21928 : Valentin Soria DO) Additional Findings: None FHT: 140/moderate/+accels/no decels TOCO: irregular Cat I FHT when tracing appropriately. Patient up walking with periods of broken tracing. A/P: 26 year old EGA:39w0d. Admitted for induction of labor. Pitocin currently at [address] [place] [address] Problems Diagnosis Date Noted - Encounter for elective induction of labor 06/06/2021 -GBS negative -s/p Ren balloon -s/p Cytotec placed -Pitocin per protocol -Desires natural and limited ability for regional anesthesia given ITP -Amniotomy prn -Growth US: 33w 1d EFW 2,534 88% SIGNATURE: Ariela Ariza DO PATIENT NAME: Cheryl Squires DATE: June 06, 2021 TIME: 6:02 PM PAGER/CONTACT #: [phone] [place], [place] [address]-21-2021 Note HNO ID: [id number] Author: Mirella Carrillo MD Service: Obstetrics Author Type: Resident Type: Progress Notes Filed: 06/06/2021 6:07 PM Note Text: OB Progress Note Service Date: June 06, 2021 Service Time: 5:53 PM S: tolerating contractions well O: Vitals: Status: 06/06/21 0755 06/06/21 1008 06/06/21 1429 06/06/21 1430 BP: 121/75 135/74 Pulse: 107 77 95 Resp: 16 18 Temp: 36.6 ?C (97.9 ?F) 36.7 ?C (98.1 ?F) TempSrc: Temporal Temporal SpO2: 96% 96% Weight: 124.3 kg (274 lb) Height: 157.5 cm (5' 2) CERVICAL EXAM: Last Exam Notes: Dilation: 4 (06/06/211441 : Lulú Sy DO) Effacement (%): 60 (06/06/211441 : Lulú Sy DO) Station: -2 (06/06/211441 : Lulú Sy DO) Presentation: Vertex (06/06/21928 : Valentin Soria DO) MEMBRANES: Status: Membrane Status: Intact (06/06/21928 : Valentin Soria DO) FHT: 140-150/mod juice/+accels/-decels (but frequently broken) TOCO: q2min Cat I FHT while accurately tracing. Presumably picking up maternal HR at times as pt is walking. A/P: 26 year old EGA:39w0d. Admitted for elective induction of labor in the setting of ITP. Active Hospital Problems Diagnosis Date Noted - Encounter for elective induction of labor 06/06/2021 -GBS negative -s/p Ren balloon -s/p Cytotec placed -Pitocin per protocol -Desires natural and limited ability for regional anesthesia given ITP -Amniotomy prn -Growth US: 33w 1d EFW 2,534 88% SIGNATURE: Mirella Carrillo MD, PYG3 PATIENT NAME: Cheryl Squires DATE: June 06, 2021 TIME: 5:53 PM PAGER/CONTACT #: [phone]09-21-2021 Note HNO ID: [id number] Author: Valentin Soria DO Service: Obstetrics Author Type: Resident Type: Progress Notes Filed: 06/06/2021 2:31 PM Note Text: OB Progress Note Service Date: June 06, 2021 Service Time: 2:30 PM S: The patient is a 26 year old female, , who is at 39w0d with an DAMIAN of 06/13/2021, by Last Menstrual Period dating method. O: Vitals: BP 121/75 Pulse 107 Temp (Src) 97.9 (Temporal) Resp 16 Ht 5' 2 (1.58m) Wt 274 lb (124.3kg) SpO2 96% LMP 09/06/2020 BMI 50.10 kg/(m2). Cervical Exam: Dilation: 2 (06/06/21 0929 : Valentin Soria DO) Membrane Status: Intact at for a Fluid FHT: 140/Moderate (6-25 bpm) Variability/Accelerations Present/None Decelerations TOCO: Irregular Contractions, Irregular A/P: 26 year old EGA:39w0d. Admitted for EIOL ITP NST Interpretation: Cat I Active Hospital Problems Diagnosis Date Noted - Encounter for elective induction of labor 06/06/2021 -GBS negative -s/p Ren balloon -s/p Cytotec placed -Pitocin per protocol -Epidural prn, desires natural -Amniotomy prn -Growth US: 33w 1d EFW 2,534 88% SIGNATURE: Valentin Soria DO PATIENT NAME: Cheryl Squires DATE: June 06, 2021 TIME: 2:30 PM PAGER/CONTACT #: [phone]09-21-2021 Note HNO ID: [id number] Author: Lulú Sy DO Service: Obstetrics Author Type: Resident Type: Progress Notes Filed: 06/06/2021 2:44 PM Note Text: S: Patient tolerating contractions. Ren balloon was externalized. Will transition to pitocin soon O: BP 135/74 Pulse 95 Temp 36.7 ?C (98.1 ?F) (Temporal) Resp 18 Ht 157.5 cm (5' 2) Wt 124.3 kg (274 lb) LMP 09/06/2020 (Exact Date) SpO2 96% BMI 50.12 kg/m? FHT: 145/min-mod/+accels/-decels [place]: irregular Category I 06/06/21 0929 06/06/21 1442 Dilation: 2 4 Effacement (%): 60 60 Station: -2 -2 Presentation: Vertex A/P: 26 year old at 39w0d for EIOL ITP Active Hospital Problems Diagnosis Date Noted - Encounter for elective induction of labor 06/06/2021 -GBS negative -s/p Ren balloon -s/p Cytotec placed -Pitocin per protocol -Epidural prn, desires natural -Amniotomy prn -Growth US: 33w 1d EFW 2,534 88% Lulú Sy DO TECHNOLOGY RECRUITER, PGY-1 Pager #[phone] June 06, 2021 at 2:29 [facility]09-21-2021 NoteHNO ID: [id number] Author: Valentin Soria DO Service: Obstetrics Author Type: Resident Type: Progress Notes Filed: 06/06/2021 10:01 AM Note Text: Ren balloon and Cytotec#1 placed at 1000. Patient tolerated procedure. Valentin Soria DO Pager # [phone] 06/06/2021 10:01 [facility]09-15-2021 NoteHNO ID: [id number] Author: Lulú Nicole MD Service: ? Author Type: ? Type: Progress Notes Filed: 05/31/2021 2:57 PM Note Text: NST SUMMARY PROVIDER ASSESSMENT AND INTERPRETATION Cheryl Squires is a 26 year old female, , who is at 38w1d with an DAMIAN of 06/13/2021, by Last Menstrual Period dating method. Indications for NST: maternal obesity. ITP Baseline: 135 Variability: Moderate Accelerations: Present 15 X 15 Decelerations: None Contractions: TOCO: None Interpretation: Category I and Reactive Had OB VISIT yesterday, to deliver in [place], they are calling her w/ date and time. SIGNATURE: Lulú Nicole, [facility]09-14-2021 NoteHNO ID: [id number] Author: Constantino Taylor DO Service: ? Author Type: Physician Type: Progress Notes Filed: 06/04/2021 7:06 PM Note Text: MATERNAL MEDICINE COMANAGEMENT SERVICE DATE: May 30, 2021 SERVICE TIME: 15:00 PRIMARY OB PROVIDER: Carito James MD HISTORY OF THE PRESENT ILLNESS: Cheryl Squires is a 26 year old, at 38w0d being seen for co-management of ITP. She denies any obstetric complaints and reports appropriate movement. testing is being performed with primary OB in [place]. Cheryl follows with Dr. Neri at [facility]. Last seen on 05/08/21. Minimal improvement in platelets after steroid course. Cheryl does desire an epidural in labor. Anesthesia consult not yet performed. She denies any signs/symptoms of bleeding. CURRENT MEDICATIONS: Current Outpatient Medications Medication Sig - loratadine (CLARITIN ORAL) Take by mouth as needed. - Ocxipuhx-Us-Dfu-Fe-FA ( VITAMIN) tab Take 1 tablet by mouth. - ferrous sulfate 324 mg (65 mg iron) TbEC Take 1 tablet by mouth once daily. - pyridoxine, vitamin B6, (VITAMIN B-6) 50 mg tablet Take 1 tablet by mouth twice daily. (Patient not taking: Reported on 05/30/2021 ) No current facility-administered medications for this visit. REVIEW OF SYSTEMS: The remainder of the review of systems is negative. BP 121/69 Ht 5' 2 (1.58m) Wt 274 lb (124.3kg) LMP 09/06/2020 BMI 50.10 kg/(m2). LABS Diagnostic tests reviewed for today's visit: Most recent labs and imaging results. ASSESSMENT/PLAN: 26 year old at 38w0d with Active Non-Hospital Problems Diagnosis - Elevated glucose tolerance test -Elevated 1 hour GCT -Normal 3 hour GTT - Rh negative status during in third trimester - Supervision of high risk in third trimester - Obesity in - History of depression -Mood stable on no medication -Will consider counseling - History of ITP - Chronic ITP (idiopathic thrombocytopenia) (HCC) -Recent platelet count 72. Prior 65, 87 -Follows with Dr. Neri [facility]. Will reach out to review option for IVIG to increase platelets as patient desires regional anesthesia. -Anesthesia consult placed -Plan for IOL at 39 weeks. COVID and IOL orders placed. - Iron deficiency -Continue iron supplementation -HCT stable Medical Decision Making: Problems: Moderate: 2+ stable chronic illnesses Data: Unique source(s) for external note(s) reviewed: 1 Unique test result(s) reviewed: 3+ Unique test(s) ordered: 1 Independent interpretation of test from other physician/QHCP Risk: Low: Low risk from testing/treatment Medical Decision Making Level: 4 - Moderate [facility] NoteHNO ID: [id number] Author: Lulú Nicole MD Service: ? Author Type: ? Type: Progress Notes Filed: 05/23/2021 4:42 PM Note Text: NST SUMMARY PROVIDER ASSESSMENT AND INTERPRETATION Cheryl Squires is a 26 year old female, , who is at 37w0d with an DAMIAN of 06/13/2021, by Last Menstrual Period dating method. Indications for NST: Obesity Baseline: 140 Variability: Moderate Accelerations: Present 15 X 15 Decelerations: None Contractions: TOCO: irritability Interpretation: Category I and Reactive SIGNATURE: Lulú Nicole, [facility]09-01-2021 NoteHNO ID: [id number] Author: Lulú Nicole MD Service: ? Author Type: ? Type: Progress Notes Filed: 05/17/2021 3:22 PM Note Text: NST SUMMARY PROVIDER ASSESSMENT AND INTERPRETATION Cheryl Squires is a 26 year old female, , who is at 36w1d with an DAMIAN of 06/13/2021, by Last Menstrual Period dating method. Indications for NST: Obesity Baseline: 140 Variability: Moderate Accelerations: Present 15 X 15 Decelerations: None Contractions: TOCO: None Interpretation: Category I and Reactive SIGNATURE: Lulú Nicole, [facility]08-24-2021 NoteHNO ID: [id number] Author: Mayur Kramer MD Service: ? Author Type: Physician Type: Progress Notes Filed: 05/09/2021 3:57 PM Note Text: Feeling well today, no subjective sx. Reports normal FM and denies VB, LOF, contractions, abdominal pain or any sx Pre-E. No petechiae or rash, no gingival bleeding or bruising. ROS otherwise negative. VS as per Flowsheet General: Alert, oriented x 3, NAD. HEENT: Normocephalic, atraumatic, mucous membranes moist, sclerae anicteric. Abdominal: Soft/obese, non-tender, non-distended without rebound or guarding. Uterus non-tender. Extremities: Non-tender, no erythema, trace edema. Skin: no rash or skin changes. Psych: normal mood and affect, at baseline OB: US today with BPP 04/23, see report for details Impression/Plan: Return OB visit at 35w0d with the following issues addressed today: History of depression Mood stable without e/o depression. Continue serial mood assessment. Early visit recommended. Obesity in BPP reassuring (04/23) today. Weekly surveillance is recommended until delivery (office NSTs). Pre-E sx/precautions were reviewed. Chronic ITP (idiopathic thrombocytopenia) (HCC) implications/risks of ITP were reviewed. Patient with some steroid-responsiveness, with increase in plt count from ~50k to 87k. Repeat CBC will be obtained today. Overall plt count remains borderline for neuraxial analgesia. Discussed with patient plt count threshold for neuraxial block (70-80k) as well as threshold for surgery/CD (> 50k). Reviewed alternatives to neuraxial analgesia, including nitrous oxide and fentanyl MASTER COASTWISE YACHT (patient comfortable with this approach as she had narcotic analgesia during her prior labor). Appreciate Hematology recommendations, and IVIG was discussed at last visit as additional therapy to improve plt prior to delivery. I also reviewed with the OB team at the [place] office the availability of resources at [facility], where patient is planning delivery. The MDs here mentioned that platelet transfusions are unavailable at [facility]. As such, I recommended she should deliver at another hospital within the [facility] system ([facility]) where additional blood bank resources are available and she prefers to deliver in [place]. Also recommended scheduled/coordinated IOL at 39 weeks, unless a clinical indication for earlier delivery arises, and anesthesia consult. I've contacted the M office there to update them on her course and facilitate scheduling of her IOL and anesthesia consult. She should have a TANDC for PRBC/plt in preparation for delivery. Discussed that an additional course of steroids with/without IVIG may be provided in advance of delivery in an attempted to optimize her plt count (which is being coordinated by her Records Specialist and would be performed within a week of delivery). Lastly, reviewed that thrombocytopenia is uncommon and that delivery is recommended for routine obstetric indications. OB precautions and FM expectations/kick counts reviewed. Continue routine OB care with primary OB. May return to [facility] at any point with additional questions/concerns. All questions answered. Ms. Squires expressed understanding and agreement with the plan of care. Mayur Kramer MD I spent a total of 30 minutes on the date of the service which included preparing to see the patient, [id number] patient care, completing clinical documentation, obtaining and/or reviewing separately obtained history, performing a medically appropriate examination, counseling and educating the patient/family/caregiver, ordering medications, tests, or procedures and communicating results to the patient/family/caregiver.[facility]08-23-2021 NoteHNO ID: [id number] Author: Omer Neri MD Service: ? Author Type: Physician Type: Progress Notes Filed: 05/08/2021 5:20 PM Note Text: [facility] DISTANCE HEALTH VISIT PATIENT NAME: Cheryl Squires CLINIC NO: [id number] ATTENDING PHYSICIAN: Omer Neri MD. DATE OF SERVICE: 05/08/2021 Some elements copied from my note 03/15/21 which have been updated where appropriate, and all reflect current medical decision making from today, May 08, 2021. This visit is a Virtual MyChart video visit encounter which required patient-provider interaction for the medical decision making as documented below. Persons Present: patient Cheryl Squires has consented to this distance health encounter. I spent a total of 25 minutes on the date of the service which included preparing to see the patient, [id number] patient care, completing clinical documentation, obtaining and/or reviewing separately obtained history, performing a medically appropriate examination, counseling and educating the patient/family/caregiver and independently interpreting results (not separately reported). HISTORY REVIEWED (electronic chart updated): Some elements copied from my note 12/15/20 which have been updated where appropriate, and all reflect current medical decision making from today, March 15, 2021. Patient returns for follow-up of immune thrombocytopenic purpura. She is currently , in her 27th week. She had thrombocytopenia with her first 4 years ago. There was a labial tear and hemorrhage. Platelet counts of 66,000, 48,000 and 44,000 were recorded at the time of her delivery in 2017. The estimated blood loss was 500 cc. She was not transfused. There was no pre-eclampsia or evidence of HELLP. Two months post delivery her count was 107,000. She was seen by Dr. Stew Kennedy in [place] but didn't require specific ITP therapy. There was mild thrombocytopenia in 2012. The count is now lower, close to that of her last , but it has remained stableduring this . Her due date is 06/13. INTERVAL HISTORY: At her last visit I prescribed a course of decadron, 12 mg daily for 7 days, to measure her platelet response in preparation for epidural anesthesia. She had 2 CBC's done but doesn't appear to have had a significant response. Data Reviewed: Most recent labs 01/26/2021 03/01/2021 03/21/2021 03/28/2021 WBC 3.70 - 11.00 k/uL 15.89 (H) 15.30 (H) 14.30 (H) 19.32 (H) RBC 3.90 - 5.20 m/uL 4.39 4.01 3.94 3.86 (L) Hemoglobin 11.5 - 15.5 g/dL 12.9 12.0 11.5 11.3 (L) Hematocrit 36.0 - 46.0 % 37.0 34.7 (L) 33.7 (L) 32.7 (L) MCV 80.0 - 100.0 fL 84.3 86.5 85.5 84.7 MCH 26.0 - 34.0 pG 29.4 29.9 29.2 29.3 MCHC 30.5 - 36.0 g/dL 34.9 34.6 34.1 34.6 RDW-CV 11.5 - 15.0 % 14.6 14.3 13.7 13.2 Platelet Count 150 - 400 k/uL 70 (L) 60 (L) 60 (L) 87 (L) Neut% % 82.3 83.0 85.0 90.0 Abs Neut (ANC) 1.45 - 7.50 k/uL 13.09 (H) 12.70 (H) 12.16 (H) 17.39 (H) Lymph% % 11.8 11.4 9.9 5.0 Abs Lymph 1.00 - 4.00 k/uL 1.88 1.75 1.41 0.97 (L) Haralson% % 4.0 4.4 3.9 3.4 Abs Haralson <0.87 k/uL 0.63 0.67 0.56 0.66 Eosin% % 1.6 1.0 0.9 0.8 Abs Eosin <0.46 k/uL 0.25 0.15 0.13 0.15 Baso% % 0.3 0.2 0.3 0.0 Abs Baso <0.11 k/uL 0.04 0.03 0.04 0.00 REVIEW OF SYSTEMS: A complete ROS performed during a previous encounter was updated and reviewed with the patient. There are no changes. Refer to my note dated 03/15/21. VIDEO PHYSICAL EXAMINATION: (if done, performed via video enabled technology) GENERAL: alert and appropriate, in no distress and well-hydrated, well nourished SKIN: no rash noted RESPIRATORY: breathing non-labored ASSESSMENT: Chronic ITP exacerbated by . Her count in March after decadron was borderline for epidural anesthesia. I suspect her count is back to its former baseline of 50-60,000. She is meeting with a high-risk OB tomorrow. If an epidural isn't necessary she can proceed with delivery without trying to further treat her thrombocytopenia. If spinal anesthesia is going to be done, recommend she received IVIG in divided doses 1 week prior to an induced delivery, or platelet transfusion just prior to the procedure. She will have a repeat CBC done tomorrow and contact the office to let us know what her delivery plan will be. MD Omer Arroyo, [facility]08-17-2021 NoteHNO ID: [id number] Author: Siena Henriquez MD Service: ? Author Type: Physician Type: Progress Notes Filed: 05/02/2021 1:06 PM Note Text: Patient here for growth scan. See ultrasound report for details. Siena Henriquez, [facility]07-13-2021 NoteHNO ID: [id number] Author: Mayur Kramer MD Service: ? Author Type: Physician Type: Progress Notes Filed: 03/28/2021 2:08 PM Note Text: Feeling well today, no subjective sx. Reports normal FM and denies VB, LOF, contractions, abdominal pain or any sx Pre-E. ROS otherwise negative. Wt 274 lb 3.2 oz (124.4 kg) LMP 09/06/2020 (Exact Date) BMI 50.15 kg/m? General: Alert, oriented x 3, NAD. HEENT: Normocephalic, atraumatic, mucous membranes moist, sclerae anicteric. CV: RRR, normal S1S2 without murmur/gallops. Pulmonary: CTAB without wheezes/rales. Abdominal: Soft/obese, non-tender, non-distended without rebound or guarding. Uterus non-tender. Extremities: Non-tender, no erythema, trace edema. Skin: no rash or skin changes. Psych: normal mood and affect OB: US today with AGA growth, normal AFV Data/Labs: reviewed in EMR Impression/Plan: Return OB visit at 29w0d with the following issues addressed today: Elevated glucose tolerance test Patient with abnormal glucola and has not completed 3hr GTT due to dexamethasone (completeing a course to assess steroid-responsiveness of ITP; glucola result was prior to steroid exposure). Patient completed steroid course today and has 3hr GTT scheduled within the coming week. An overview of the maternal/ risks and implications of GDM was provided. Additional counseling and management to be provided if GDM diagnosis confirmed. growth AGA today. Chronic ITP (idiopathic thrombocytopenia) (HCC) Reviewed implications of maternal thrombocytopenia/ITP. Reviewed recommendation for serial assessment of maternal plt count in with therapies directed to minimize the risk of maternal bleeding (last plt count ~60k). We discussed the target plt count of > 50k prior to surgery (CD) or ~70-80k for neuraxial analgesia. Appreciate Hematology management recommendations. Patient completing a course of dexamethasone to assess steroid responsiveness. 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 Availability of anesthesia consultation was also reviewed. Lastly, we reviewed that ITP may result in thrombocytopenia (10-15%) however the risk of IVH or other adverse sequelae secondary to thrombocytopenia is uncommon (~1% or less). As such delivery should be performed for routine obstetric indications. History of depression Mood remains stable off antidepressant therapy. Continue mood surveillance. Risk of depression reviewed and early visit recommended. Supervision of high risk in first trimester Continue routine OB care with primary OB provider; shared care with MFM. Completed TDAP and RhIG. Third trimester counseling provided. Obesity in Gestational weight gain appropriate and IOM guidelines reviewed. US today with AGA growth. Repeat US recommended in 4 weeks and was ordered/scheduled. OB precautions and FM expectations/kick counts reviewed. Continue routine OB care with primary provider. MFM office visit and US in 4 weeks or earlier should she meet criteria for GDM. All questions answered. Ms. Squires expressed understanding and agreement with the plan of care. Mayur WHITT I spent a total of 30 minutes on the date of the service which included preparing to see the patient, [id number] patient care, completing clinical documentation, obtaining and/or reviewing separately obtained history, performing a medically appropriate examination, counseling and educating the patient/family/caregiver, ordering medications, tests, or procedures and communicating results to the patient/family/caregiver.[facility]07-06-2021 NoteHNO ID: [id number] Author: Shannan Mae RN Service: ? Author Type: ? Type: Progress Notes Filed: 03/21/2021 4:06 PM Note Text: Cheryl Squires 25 year old is here for her injection of Rhophylac. Cheryl Squires ABO/RH(D) (no units) Date Value 11/29/2020 AB NEGATIVE Antibody Screen (no units) Date Value 11/29/2020 NEG Cheryl Squires is RH Negative Rhophylac was given without incident. See immunizations for details of immunizations administered today. Provider was present in office at time of injection Cheryl Squires was given her Rhophylac pocket card. Shannan Mae RN[facility]07-06-2021 NoteHNO ID: [id number] Author: Candida Mckinney Ma Service: ? Author Type: ? Type: Progress Notes Filed: 03/21/2021 4:06 PM Note Text: Patient identified by name and date of . Cheryl Squires presents today for a vaccination of Tdap. Patient denies an allergy to latex: yes Patient denies a severe (life-threatening) allergy to a previous dose of Tdap, DTP, DTaP, DT or Td vaccine. Yes Patient denies history of epilepsy or neurological problems: Yes Patient is afebrile and denies being moderately or severely ill: Yes Patient denies history of Guillain-[place] Syndrome (a severe paralytic illness): Yes Tdap Adacel injection was given without incident. See immunizations for details of immunizations administered today. VIS sheet provided: Yes Provider Carito James MD was present in office at time of injection.[facility]06-30-2021 NoteHNO ID: [id number] Author: Omer Neri MD Service: ? Author Type: Physician Type: Progress Notes Filed: 03/15/2021 3:57 PM Note Text: [facility] DISTANCE HEALTH VISIT This visit is a Virtual MyChart video visit encounter which required patient-provider interaction for the medical decision making as documented below. Persons Present: patient Cheryl Squires has consented to this distance health encounter. I spent a total of 20 minutes on the date of the service which included preparing to see the patient, [id number] patient care, completing clinical documentation, obtaining and/or reviewing separately obtained history, performing a medically appropriate examination, counseling and educating the patient/family/caregiver, ordering medications, tests, or procedures, communicating with other HCPs (not separately reported) and independently interpreting results (not separately reported). HISTORY REVIEWED (electronic chart updated): Some elements copied from my note 12/15/20 which have been updated where appropriate, and all reflect current medical decision making from today, March 15, 2021. Patient returns for follow-up of immune thrombocytopenic purpura. She is currently , in her 27th week. She had thrombocytopenia with her first 4 years ago. There was a labial tear and hemorrhage. Platelet counts of 66,000, 48,000 and 44,000 were recorded at the time of her delivery in 2016. The estimated blood loss was 500 cc. She was not transfused. There was no pre-eclampsia or evidence of HELLP. Two months post delivery her count was 107,000. She was seen by Dr. Stew Kennedy in [place] but didn't require specific ITP therapy. There was mild thrombocytopenia in 2012. The count is now lower, close to that of her last , but it has remained stable so far during this : Data Reviewed: Most recent labs 11/29/2020 12/27/2020 01/26/2021 03/01/2021 WBC 3.70 - 11.00 k/uL 11.46 (H) 12.88 (H) 15.89 (H) 15.30 (H) RBC 3.90 - 5.20 m/uL 4.68 4.42 4.39 4.01 Hemoglobin 11.5 - 15.5 g/dL 13.2 12.6 12.9 12.0 Hematocrit 36.0 - 46.0 % 38.4 36.7 37.0 34.7 (L) MCV 80.0 - 100.0 fL 82.1 83.0 84.3 86.5 MCH 26.0 - 34.0 pG 28.2 28.5 29.4 29.9 MCHC 30.5 - 36.0 g/dL 34.4 34.3 34.9 34.6 RDW-CV 11.5 - 15.0 % 14.6 14.5 14.6 14.3 Platelet Count 150 - 400 k/uL 51 (L) 54 (L) 70 (L) 60 (L) Neut% % 82.3 83.0 Abs Neut (ANC) 1.45 - 7.50 k/uL 13.09 (H) 12.70 (H) Lymph% % 11.8 11.4 Abs Lymph 1.00 - 4.00 k/uL 1.88 1.75 Haralson% % 4.0 4.4 Abs Haralson <0.87 k/uL 0.63 0.67 Eosin% % 1.6 1.0 Abs Eosin <0.46 k/uL 0.25 0.15 Baso% % 0.3 0.2 Abs Baso <0.11 k/uL 0.04 0.03 Her due date is 06/13. REVIEW OF SYSTEMS: A complete ROS performed during a previous encounter was updated and reviewed with the patient. There are no changes. Refer to my note dated 12/15/20. VIDEO PHYSICAL EXAMINATION: (if done, performed via video enabled technology) GENERAL: alert and appropriate, in no distress and well-hydrated, well nourished SKIN: no rash noted RESPIRATORY: breathing non-labored ASSESSMENT: Chronic ITP currently exacerbated by . Her platelet counts have remained stable but are too low for epidural anesthesia. Her due date is 06/13 but we will give her a trial of decadron, 12 mg daily for 7 days starting next week, to ladler her steroid responsiveness and tolerance of side effects. She will have another CBC done and call the office afterwards. I will follow-up with her in April. Omer Neri, [facility]05-13-2021 NoteHNO ID: [id number] Author: Urban Albert MD Service: ? Author Type: Physician Type: Progress Notes Filed: 01/26/2021 2:51 PM Note Text: Please see ultrasound report for details of this visit. Urban Albert M.D.[facility]04-01-2021 NoteHNO ID: [id number] Author: Omer Neri Service: ? Author Type: Physician Type: Progress Notes Filed: 12/15/2020 4:56 PM Note Text: [facility] DISTANCE HEALTH VISIT PATIENT NAME: Cheryl Squires [facility] NO: [id number] ATTENDING PHYSICIAN: Omer Neri MD. DATE OF SERVICE: 12/15/[address] Urban Albert for an opinion regarding ITP. My final recommendations will be communicated back to the requesting physician by way of shared Medical record or letter to requesting physician via [place] mail. This visit is a Virtual [employer] encounter which required patient-provider interaction for the medical decision making as documented below. Persons Present: patient Cheryl Squires has consented to this distance health encounter. I spent a total of 40 minutes on the date of the service which included preparing to see the patient, [id number] patient care, completing clinical documentation, obtaining and/or reviewing separately obtained history, performing a medically appropriate examination, counseling and educating the patient/family/caregiver and communicating with other HCPs (not separately reported). HISTORY REVIEWED (electronic chart updated): 25 yowf referred for a history of immune thrombocytopenic purpura. She is currently , in her 14th week. She had thrombocytopenia with her first 4 years ago. There was a labial tear and hemorrhage. Platelet counts of 66,000, 48,000 and 44,000 were recorded at the time of her delivery in 2017. The estimated blood loss was 500 cc. She was not transfused. There was no pre-eclampsia of evidence of HELLP. Two months post delivery her count was 107,000. She was seen by Dr. Stew Kennedy in [place] but didn't require specific ITP therapy. There was mild thrombocytopenia in 2012. The count is now lower, close to that of her last : 10/29/2008 01/02/2013 08/03/2013 11/29/2020 WBC, Etta 5.7 RBC, [place]ta 4.49 Hemoglobin, [place] 13.0 Hematocrit, [place] 36.5 (L) MCV, [place] 81.3 MCH, [place] 29.0 MCHC, [place] 35.6 RDW, [place] 13.4 Platelet Cnt, [place] 202 Neut%, [place] 58.5 Lymp%, [place] 30.2 Haralson%, [place] 8.0 Eos%, [place] 3.0 Baso%, [place] 0.3 Abs Neut, [place] 3.3 Abs Lymp, [place] 1.7 Abs Haralson, [place] 0.5 Abs Eos, [place] 0.2 Abs Baso, [place] 0.0 WBC 11.66 (H) 11.76 (H) 11.46 (H) RBC 4.61 4.68 4.68 Hemoglobin 13.3 13.4 13.2 Hematocrit 38.6 39.7 38.4 MCV 83.7 84.8 82.1 MCH 28.9 28.6 28.2 MCHC 34.5 33.8 34.4 RDW-CV 13.1 13.5 14.6 Platelet Count 108 (L) Platelets Clumped, Estimate Low 51 (L) Neut% 70.3 Abs Neut (ANC) 8.20 (H) Lymph% 18.0 Abs Lymph 2.10 Haralson% 7.1 Abs Haralson 0.83 Eosin% 4.3 Abs Eosin 0.50 (H) Baso% 0.3 Abs Baso 0.03 There are no interim platelet counts between 2017 and now. She had a miscarriage last year at 6 weeks. Data Reviewed: Most recent labs REVIEW OF SYSTEMS: Generally feels well. No fatigue, fever, weight loss. Some bruising intermittently. No dyspnea, chest pain, palpitations. Good appetite without nausea, emesis, abdominal pain, diarrhea, constipation, hematochezia, melena. No urinary symptoms. No headache, dizziness, loss of balance or muscle strength. The remainder of the ROS is negative. Current Outpatient Medications Medication Sig Dispense Refill - pyridoxine, vitamin B6, (VITAMIN B-6) 50 mg tablet Take 1 tablet by mouth twice daily. - Xrvnnboa-Cq-Qhy-Fe-FA ( VITAMIN) tab Take 1 tablet by mouth. - ferrous sulfate 324 mg (65 mg iron) TbEC Take 1 tablet by mouth once daily. 0 - DIPHENHYDRAMINE HCL (ALLERGY MEDICATION ORAL) Take by mouth. No current facility-administered medications for this visit. ALLERGIES Allergen Reactions - Polyvite-Fluoride Hives - Seasonal Allergies Intolerance Sinus/Irritation with seasonal allergies PAST MEDICAL HISTORY Diagnosis Date - Anemia - Chlamydia 2017 - History of immune thrombocytopenia - Miscarriage - depression FAMILY HISTORY Problem Relation Age of Onset - Hypertension Mother - Hypertension Father - Lipids Father - Diabetes Father - other (Other) Father sleep apnea - Heart Maternal Grandmother heart attack/stroke - Lipids Maternal Grandmother - Hypertension Maternal Grandfather - Lipids Maternal Grandfather - Diabetes Paternal Grandmother - Heart Paternal Grandfather - No Known Problems Son Social History Tobacco Use - Smoking status: Never Smoker - Smokeless tobacco: Never Used Substance Use Topics - Alcohol use: No - Drug use: No VIDEO PHYSICAL EXAMINATION: (if done, performed via video enabled technology) GENERAL: alert and appropriate, in no distress and well-hydrated, well nourished SKIN: no rash noted RESPIRATORY: breathing non-labored ASSESSMENT: Possible ITP currently exacerbated by as in 2017. However, there aren't enough data to (more content not included)...[facility] Evaluation noteNo assessment information availableWBarney Children's [facility] Work Phone: Evaluation note* Diagnosis Onset Date Resolution Status PTSD (post-traumatic stress disorder) noneactive Chronic ITP (idiopathic thrombocytopenia) noneactive Establishing care with new doctor, encounter for noneactive Influenza vaccination declined noneactive Morbid obesity with BMI of 50.0-59.9, adult noneactive Anxiety and depression nonea ctive Vitamin D deficiency noneact [facility] Work Phone: Reason for referral (narrative)No reason for referral information availableWBarney Children's Medical Center Work Phone: Summary Purpose Family History No Family History Records Found Relationship Condition Age at Onset Recorded Date/T stefanie father Diabetes mellitus Unknown Relationship Condition Age at Onset Recorded Date/T stefanie father Diabetes mellitus Unknown Hypertension Unknown High blood cholesterol Unknown mother Anxiety Unknown Acute depression Unknown Mental disorder Unknown grandfather Malignant neoplasm Unknown Relationship Condition Age at Onset Recorded Date/T stefanie father Diabetes mellitus Unknown Hypertension Unknown High blood cholesterol Unknown mother Anxiety Unknown Acute depression Unknown Mental disorder Unknown Depression Unknown grandfather Malignant neoplasm Unknown Advance Directives No Advanced Directives Records Found Advance Directive Response Recorded Date/ Time Living Will No October 19 9:56am Power of Logistics/Shipper No October 19, 2021 9:56am Advance Directive Response Recorded Date/ Time Living Will No October 19 10:56am Power of Logistics/Shipper No October 19, 2021 10:56am Advance Directive Response Recorded Date/ Time Living Will No August 16 1:24am Do you have a Healthcare Power of Logistics/Shipper? No August 16, 2024 1:24am Living Will No October 17 2:48am Do you have a Healthcare Power of Logistics/Shipper? No October 17, 2024 2:48am Living Will No November 14, 2024 2:09am Do you have a Healthcare Power of Logistics/Shipper? No November 14, 2024 2:09am Living Will No September 16 1:16am Do you have a Healthcare Power of Logistics/Shipper? 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 MORBID [employer]ESITY MORBID OBESITY Reason for Visit PTSD (post-traumatic stress disorder) Chronic ITP (idiopathic thrombocytopenia) Establishing care with new doctor, encounter for Influenza vaccination declined Morbid obesity with BMI of 50.0-59.9, adult Anxiety and depression Vitamin D deficiency Chief Complaint 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 MORBID OBESITY MORBID OBESITY MORBID OBESITY Reason for Visit PTSD (post-traumatic stress disorder) Chronic ITP (idiopathic thrombocytopenia) Establishing care with new doctor, encounter for Influenza vaccination declined Morbid obesity with BMI of 50.0-59.9, adult Anxiety and depression Vitamin D deficiency Chief Complaint Admit Date MORBID OBESITY September 03, 2024 9:49am Nausea/vomiting September 30, 2024 1 2:47pm MORBID [employer] October 08, 2024 9 :46am 6 M FU October 08, 2024 1 1:23am MORB[employer] November 12, 2024 9:57am MORBID [employer]ESITY December 10, 2024 11: 33am Reason for Visit Admit Date Viral gastroenteritis September 30, 2024 12:47pm Nausea and vomiting September 30, 2024 1 2:47pm PTSD (post-traumatic stress disorder) Tavo solo 2024 11:23am Chronic ITP (idiopathic thrombocytopenia ) October 08, 2024 11:23am Influenza vaccination declined September 172024 11:23am Memory changes October 08, 2024 1 1:23am Morbid obesity with BMI of 50.0-59.9, ad ult October 08, 2024 11:23am Anxiety and depression October 08 11:23am Vitamin D deficiency October 08, 2024 11:23am Additional Source Comments INFORMATION SOURCE (unrecogn ized section and content) DATE CREATED AUTHOR 06/12/2021 [facility] DATE CREATED AUTHOR AUTHOR'S ORGANIZ ATION 12/04/2021 [facility] DATE CREATED AUTHOR AUTHOR'S ORGANIZ ATION [facility] Care Teams (unrecognized sec tion and content) Team Status: Active Member Role Status Dates No Primary Care Physician Family Provider Active No Primary Care Physician Primary Care Provider Active Team Status: Inactive Member Role Status Dates RAS ABBOTT Attending Provider, Referring Provider A ctive No Primary Care Physician Primary Care Provider Active Team Status: Active Member Role Status Dates No Primary Care Physician Family Provider Active Dr. Yaquelin Stephens MD Primary Care Provider Active Team Status: Inactive Member Role Status Dates No Primary Care Physician Primary Care Provider, Refer ring Provider Active Dr. Yaquelin Stephens MD Attending Provider Active Team Status: Inactive Member Role Status Dates Dr. Yaquelin Stephens MD Primary Care Pro vider, Attending Provider, Referring Provider Active Team Status: Active Member Role Status Dates Dr. Yaquelin Stephens MD Primary Care Provider Active Team Status: Inactive Member Role Status Dates Dr. Yaquelin Stephens MD Primary Care Provider Active Start: September 03, 2024 End: September 15, 2024 Dr. Yaquelin Stephens MD Attending Provider Active Start: September 03, 2024 End: September 15, 2024 Dr. Yaquelin Stephens MD Referring Provider Active Start: September 03, 2024 End: September 15, 2024 Team Status: Inactive Member Role Status Dates Dr. Yaquelin Stephens MD Primary Care Provider Active Start: September 30, 2024 End: September 30, 2024 FRANKIE Liu Attending Provider Active Sta rt: September 30, 2024 End: September 30, 2024 Team Status: Inactive Member Role Status Dates Dr. Yaquelin Stephens MD Primary Care Provider Active Start: October 08, 2024 End: October 16, 2024 Dr. Yaquelin Stephens MD Attending Provider Active Start: October 08, 2024 End: October 16, 2024 Dr. Yaquelin Stephens MD Referring Provider Active Start: October 08, 2024 End: October 16, 2024 Team Status: Inactive Member Role Status Dates Dr. Yaquelin Stephens MD Primary Care Provider Active Start: October 08, 2024 End: October 08, 2024 Dr. Yaquelin Stephens MD Attending Provider Active Start: October 08, 2024 End: October 08, 2024 Dr. Yaquelin Stephens MD Referring Provider Active Start: October 08, 2024 End: October 08, 2024 Team Status: Inactive Member Role Status Dates Dr. Yaquelin Stephens MD Primary Care Provider Active Start: November 12, 2024 End: November 13, 2024 Dr. Yaquelin Stephens MD Attending Provider Active Start: November 12, 2024 End: November 13, 2024 Dr. Yaquelin Stephens MD Referring Provider Active Start: November 12, 2024 End: November 13, 2024 Team Status: Inactive Member Role Status Dates Dr. Yaquelin Stephens MD Primary Care Provider Active Start: December 10, 2024 End: December 14, 2024 Dr. Yaquelin Stephens MD Attending Provider Active Start: December 10, 2024 End: December 14, 2024 Dr. Yaquelin Stephens MD Referring Provider Active Start: December 10, 2024 End: December 14, 2024 Goals (unrecognized section and content) Goals may be documented in a n alternate sectionGoals may be documented in an alternate sectionGoals may be documented in an alternate sectionGoals may be documented in an alternate sectionGoals may be documented in an alternate section FOR RECORDS PERTAINING TO PATIENTS WHO ARE OR HAVE BEEN ENROLLED IN A CHEMICAL DEPENDENCY/SUBSTANCEABUSE PROGRAM, SOME INFORMATION MAY BE OMITTED. This clinical summary was aggregated from multiple sources. Caution should be exercised in using it in the provision of clinical care. This summary normalizes information from multiple sources, and as a consequence, information in this document may materially change the coding, format and clinical context of patient data. In addition, data may be omitted in some cases. CLINICAL DECISIONS SHOULD BE BASED ON THE PRIMARY CLINICAL RECORDS. [facility] [employer] [facility]. provides no warranty or guarantee of the accuracy or completeness of information in this document.
[2025-05-08 09:00] LABS: Hematocrit 42.7 % (37-47); Hemoglobin 14.3 g/dL (12.0-15.0); Immature Granulocytes Count 0.020 X10^3/uL (0.0-0.0); Mean Corp Hgb Conc 33.5 g/dL (32-36); Mean Corpuscular Volume 84.1 fL (81-99); Mean Platelet Vol. 14.6 fl (6.2-12.0); NRBC Flagged by Analyzer 0 % (0-5); Platelet Count 115 K/mm3 (150-450); RBC Distribution Width CV 13.4 % (11.6-14.6); RBC Distribution Width SD 41.3 fl (35.1-43.9); Red Blood Count 5.08 M/mm3 (4.2-5.4); White Blood Count 8.1 K/mm3 (4.4-11.0)
[2025-05-08 10:05] LABS: AST(SGOT) 15 U/L (<=31); Alanine Aminotransfer ALT/SGPT 13 U/L (<=34); Albumin, Serum 4.3 g/dL (3.5-5.0); Alkaline Phosphatase 65 U/L (35-104); Anion Gap 15 (5-15); BUN 18 mg/dL (4-19); BUN/Creat Ratio 23.6 RATIO (10-20); Calcium,Total 8.8 mg/dL (7.6-11.0); Carbon Dioxide 16.5 mmol/L (21.0-32.0); Chloride 105 mmol/L (98-108); Ferritin 66 ng/mL (22-378); Globulin 2.6 g/dL (2.2-4.2); Glucose 96 mg/dL (70-99); Iron 58 ug/dL (50-170); Iron Binding Capacity,Total 268 ug/dL (250-450); Iron Binding Capacity,Unsat 210 ug/dL (228-428); Potassium 4.2 mmol/L (3.3-5.1); Vitamin D,25 Hydroxy 24.3 ng/mL (30-100)
== END | disposition home or self-care (01) ==
LOC: LAB 08:11
PROVIDERS: PCP Internal Medicine
DX: E55.9 Vitamin D deficiency, unspecified (principal); Z79.899 Other long term (current) drug therapy
CPT/HCPCS: 36415; 80053; 82306; 82542; 82728; 83036; 83540; 83550; 85025